=== PATIENT | female | born 1955 | race African-American/Black ===

== ENCOUNTER 2020-01-10 09:09 | Inpatient (IN) | payer OTHER ==
--- NOTE | 2020-01-10 12:19 | BHS.RME ---
Substance Use & Tx History - Substance Use History Heroin Substance amount: 2 bags Frequency of use: Daily Substance route: Inhalation (ex: sniffing or snorting) Date of Last Use: 01/09/20 Cocaine- Powder Substance amount: 2 bags Frequency of use: Daily Substance route: Inhalation (ex: sniffing or snorting) Date of Last Use: 01/09/20 Physical/Psych/Mental Status - Behavior General Behavior: Increased activity (restlessness, agitation) Eye Contact: Normal - Cooperativeness Cooperativeness: Cooperative - Thinking Thought Processes: Tight, Logical, Goal Directed - Physical Health Problems Is patient presently having any pain?: No Does patient presently have any injuries (include location): No Does patient currently have a fever: No Is patient : No COWS - Scale Resting Pulse: 2= [place] 101-120 Sweatin=Flushed/Facial Moisture Restless Observation: 1= Difficult to Sit Still Pupil Size: 2= Moderately Dilated Bone or Joint Aches: 2= Severe Diffuse Aches Runny Nose/ Eye Tearin= Runny Nose/Eyes GI Upset > 30mins: 2= Nausea/Diarrhea Tremor Observation: 1= Tremor [place], Not Seen Yawning Observation: 1= 1-2x During Session Anxiety or Irritability: 1=Feels Anxious/Irritable Goose Flesh Skin: 3=Piloerection COWS Score: 19
--- NOTE | 2020-01-10 12:25 | HP ---
COWS - Scale Resting Pulse: 2= [place] 101-120 Sweatin=Flushed/Facial Moisture Restless Observation: 1= Difficult to Sit Still Pupil Size: 2= Moderately Dilated Bone or Joint Aches: 2= Severe Diffuse Aches Runny Nose/ Eye Tearin= Runny Nose/Eyes GI Upset > 30mins: 2= Nausea/Diarrhea Tremor Observation: 1= Tremor [place], Not Seen Yawning Observation: 1= 1-2x During Session Anxiety or Irritability: 1=Feels Anxious/Irritable Goose Flesh Skin: 3=Piloerection COWS Score: 19 CIWA Score - Admission Criteria OASAS Guidelines: Admission for Medically Managed Detox: Requires at least one of the followin. CIWA greater than 12 2. Seizures within the past 24 hours 3. Delirium tremens within the past 24 hours 4. Hallucinations within the past 24 hours 5. Acute intervention needed for co occurring medical disorder 6. Acute intervention needed for co occurring psychiatric disorder 7. Severe withdrawal that cannot be handled at a lower level of care (continued vomiting, continued diarrhea, abnormal vital signs) requiring intravenous medication and/or fluids 8. Admitting History and Physical - Admission Chief Complaint: " I want to go to detox to stop and I have grandkids." History of Present Illness: 64 year old female with history of opioid dependence and cocaine use disorder. Heroin: 2 bags daily, started at age 42, she did overdose 6 months ago, last time used yesterday, doesn't have a narcan kit Cocaine: 2 bags daily, started using at age 22, last time used yesterday. PMH: HTN, DM,HLD, Psurg: C/S and tubal ligation Psych: Schizophrenia, Bipolar trazodone seroquel Lives with daughter and granddaughter in [place] No legal issues pending. She meets criteria as she has multiple medical and psychiatric co-morbidities and has overdosed in the past. History Source: Patient Limitations to Obtaining History: No Limitations - Past Medical History Cardiovascular: Yes: HTN, Hyperlipdemia Psych: Yes: Anxiety, Bipolar, Schizophrenia Endocrine: Yes: Diabetes Mellitus - Past Surgical History Past Surgical History: Yes: - Smoking History Smoking history: Current every day smoker Have you smoked in the past 12 months: Yes Aproximately how many cigarettes per day: 10 - Alcohol/Substance Use Hx Alcohol Use: No History of Substance Use: reports: Cocaine, Heroin Date of Last Use: 01/09/20 - Social History Usual Living Arrangement: Yes: With Child Do you think of yourself as: Straight/Heterosexual ADL: Independent Occupation: retired, on SSI History of Recent Travel: No Admission ROS [facility] Exam Limitations: No Limitations - Ebola screening Have you traveled outside of the country in the last 21 days: No Have you had contact with anyone from an Ebola affected area: No Have you been sick,other than usual withdrawal symptoms: No Do you have a fever: No - Review of Systems Constitutional: Chills, Diaphoresis, Loss of Appetite, Unintentional Wgt. Loss EENT: reports: No Symptoms Reported Respiratory: reports: No Symptoms reported Cardiac: reports: No Symptoms Reported GI: reports: No Symptoms Reported : reports: No Symptoms Reported Musculoskeletal: reports: No Symptoms Reported Integumentary: reports: No Symptoms Reported Neuro: reports: No Symptoms reported Endocrine: reports: No Symptoms Reported Hematology: reports: No Symptoms Reported Psychiatric: reports: Judgement Intact, Orientated x3, Agitated, Anxious Other Systems: Reviewed and Negative Patient History - Patient Medical History Hx Anemia: No Hx Asthma: No Hx Chronic Obstructive Pulmonary Disease (COPD): No Hx Cancer: No Hx Cardiac Disorders: No Hx Congestive Heart Failure: No Hx Hypertension: Yes Hx Hypercholesterolemia: Yes Hx Pacemaker: No HX Cerebrovascular Accident: No Hx Seizures: No Hx Dementia: No Hx Diabetes: Yes Hx Gastrointestinal Disorders: No Hx Liver Disease: No Hx Genitourinary Disorders: No Hx Sexually Transmitted Disorders: No Hx Renal Disease (ESRD): No Hx Thyroid Disease: No Hx Human Immunodeficiency Virus (HIV): No Hx Hepatitis C: No Hx Depression: No Hx Suicide Attempt: No Hx Bipolar Disorder: No Hx Schizophrenia: No - Patient Surgical History Past Surgical History: No Hx Neurologic Surgery: No Hx Cataract Extraction: No Hx Cardiac Surgery: No Hx Lung Surgery: No Hx Breast Surgery: No Hx Breast Biopsy: No Hx Abdominal Surgery: No Hx Appendectomy: No Hx Cholecystectomy: No Hx Genitourinary Surgery: No Hx Section: Yes Hx Orthopedic Surgery: No Hx Hysterectomy: No Anesthesia Reaction: No - PPD History Previous Implant?: Yes Documented Results: Negative w/o proof Implanted On Prior R Admission?: No PPD to be Administered?: Yes - Smoking Cessation Smoking history: Current every day smoker Have you smoked in the past 12 months: Yes Aproximately how many cigarettes per day: 10 Hx Chewing Tobacco Use: No Initiated information on smoking cessation: Yes 'Breaking Loose' booklet given: 01/10/20 - Substances abused Heroin Substance route: Inhalation Frequency: Daily Amount used: 2 bags Age of first use: 42 Date of last use: 01/09/20 Cocaine Substance route: Inhalation Frequency: Daily Amount used: 2 bags Age of first use: 22 Date of last use: 01/09/20 Admission Physical Exam [facility] - Physical General Appearance: Yes: Mild Distress, Irritable, Sweating, Anxious HEENTM: Yes: EOMI, Hearing grossly Normal, Normal ENT Inspection, Normocephalic, Normal Voice, KIARA, Pharynx Normal, Tm's normal Respiratory: Yes: Chest Non-Tender, Lungs Clear, Normal Breath Sounds, No Respiratory Distress, No Accessory Muscle Use Neck: Yes: No masses,lesions,Nodules, Supple, Trachea in good position Cleared for Admission [facility] - Detox or Rehab [facility] Level of Care: Medically Managed Detox Regimen/Protocol: Methadone Claeared for Rehab Admission: No Screened but not Admitted - Documentation of Visit Screened but not Admitted: No Breathalyzer - Breathalyzer Breathalyzer: 0 Urine Drug Screen - Test Device Lot number: [id number] Expiration date: 03/23/21 - Control Is test valid?: Yes - Results Drug screen NEGATIVE: No Urine drug screen results: DOROTHY-Cocaine, FEN-Fentanyl, MOP-Opiates Inpatient Rehab Admission - Rehab Decision to Admit Inpatient rehab admission?: No
[2020-01-10] MEDS ORDERED: MENTHOL/PHENOL 1 EACH UD MM PRN (12:35)
[2020-01-10] MEDS ORDERED: NICOTINE POLACRILEX 2 MG GUM BUC PRN (12:35)
[2020-01-10] MEDS ORDERED: BISMUTH SUBSALICYLATE 524 MG/30 ML UD PO PRN (12:35)
[2020-01-10] MEDS ORDERED: ACETAMINOPHEN 325 MG TABLET (FP) PO PRN ×2 (12:35)
[2020-01-10] MEDS ORDERED: IBUPROFEN 400 MG TABLET (FP) PO PRN (12:35)
[2020-01-10] MEDS ORDERED: MAGNESIUM CITRATE 300 ML BOTTLE PO PRN (12:35)
[2020-01-10] MEDS ORDERED: MAGNESIUM HYDROX 2400MG/30ML ORAL SUSPENSION 30 ML CUP PO PRN (12:35)
[2020-01-10 13:25] VITALS: BMI 16.5
[2020-01-10] MEDS ORDERED: ONDANSETRON *ODT* 4 MG TABLET SL ONE (13:30)
[2020-01-10] MEDS ORDERED: METHADONE HCL 10 MG TABLET (FOR DETOX USE ONLY) PO ONE (13:30)
[2020-01-10] MEDS: NICOTINE 7 MG/24 HOURS TOPICAL PATCH TD SCH (13:59)
[2020-01-10] MEDS ORDERED: hydrOXYzine PAMOATE 25 MG CAPSULE (FP) PO SCH (14:00)
[2020-01-10] MEDS ORDERED: hydrOXYzine PAMOATE 25 MG CAPSULE (FP) PO PRN (14:07)
[2020-01-10] MEDS: PRENATAL VITAMINS W/ FOLIC ACID TABLET (FP) PO SCH (14:09)
[2020-01-10 15:36] LABS: HEMATOCRIT 28.4 % (32.4-45.2); HEMOGLOBIN 9.1 GM/dL (10.7-15.3); MEAN CELL VOLUME 87.6 fl (80-96); MEAN PLT VOLUME 7.5 fl (7.5-11.1); PLATELET COUNT 437 K/MM3 (134-434); RBC 3.24 M/mm3 (3.60-5.2); RDW 15.6 % (11.6-15.6); WHITE BLOOD COUNT 4.9 K/mm3 (4.0-10.0)
[2020-01-10 15:44] LABS: ALBUMIN 2.3 g/dl (3.4-5.0); BILIRUBIN,TOTAL 0.3 mg/dL (0.2-1); BLOOD UREA NITROGEN 17.9 mg/dL (7-18); CALCIUM 8.3 mg/dL (8.5-10.1); CREATININE 1.1 mg/dL (0.55-1.3); POTASSIUM 4.7 mmol/L (3.5-5.1)
[2020-01-10] MEDS: MELATONIN 5 MG TABLETS PO SCH (21:40)
[2020-01-10] MEDS: THIAMINE HCL 100 MG TABLET (FP) PO SCH (21:40)
[2020-01-10] MEDS: METHOCARBAMOL 500 MG TABLET PO PRN (21:40)
[2020-01-10] MEDS: cloNIDine HCL 0.1 MG TABLET PO PRN (21:40)
[2020-01-11] MEDS ORDERED: METHADONE HCL 5 MG TABLET (FOR DETOX USE ONLY) ONE (09:39)
[2020-01-11] MEDS ORDERED: METHADONE HCL 10 MG TABLET (FOR DETOX USE ONLY) ONE (09:40)
[2020-01-11] MEDS ORDERED: METHADONE (DETOX) 20 MG, METHADONE (DETOX) 5 MG PO ONE (10:00)
[2020-01-11] MEDS: NICOTINE 7 MG/24 HOURS TOPICAL PATCH TD SCH (10:55)
[2020-01-11] MEDS: PRENATAL VITAMINS W/ FOLIC ACID TABLET (FP) PO SCH (10:56)
[2020-01-11] MEDS ORDERED: ESCITALOPRAM OXALATE 10 MG TABLET PO SCH ×2 (13:00)
--- NOTE | 2020-01-11 13:00 | PN ---
BHS COWS - Scale Resting Pulse: 0= [place] 80 or Below Sweatin= Chills/Flushing Restless Observation: 0= Sits Still Pupil Size: 0= Normal to Room Light Bone or Joint Aches: 2= Severe Diffuse Aches Runny Nose/ Eye Tearin= Nasal Congestion GI Upset > 30mins: 1= Stomach Cramp Tremor Observation of Outstretched Hands: 0= None Yawning Observation: 1= 1-2x During Session Anxiety or Irritability: 2=Irritable/Anxious Goose Flesh Skin: 3=Piloerection COWS Score: 11 BHS Progress Note (SOAP) Subjective: Fatigue, Anxious, Stomach Cramping, Interrupted Sleep. Objective: Patient A & O X 2 (Uncertain About Current Day/Date). 01/11/20 13:02 Vital Signs Temperature 98.1 F 01/11/20 08:54 Pulse Rate 72 01/11/20 08:54 Respiratory Rate 18 01/11/20 08:54 Blood Pressure 110/56 L 01/11/20 08:54 O2 Sat by Pulse Oximetry (%) 97 01/11/20 05:52 Laboratory Tests 01/10/20 01/10/20 01/10/20 12:50 12:50 12:50 WBC 4.9 RBC 3.24 L Hgb 9.1 L Hct 28.4 L MCV 87.6 MCH 28.0 MCHC 32.0 RDW 15.6 Plt Count 437 H MPV 7.5 Sodium 135 L Potassium 4.7 Chloride 100 Carbon Dioxide 31 Anion Gap 5 L BUN 17.9 Creatinine 1.1 Est GFR (CKD-EPI)AfAm 62.31 Est GFR (CKD-EPI)NonAf 53.76 POC Glucometer Random Glucose 90 Calcium 8.3 L Total Bilirubin 0.3 AST 17 ALT 13 Alkaline Phosphatase 112 Total Protein 6.0 L Albumin 2.3 L Syphilis Serology Non-reactive 01/10/20 01/11/20 17:12 06:43 WBC RBC Hgb Hct MCV MCH MCHC RDW Plt Count MPV Sodium Potassium Chloride Carbon Dioxide Anion Gap BUN Creatinine Est GFR (CKD-EPI)AfAm Est GFR (CKD-EPI)NonAf POC Glucometer 136 87 Random Glucose Calcium Total Bilirubin AST ALT Alkaline Phosphatase Total Protein Albumin Syphilis Serology LABS NOTED. Assessment: 01/11/20 13:03 WITHDRAWAL SYMPTOMS ANEMIA Plan: Continue Detox. Patient is currently receiving daily MVI containing B Vitamins and Iron while admitted for Detox. Doses of Psychiatric medications that Patient reports that she is currently prescribed (Lexapro, Seroquel, Buspar) ordered to cover Patient for today, 01/11/2020, as Psychiatrist is not available for Psychiatric Consultation today.
--- NOTE | 2020-01-11 17:53 | EKG ---
Test Reason : Blood Pressure : / mmHG Vent. Rate : 066 BPM Atrial Rate : 066 BPM P-R Int : 128 ms QRS Dur : 078 ms QT Int : 370 ms P-R-T Axes : 054 063 040 degrees QTc Int : 387 ms NORMAL SINUS RHYTHM NORMAL ECG NO PREVIOUS ECGS AVAILABLE Confirmed by MD Ghulam, Amos ([id number]) on 01/11/2020 5:53:29 PM Referred By: Confirmed By:Amos Parmar MD
[2020-01-11] MEDS: cloNIDine HCL 0.1 MG TABLET PO PRN (21:05)
--- NOTE | 2020-01-11 21:37 | PN ---
[facility] Progress Note Note: Due to concern about excessive sedation and safety, X 1 dose of Seroquel HS reduced to 150 mg HS for tonight, 01/11/2020. Patient to be evaluated by Psychiatrist tomorrow for further evaluation and subsequent dosing. Keisha Greenberg NP
[2020-01-11] MEDS ORDERED: QUEtiapine FUMARATE 50 MG TABLET PO SCH (22:00)
[2020-01-11] MEDS ORDERED: QUEtiapine FUMARATE 100 MG TABLET (FP) PO SCH ×2 (22:00)
[2020-01-11] MEDS: THIAMINE HCL 100 MG TABLET (FP) PO SCH (22:26)
[2020-01-11] MEDS: MELATONIN 5 MG TABLETS PO SCH (22:27)
--- NOTE | 2020-01-12 07:05 | CONSULT ---
[facility] Psychiatric Consult - Data Date of interview: 01/12/20 Admission source: [facility] Identifying data: Patient is a 64 year old female, mother of three, unemployed, domiciled, and is supported by [facility]. This is patient's first admission to detox at [facility]. Patient admitted to for cocaine and opiate dependence. Substance Abuse History: - Smoking Cessation. Smoking history: Current every day smoker. Have you smoked in the past 12 months: Yes. Aproximately how many cigarettes per day: 10. Hx Chewing Tobacco Use: No. Initiated information on smoking cessation: Yes. 'Breaking Loose' booklet given: 01/10/20. - Substances abused. Heroin. Substance route: Inhalation. Frequency: Daily. Amount used: 2 bags. Age of first use: 42. Date of last use: 01/09/20. Cocaine. Substance route: Inhalation. Frequency: Daily. Amount used: 2 bags. Age of first use: 22. Date of last use: 01/09/20 Medical History: Significant for Hypertension, Diabetes, and Hyperlipidemia Psychiatric History: Patient seen by program writer in detox. History remains consistent. Ms. Saez reports history of two psychiatric hospitalizations. In 1999 she was hospitalized at [facility] after a suicide attempt and hearing voices. She was diagnosed with schizophrenia and prescribed psychotropic medications. Patient's second psychiatric hospitalization occured in 2004 at [facility] due to depression. Ms. Saez is currently provided with psychiatric care at [facility] in [place] and claims to be prescribed trazodone 500mg??, Seroquel (unknown dose). Patient unaware of her dosages. She reports noncompliance to outpatient care for several months. At present patient reports feeling lethargic. Physical/Sexual Abuse/Trauma History: denies. Mental Status Exam - Mental Status Exam Alert and Oriented to: Time, Place, Person Cognitive Function: Good Patient Appearance: Well Groomed Mood: Hopeful Affect: Appropriate Patient Behavior: Fatigued, Cooperative Speech Pattern: Appropriate Voice Loudness: Mildly Soft/Quiet Thought Process: Goal Oriented Thought Disorder: Not Present Hallucinations: Denies Suicidal Ideation: Denies Homicidal Ideation: Denies Insight/Judgement: Poor Sleep: Fair Appetite: Fair Muscle strength/Tone: Normal Gait/Station: Normal Psychiatric Findings - Problem List ([place] 1, 2,3) (1) Cocaine use disorder Status: Acute (2) Opioid dependence with withdrawal Status: Acute (3) History of schizophrenia Status: Chronic - Initial Treatment Plan Initial Treatment Plan: Psychoeducation provided. Detoxification in progress. Will d/c seroquel 150mg HS due to patient feeling letharigic this morning. Patient also reports noncompliance for several months. In addition patient's BP at 7:50am was 99/60 at 7:50am. Will order Seroquel 100mg HS. Benefits and side effects discussed. Verbal consent given. Signal Inspector contacted [facility] @ [phone] for verfication of medication but attempt was unsucessful.
[2020-01-12] MEDS: PRENATAL VITAMINS W/ FOLIC ACID TABLET (FP) PO SCH (09:33)
[2020-01-12] MEDS: NICOTINE 7 MG/24 HOURS TOPICAL PATCH TD SCH (09:33)
[2020-01-12] MEDS ORDERED: METHADONE HCL 10 MG TABLET (FOR DETOX USE ONLY) PO ONE (10:00)
--- NOTE | 2020-01-12 12:23 | PN ---
BHS COWS - Scale Resting Pulse: 1= [place] 81-100 Sweatin= Chills/Flushing Restless Observation: 1= Difficult to Sit Still Pupil Size: 0= Normal to Room Light Bone or Joint Aches: 2= Severe Diffuse Aches Runny Nose/ Eye Tearin= None GI Upset > 30mins: 0= None Tremor Observation of Outstretched Hands: 0= None Yawning Observation: 1= 1-2x During Session Anxiety or Irritability: 2=Irritable/Anxious Goose Flesh Skin: 0=Smooth Skin COWS Score: 8 S Progress Note (SOAP) Subjective: c/o anxiety, irritability, muscle aches, and chills. Objective: 01/12/20 12:21 Vital Signs 01/12/20 01/12/20 01/12/20 05:35 07:50 08:50 Temperature 97.8 F 98.4 F Pulse Rate 60 76 91 H Respiratory 16 16 Rate Blood Pressure 89/52 L 99/60 102/68 O2 Sat by Pulse 99 Oximetry (%) Laboratory Last Values WBC 4.9 K/mm3 (4.0-10.0) 01/10/20 12:50 RBC 3.24 M/mm3 (3.60-5.2) L 01/10/20 12:50 Hgb 9.1 GM/dL (10.7-15.3) L 01/10/20 12:50 Hct 28.4 % (32.4-45.2) L 01/10/20 12:50 MCV 87.6 fl (80-96) 01/10/20 12:50 MCH 28.0 pg (25.7-33.7) 01/10/20 12:50 MCHC 32.0 g/dl (32.0-36.0) 01/10/20 12:50 RDW 15.6 % (11.6-15.6) 01/10/20 12:50 Plt Count 437 K/MM3 (134-434) H 01/10/20 12:50 MPV 7.5 fl (7.5-11.1) 01/10/20 12:50 Sodium 135 mmol/L (136-145) L 01/10/20 12:50 Potassium 4.7 mmol/L (3.5-5.1) 01/10/20 12:50 Chloride 100 mmol/L (98-107) 01/10/20 12:50 Carbon Dioxide 31 mmol/L (21-32) 01/10/20 12:50 Anion Gap 5 MMOL/L (8-16) L 01/10/20 12:50 BUN 17.9 mg/dL (7-18) 01/10/20 12:50 Creatinine 1.1 mg/dL (0.55-1.3) 01/10/20 12:50 Est GFR (CKD-EPI)AfAm 62.31 01/10/20 12:50 Est GFR (CKD-EPI)NonAf 53.76 01/10/20 12:50 POC Glucometer 85 UNITS (80-120) 01/12/20 05:56 Random Glucose 90 mg/dL (74-106) 01/10/20 12:50 Calcium 8.3 mg/dL (8.5-10.1) L 01/10/20 12:50 Total Bilirubin 0.3 mg/dL (0.2-1) 01/10/20 12:50 AST 17 U/L (15-37) 01/10/20 12:50 ALT 13 U/L (13-61) 01/10/20 12:50 Alkaline Phosphatase 112 U/L (45-117) 01/10/20 12:50 Total Protein 6.0 g/dl (6.4-8.2) L 01/10/20 12:50 Albumin 2.3 g/dl (3.4-5.0) L 01/10/20 12:50 Syphilis Serology Non-reactive (NONREACTIVE) 01/10/20 12:50 COVID-19 (DANAY) Not detected (Not Detected) 01/10/20 13:00 HIV Ag/Ab Combo Qual Negative (NEGATIVE) 01/11/20 05:50 Labs noted. Assessment: 01/12/20 12:22 AOx3, in no acute respiratory distress. Full ROM, ambulating in the unit. Withdrawal symptoms. Plan: continue detox.
[2020-01-12] MEDS: THIAMINE HCL 100 MG TABLET (FP) PO SCH (22:12)
[2020-01-12] MEDS: QUEtiapine FUMARATE 100 MG TABLET (FP) PO SCH (22:12)
[2020-01-12] MEDS: MELATONIN 5 MG TABLETS PO SCH (22:13)
[2020-01-12] MEDS: METHOCARBAMOL 500 MG TABLET PO PRN (22:13)
[2020-01-13] MEDS ORDERED: METHADONE HCL 10 MG TABLET (FOR DETOX USE ONLY) ONE (08:30)
[2020-01-13] MEDS ORDERED: METHADONE HCL 5 MG TABLET (FOR DETOX USE ONLY) ONE (08:31)
[2020-01-13] MEDS: PRENATAL VITAMINS W/ FOLIC ACID TABLET (FP) PO SCH (09:06)
[2020-01-13] MEDS: NICOTINE 7 MG/24 HOURS TOPICAL PATCH TD SCH (09:08)
[2020-01-13] MEDS ORDERED: METHADONE (DETOX) 10 MG, METHADONE (DETOX) 5 MG PO ONE (10:00)
[2020-01-13] MEDS: CYPROHEPTADINE HCL 4 MG TABLET PO SCH ×2 (11:03→16:50)
[2020-01-13] MEDS: BACITRACIN 0.9 GM PACKET TP SCH ×2 (11:03→21:37)
--- NOTE | 2020-01-13 12:42 | PN ---
Psychiatric Progress Note Vital Signs: Vital Signs Period Temp Pulse Resp BP Sys/Alfaro Pulse Ox Last 24 Hr 97.1 F-98.9 F 67-99 16-18 103-130/66-84 99-100 Date of Session: 01/13/20 Chief Complaint:: " i want to resume my psychiatric medications." HPI: Patient admitted to for cocaine and opiate dependence. Consultation ordered for medication reevaluation. ROS: Patient is ambulatory, alert +oriented X3. Current Medications: Active Medications Generic Name Dose Route Start Last Admin Trade Name Freq PRN Reason Stop Dose Admin Acetaminophen 650 mg 01/10/20 12:35 Tylenol - PO Q6H PRN PAIN LEVEL 4 - 6 Acetaminophen 650 mg 01/10/20 12:35 Tylenol - PO Q6H PRN FEVER Al Hydroxide/Mg Hydroxide 30 ml 01/10/20 12:35 Mylanta Oral Suspension - PO Q6H PRN DYSPEPSIA Bacitracin 0.9 gm 01/13/20 10:15 01/13/20 11:03 Bacitracin - TP 0.9 gm BID PARESH Administration Bismuth Subsalicylate 524 mg 01/10/20 12:35 Pepto-Bismol - PO Q1H PRN DIARRHEA Cyproheptadine HCl 4 mg 01/13/20 11:00 01/13/20 11:03 Periactin - PO 4 mg TIDAC PARESH Administration Eucalyptus/Menthol/Phenol/Sorbitol 1 each 01/10/20 12:35 Cepastat Lozenge - MM 01/16/20 12:35 Q4H PRN SORE THROAT Ibuprofen 400 mg 01/10/20 12:35 01/12/20 20:04 Motrin - PO 400 mg Q6H PRN Administration PAIN LEVEL 1 - 3 Magnesium Citrate 300 ml 01/10/20 12:35 Citroma - PO Q48H PRN CONSTIPATION Magnesium Hydroxide 30 ml 01/10/20 12:35 Milk Of Magnesia - PO PRN PRN CONSTIPATION Melatonin 5 mg 01/10/20 22:00 01/12/20 22:13 Melatonin PO 5 mg HS PARESH Administration Methadone HCl 5 mg 01/15/20 06:00 Dolophine - PO 01/15/20 06:01 ONCE@0600 ONE Methadone HCl 10 mg 01/14/20 10:00 Dolophine - PO 01/14/20 10:01 ONCE ONE Methocarbamol 500 mg 01/10/20 12:35 01/12/20 22:13 Robaxin - PO 01/16/20 12:35 500 mg Q6H PRN Administration MUSCLE SPASMS Nicotine 7 mg 01/10/20 13:30 01/13/20 09:08 Nicoderm Patch - TD 7 mg DAILY PARESH Administration Nicotine Polacrilex 2 mg 01/10/20 12:35 Nicorette Gum - BUC Q2H PRN NICOTINE REPLACEMENT RX Multivit/Folic Acid/Iron 1 tab 01/10/20 12:45 01/13/20 09:06 Vitamins (Sjr) - PO 1 tab DAILY PARESH Administration Quetiapine Fumarate 100 mg 01/12/20 22:00 01/12/20 22:12 Seroquel - PO 100 mg HS PARESH Administration Thiamine HCl 100 mg 01/10/20 22:00 01/12/20 22:12 Vitamin B1 - PO 100 mg HS PARESH Administration Medication(s) Change(s): Yes. Will restart Lexapro 10mg daily + Buspar 15mg BID. Current Side Effect: No Lab tests ordered: No Lab tests reviewed: Yes Provider note:: Patient requesting to resume her psychotropic medication which she has not taken in several months. [email or web address] contacted at [phone]. As per pharmacy staff patient's most recent psychotropic medication were filled on 12/10/19 for lexapro 10mg + Buspar 15mg BID + Seroquel 300mg HS + Trazodone 150mg HS. Ms. Saez received a 30 day prescription for all medications. Will resume lexapro 10mg + buspar 15mg. Will titrate medications slowly as patient has been off medications for several months. Patient in agreement with plan. Total face to face time:: 25 Mental Status Exam - Mental Status Exam Alert and Oriented to: Time, Place, Person Cognitive Function: Good Patient Appearance: Well Groomed Mood: Hopeful Affect: Appropriate Patient Behavior: Appropriate, Cooperative Speech Pattern: Appropriate Voice Loudness: Normal Thought Process: Goal Oriented Thought Disorder: Not Present Hallucinations: Denies Suicidal Ideation: Denies Homicidal Ideation: Denies Insight/Judgement: Poor Sleep: Fair Appetite: Fair Muscle strength/Tone: Normal Gait/Station: Normal Psychiatric Treatment Plan - Problem List (1) Cocaine use disorder Current Visit: Yes (2) Opioid dependence with withdrawal Current Visit: Yes (3) History of schizophrenia Current Visit: Yes
--- NOTE | 2020-01-13 13:04 | PN ---
BHS COWS - Scale Resting Pulse: 1= [place] 81-100 Sweatin= No chills or Flushing Restless Observation: 0= Sits Still Pupil Size: 0= Normal to Room Light Bone or Joint Aches: 1= Mild Discomfort Runny Nose/ Eye Tearin= Nasal Congestion GI Upset > 30mins: 1= Stomach Cramp Tremor Observation of Outstretched Hands: 1= Tremor [place], Not Seen Yawning Observation: 0= None Anxiety or Irritability: 2=Irritable/Anxious Goose Flesh Skin: 0=Smooth Skin COWS Score: 7 BHS Progress Note (SOAP) Subjective: alert,irritable anxious,interrupted sleep,pain in the body,insomnia,poor appetite,ambulation on the unit Objective: 01/13/20 13:06 Vital Signs Temperature 97.6 F 01/13/20 08:40 Pulse Rate 97 H 01/13/20 08:40 Respiratory Rate 18 01/13/20 08:40 Blood Pressure 111/73 01/13/20 08:40 O2 Sat by Pulse Oximetry (%) 99 01/13/20 06:04 Laboratory Last Values WBC 4.9 K/mm3 (4.0-10.0) 01/10/20 12:50 RBC 3.24 M/mm3 (3.60-5.2) L 01/10/20 12:50 Hgb 9.1 GM/dL (10.7-15.3) L 01/10/20 12:50 Hct 28.4 % (32.4-45.2) L 01/10/20 12:50 MCV 87.6 fl (80-96) 01/10/20 12:50 MCH 28.0 pg (25.7-33.7) 01/10/20 12:50 MCHC 32.0 g/dl (32.0-36.0) 01/10/20 12:50 RDW 15.6 % (11.6-15.6) 01/10/20 12:50 Plt Count 437 K/MM3 (134-434) H 01/10/20 12:50 MPV 7.5 fl (7.5-11.1) 01/10/20 12:50 Sodium 135 mmol/L (136-145) L 01/10/20 12:50 Potassium 4.7 mmol/L (3.5-5.1) 01/10/20 12:50 Chloride 100 mmol/L (98-107) 01/10/20 12:50 Carbon Dioxide 31 mmol/L (21-32) 01/10/20 12:50 Anion Gap 5 MMOL/L (8-16) L 01/10/20 12:50 BUN 17.9 mg/dL (7-18) 01/10/20 12:50 Creatinine 1.1 mg/dL (0.55-1.3) 01/10/20 12:50 Est GFR (CKD-EPI)AfAm 62.31 01/10/20 12:50 Est GFR (CKD-EPI)NonAf 53.76 01/10/20 12:50 POC Glucometer 93 UNITS (80-120) 01/13/20 05:50 Random Glucose 90 mg/dL (74-106) 01/10/20 12:50 Calcium 8.3 mg/dL (8.5-10.1) L 01/10/20 12:50 Total Bilirubin 0.3 mg/dL (0.2-1) 01/10/20 12:50 AST 17 U/L (15-37) 01/10/20 12:50 ALT 13 U/L (13-61) 01/10/20 12:50 Alkaline Phosphatase 112 U/L (45-117) 01/10/20 12:50 Total Protein 6.0 g/dl (6.4-8.2) L 01/10/20 12:50 Albumin 2.3 g/dl (3.4-5.0) L 01/10/20 12:50 Syphilis Serology Non-reactive (NONREACTIVE) 01/10/20 12:50 COVID-19 (DANAY) Not detected (Not Detected) 01/10/20 13:00 HIV Ag/Ab Combo Qual Negative (NEGATIVE) 01/11/20 05:50 Assessment: 01/13/20 13:07 withdrawal symptom Plan: continue detox methadone regimen,periactin 4mgs po tidac before each meal,continue glucerna 1 can po bid,psychiatric reevaluation for medications, encourage oral fluid hydration ,bacitracin ointment to both lips for dryness
[2020-01-13] MEDS: METHOCARBAMOL 500 MG TABLET PO PRN ×2 (15:31→23:32)
[2020-01-13] MEDS: MELATONIN 5 MG TABLETS PO SCH (21:37)
[2020-01-13] MEDS: THIAMINE HCL 100 MG TABLET (FP) PO SCH (21:37)
[2020-01-13] MEDS: QUEtiapine FUMARATE 100 MG TABLET (FP) PO SCH (21:37)
[2020-01-14] MEDS: CYPROHEPTADINE HCL 4 MG TABLET PO SCH ×3 (06:59→16:49)
[2020-01-14] MEDS: BACITRACIN 0.9 GM PACKET TP SCH ×2 (09:26→22:16)
[2020-01-14] MEDS: ESCITALOPRAM OXALATE 10 MG TABLET PO SCH (09:27)
[2020-01-14] MEDS: PRENATAL VITAMINS W/ FOLIC ACID TABLET (FP) PO SCH (09:27)
[2020-01-14] MEDS: NICOTINE 7 MG/24 HOURS TOPICAL PATCH TD SCH (09:28)
[2020-01-14] MEDS ORDERED: METHADONE HCL 10 MG TABLET (FOR DETOX USE ONLY) PO ONE (10:00)
--- NOTE | 2020-01-14 10:12 | PN ---
BHS COWS - Scale Resting Pulse: 0= [place] 80 or Below Sweatin= No chills or Flushing Restless Observation: 0= Sits Still Pupil Size: 0= Normal to Room Light Bone or Joint Aches: 1= Mild Discomfort Runny Nose/ Eye Tearin= Nasal Congestion GI Upset > 30mins: 1= Stomach Cramp Tremor Observation of Outstretched Hands: 0= None Yawning Observation: 0= None Anxiety or Irritability: 2=Irritable/Anxious Goose Flesh Skin: 0=Smooth Skin COWS Score: 5 BHS Progress Note (SOAP) Subjective: alert,irritable,anxious,interrupted sleep,poor appetite Vital Signs Temperature 97.3 F L 01/14/20 08:40 Pulse Rate 79 01/14/20 08:40 Respiratory Rate 16 01/14/20 08:40 Blood Pressure 104/68 01/14/20 08:40 O2 Sat by Pulse Oximetry (%) 96 01/14/20 06:14 Objective: 01/14/20 10:11 Vital Signs Temperature 97.3 F L 01/14/20 08:40 Pulse Rate 79 01/14/20 08:40 Respiratory Rate 16 01/14/20 08:40 Blood Pressure 104/68 01/14/20 08:40 O2 Sat by Pulse Oximetry (%) 96 01/14/20 06:14 Assessment: 01/14/20 10:11 withdrawal symptom Plan: continue detox methadone regimen,discharge in am
[2020-01-14] MEDS: METHOCARBAMOL 500 MG TABLET PO PRN (12:36)
[2020-01-14] MEDS: MAG HYDROX/AL HYDROX/SIMETH 30 ML UNIT-DOSE CUP PO PRN (17:04)
[2020-01-14] MEDS: MELATONIN 5 MG TABLETS PO SCH (22:16)
[2020-01-14] MEDS: QUEtiapine FUMARATE 100 MG TABLET (FP) PO SCH (22:16)
[2020-01-14] MEDS: THIAMINE HCL 100 MG TABLET (FP) PO SCH (22:16)
[2020-01-15] MEDS ORDERED: METHADONE HCL 5 MG TABLET (FOR DETOX USE ONLY) PO ONE (06:00)
[2020-01-15] MEDS: CYPROHEPTADINE HCL 4 MG TABLET PO SCH ×2 (06:09→10:21)
[2020-01-15] MEDS: PRENATAL VITAMINS W/ FOLIC ACID TABLET (FP) PO SCH (10:21)
[2020-01-15] MEDS: ESCITALOPRAM OXALATE 10 MG TABLET PO SCH (10:21)
[2020-01-15] MEDS: BACITRACIN 0.9 GM PACKET TP SCH (10:22)
[2020-01-15] MEDS: NICOTINE 7 MG/24 HOURS TOPICAL PATCH TD SCH (10:23)
[2020-01-15] MEDS: MAG HYDROX/AL HYDROX/SIMETH 30 ML UNIT-DOSE CUP PO PRN (10:33)
--- NOTE | 2020-01-15 12:58 | DS ---
[facility] Detox Discharge Summary Admission Date: 01/10/20 Discharge Date: 01/15/20 - History Present History: Opioid Dependence Additional Comments: 64 years old female admitted on 01/10/20 for opiate withdrawal sx management treated with methadone detox regiment seen by psychiatrist valerie villarreal Ms Saez has completed the detox regiment and is tolerated well alert oriented x 3 ambulating with steady gaits cardiac s1s2 regular rate rhythm respiratory clear lung sounds bilaterally on auscultation extremities full range of motion Pertinent Past History: time for discharge 33 minutes - Physical Exam Results Vital Signs: Vital Signs Temperature 98.3 F 01/15/20 11:32 Pulse Rate 70 01/15/20 11:32 Respiratory Rate 18 01/15/20 11:32 Blood Pressure 149/85 01/15/20 11:32 O2 Sat by Pulse Oximetry (%) 100 01/15/20 06:14 Pertinent Admission Physical Exam Findings: opiate withdrawal Vital Signs - 24 hr 01/14/20 01/14/20 01/15/20 17:18 20:30 00:45 Temperature 97.3 F L 97.7 F Pulse Rate 60 80 Respiratory 17 17 16 Rate Blood Pressure 108/69 135/77 O2 Sat by Pulse 98 Oximetry (%) 01/15/20 01/15/20 01/15/20 03:36 06:14 08:56 Temperature 97.3 F L 96.5 F L Pulse Rate 67 67 Respiratory 16 18 18 Rate Blood Pressure 110/56 L 106/68 O2 Sat by Pulse 100 Oximetry (%) 01/15/20 11:32 Temperature 98.3 F Pulse Rate 70 Respiratory 18 Rate Blood Pressure 149/85 O2 Sat by Pulse Oximetry (%) Laboratory Tests 01/10/20 01/10/20 01/10/20 12:50 12:50 12:50 WBC 4.9 RBC 3.24 L Hgb 9.1 L Hct 28.4 L MCV 87.6 MCH 28.0 MCHC 32.0 RDW 15.6 Plt Count 437 H MPV 7.5 Sodium 135 L Potassium 4.7 Chloride 100 Carbon Dioxide 31 Anion Gap 5 L BUN 17.9 Creatinine 1.1 Est GFR (CKD-EPI)AfAm 62.31 Est GFR (CKD-EPI)NonAf 53.76 POC Glucometer Random Glucose 90 Calcium 8.3 L Total Bilirubin 0.3 AST 17 ALT 13 Alkaline Phosphatase 112 Total Protein 6.0 L Albumin 2.3 L Syphilis Serology Non-reactive COVID-19 (DANAY) HIV Ag/Ab Combo Qual 01/10/20 01/10/20 01/11/20 13:00 17:12 05:50 WBC RBC Hgb Hct MCV MCH MCHC RDW Plt Count MPV Sodium Potassium Chloride Carbon Dioxide Anion Gap BUN Creatinine Est GFR (CKD-EPI)AfAm Est GFR (CKD-EPI)NonAf POC Glucometer 136 Random Glucose Calcium Total Bilirubin AST ALT Alkaline Phosphatase Total Protein Albumin Syphilis Serology COVID-19 (DANAY) Not detected HIV Ag/Ab Combo Qual Negative 01/11/20 01/11/20 01/12/20 06:43 16:46 05:56 WBC RBC Hgb Hct MCV MCH MCHC RDW Plt Count MPV Sodium Potassium Chloride Carbon Dioxide Anion Gap BUN Creatinine Est GFR (CKD-EPI)AfAm Est GFR (CKD-EPI)NonAf POC Glucometer 87 106 85 Random Glucose Calcium Total Bilirubin AST ALT Alkaline Phosphatase Total Protein Albumin Syphilis Serology COVID-19 (DANAY) HIV Ag/Ab Combo Qual 01/12/20 01/13/20 01/13/20 16:23 05:50 16:30 WBC RBC Hgb Hct MCV MCH MCHC RDW Plt Count MPV Sodium Potassium Chloride Carbon Dioxide Anion Gap BUN Creatinine Est GFR (CKD-EPI)AfAm Est GFR (CKD-EPI)NonAf POC Glucometer 77 93 135 Random Glucose Calcium Total Bilirubin AST ALT Alkaline Phosphatase Total Protein Albumin Syphilis Serology COVID-19 (DANAY) HIV Ag/Ab Combo Qual 01/14/20 01/14/20 01/15/20 05:44 16:37 05:48 WBC RBC Hgb Hct MCV MCH MCHC RDW Plt Count MPV Sodium Potassium Chloride Carbon Dioxide Anion Gap BUN Creatinine Est GFR (CKD-EPI)AfAm Est GFR (CKD-EPI)NonAf POC Glucometer 88 140 67 Random Glucose Calcium Total Bilirubin AST ALT Alkaline Phosphatase Total Protein Albumin Syphilis Serology COVID-19 (DANAY) HIV Ag/Ab Combo Qual - Treatment Hospital Course: Detox Protocol Followed, Detoxed Safely, Responded well, Discharged Condition Good, Rehab Referral Accepted Patient has Accepted a [facility] Referral [facility] - Medication Discharge Medications: Ambulatory Orders Buspirone HCl [Buspar -] 15 mg PO BID 01/10/20 Escitalopram Oxalate [Lexapro -] 10 mg PO DAILY 01/10/20 Lisinopril [Prinivil] 20 mg PO DAILY 01/10/20 Lovastatin 20 mg PO HS 01/10/20 Metoprolol Succinate [Toprol Xl] 25 mg PO DAILY 01/10/20 Quetiapine Fumarate [Seroquel -] 300 mg PO HS 01/10/20 traZODone HCL [Trazodone HCl] 150 mg PO HS 01/10/20 metFORMIN HCL [Metformin HCl] 500 mg PO BID 01/15/20 - Diagnosis (1) Opioid dependence with withdrawal Current Visit: Yes Status: Acute (2) Diabetes mellitus type II, non insulin dependent Current Visit: Yes Status: Chronic (3) Substance induced mood disorder Current Visit: Yes Status: Suspected - AMA Did Patient Leave Against Medical Advice: No COWS (PN) - Opiate Withdrawal Resting Pulse: 0= [place] 80 or Below Sweatin= No chills or Flushing Restless Observation: 0= Sits Still Pupil Size: 0= Normal to Room Light Bone or Joint Aches: 1= Mild Discomfort Runny Nose/ Eye Tearin= None GI Upset > 30mins: 0= None Tremor Observation of Outstretched Hands: 1= Tremor [place], Not Seen Yawning Observation: 0= None Anxiety or Irritability: 1=Feels Anxious/Irritable Goose Flesh Skin: 0=Smooth Skin COWS Score: 3
--- NOTE | 2020-01-15 12:59 | HP ---
[facility] Re[facility] Assess/Revision - Admission History Admitted to Rehab from: [facility] Date of Admission to Rehab: 01/15/20 - Vital signs Vital Signs: Vital Signs Period Temp Pulse Resp BP Sys/Alfaro Pulse Ox Last 24 Hr 96.5 F-98.3 F 60-80 16-18 106-149/56-85 98-100 - Findings Detox History & Physical reviewed: Yes Concur with findings: Yes Comments/Additional Findings: transferred from detox to rehab admission as per protocol Inpatient Rehab Admission - Rehab Decision to Admit Inpatient rehab admission?: Yes - Initial Determination Are CD services needed?: Yes Free of communicable disease: Yes Not in need of hospitalization: Yes - Rehab Admission Criteria Previous failed treatment: Yes Poor recovery environment: Yes Comorbidities: Yes Lacks judgement: Yes Patient is meeting Inpatient Rehab admission criteria:: Yes
[2020-01-15] MEDS ORDERED: metFORMIN HCL 500 MG TABLET (FP) PO SCH (16:30)
[2020-01-15 17:45] VITALS: BP 149/85; PULSE 70; TEMP 98.3
[2020-01-16] MEDS ORDERED: metoPROLOL SUCCINATE 25 MG TAB.SR.24H (FP) PO SCH (10:00)
[2020-01-16] MEDS ORDERED: LISINOPRIL 20 MG TABLET (FP) PO SCH (10:00)
== END 2020-01-15 12:00 | disposition home or self-care (01) | DRG 897 ==
LOC: YASAS 09:09 → Y6N 13:08 → Y3N 01-11 14:38 → Y3W 01-15 11:04
PROVIDERS: ADMIT Allergy & Immunology; ATTEND Allergy & Immunology
PROC: HZ2ZZZZ Detoxification Services for Substance Abuse Treatment (ICD-10-PCS; principal; 2020-01-10)
DX: F11.23 Opioid dependence with withdrawal (principal); F14.20 Cocaine dependence, uncomplicated; F17.210 Nicotine dependence, cigarettes, uncomplicated; F19.24 Other psychoactive substance dependence with psychoactive substance-induced mood disorder; F20.9 Schizophrenia, unspecified; F31.9 Bipolar disorder, unspecified; D64.9 Anemia, unspecified; E78.5 Hyperlipidemia, unspecified; E11.9 Type 2 diabetes mellitus without complications; Z79.84 Long term (current) use of oral hypoglycemic drugs; Z56.0 Unemployment, unspecified
CPT/HCPCS: 36415; 80053; 82962; 85027; 86780; 87389; 93005; 93010; J0735; U0003

== ENCOUNTER 2020-01-15 15:50 | Inpatient (IN) | payer OTHER ==
--- NOTE | 2020-01-15 13:02 | DS ---
[facility] Detox Discharge Summary - Medication Discharge Medications: Ambulatory Orders Buspirone HCl [Buspar -] 15 mg PO BID 01/10/20 Escitalopram Oxalate [Lexapro -] 10 mg PO DAILY 01/10/20 Lisinopril [Prinivil] 20 mg PO DAILY 01/10/20 Lovastatin 20 mg PO HS 01/10/20 Metoprolol Succinate [Toprol Xl] 25 mg PO DAILY 01/10/20 Quetiapine Fumarate [Seroquel -] 300 mg PO HS 01/10/20 traZODone HCL [Trazodone HCl] 150 mg PO HS 01/10/20 metFORMIN HCL [Metformin HCl] 500 mg PO BID 01/15/20
[2020-01-15] MEDS ORDERED: ACETAMINOPHEN 325 MG TABLET (FP) PO PRN (15:58)
[2020-01-15] MEDS ORDERED: MENTHOL/PHENOL 1 EACH UD MM PRN (15:58)
[2020-01-15] MEDS ORDERED: LOPERAMIDE HCL 2 MG CAPSULE PO PRN (15:58)
[2020-01-15] MEDS ORDERED: MAGNESIUM CITRATE 300 ML BOTTLE PO PRN (15:58)
[2020-01-15] MEDS ORDERED: NICOTINE POLACRILEX 2 MG GUM BUC PRN (15:58)
[2020-01-15] MEDS ORDERED: guaiFENesin 200 MG/10 ML 10 ML UNIT-DOSE CUPS PO PRN (15:58)
[2020-01-15] MEDS ORDERED: MAGNESIUM HYDROX 2400MG/30ML ORAL SUSPENSION 30 ML CUP PO PRN (15:58)
[2020-01-15] MEDS ORDERED: P-EPHED 60MG/TRIPROLIDI 2.5MG TABLET PO PRN (15:58)
--- NOTE | 2020-01-15 16:04 | PN ---
[facility] Progress Note Note: patient admitted to rehab. PMHx: 64 year old female with history of opioid dependence and cocaine use disorder. Heroin: 2 bags daily, started at age 42, she did overdose 6 months ago,doesn't have a narcan kit Cocaine: 2 bags daily, started using at age 22 PMH: HTN, DM,HLD, Psurg: C/S and tubal ligation Psych: Schizophrenia, Bipolar trazodone seroquel Lives with daughter and granddaughter in [place] No legal issues pending. P/E; General: no apparent distress HEENTM: normocephalic, PERRLA NEck: supple Lungs: clear Heart: s1 s2 ABD; +BS MSK: full weight bearing, steady gait, Neuro: No cognitive deficits noted A/P Substance Use Disorder Continue Rehab Maintain safety and nutrition
[2020-01-15] MEDS: metFORMIN HCL 500 MG TABLET (FP) PO SCH (22:09)
[2020-01-15] MEDS: MELATONIN 5 MG TABLETS PO SCH (22:10)
[2020-01-15] MEDS: THIAMINE HCL 100 MG TABLET (FP) PO SCH (22:10)
[2020-01-16] MEDS: PRENATAL VITAMINS W/ FOLIC ACID TABLET (FP) PO SCH (09:47)
[2020-01-16] MEDS: LISINOPRIL 20 MG TABLET (FP) PO SCH (09:48)
[2020-01-16] MEDS: metFORMIN HCL 500 MG TABLET (FP) PO SCH ×2 (09:48→17:02)
[2020-01-16] MEDS: metoPROLOL SUCCINATE 25 MG TAB.SR.24H (FP) PO SCH (09:49)
[2020-01-16] MEDS: NICOTINE 14 MG/24 HOURS TOPICAL PATCH TD SCH (09:50)
[2020-01-16] MEDS: hydrOXYzine PAMOATE 25 MG CAPSULE (FP) PO PRN (09:51)
[2020-01-16] MEDS: MAG HYDROX/AL HYDROX/SIMETH 30 ML UNIT-DOSE CUP PO PRN ×2 (10:00→19:10)
[2020-01-16] MEDS: CYPROHEPTADINE HCL 4 MG TABLET PO SCH ×2 (12:04→17:01)
--- NOTE | 2020-01-16 16:20 | CONSULT ---
[facility] Psychiatric Consult - Data Date of interview: 01/16/20 Admission source: [facility] Identifying data: Patient is a 64 year old female, mother of three daughters, unemployed, domiciled, and is supported by [facility]. This is patient's first admission to detox at [facility]. Patient admitted to for cocaine and opiate dependence. Substance Abuse History: Smoking Cessation. Smoking history: Current every day smoker. Have you smoked in the past 12 months: Yes. Aproximately how many cigarettes per day: 10. Hx Chewing Tobacco Use: No. Initiated information on smoking cessation: Yes. 'Breaking Loose' booklet given: 01/10/20. - Substances abused. Heroin. Substance route: Inhalation. Frequency: Daily. Amount used: 2 bags. Age of first use: 42. Date of last use: 01/09/20. Cocaine. Substance route: Inhalation. Frequency: Daily. Amount used: 2 bags. Age of first use: 22. Date of last use: 01/09/20 Medical History: Significant for Hypertension, Diabetes, and Hyperlipidemia Psychiatric History: Ms. Saez reports history of two psychiatric hospitalizations. In 1999 she was hospitalized at [facility] after having a suicide attempt and endorsing auditory hallucinations. She was diagnosed with schizophrenia and prescribed psychotropic medications. Patient's second psychiatric hospitalization occured in 2004 at [facility] due to depression. Ms. Saez is currently provided with psychiatric care at [facility] in [place]. Pharmacy contacted and medications were verified while in detox. Lexapro 10mg + Buspar 15mg BID + Seroquel 300mg HS + Trazodone 150mg. Patient was noncompliant to medications for several months prior to admission to detox. Patient denies suicidal/homicidal ideaton, auditory/visual hallucinations. Physical/Sexual Abuse/Trauma History: denies. Mental Status Exam - Mental Status Exam Alert and Oriented to: Time, Place, Person Cognitive Function: Good Patient Appearance: Well Groomed Mood: Withdrawn Affect: Mood Congruent Patient Behavior: Fatigued, Cooperative Speech Pattern: Appropriate Voice Loudness: Normal Thought Process: Intact, Goal Oriented Thought Disorder: Not Present Hallucinations: Denies Suicidal Ideation: Denies Homicidal Ideation: Denies Insight/Judgement: Poor Sleep: Poorly Appetite: Fair Muscle strength/Tone: Normal Gait/Station: Normal Psychiatric Findings - Problem List ([place] 1, 2,3) (1) Opioid dependence Current Visit: Yes Status: Acute (2) Cocaine use disorder Current Visit: Yes Status: Acute (3) History of schizophrenia Current Visit: Yes Status: Chronic - Initial Treatment Plan Initial Treatment Plan: Psychoeducation provided. Detoxification in progress. Will order Lexapro 10mg daily + Buspar 15mg BID + Seroquel 100mg HS. Benefits an d side effects discussed. Verbal consent given.
[2020-01-16] MEDS: MELATONIN 5 MG TABLETS PO SCH (21:33)
[2020-01-16] MEDS: QUEtiapine FUMARATE 100 MG TABLET (FP) PO SCH (21:33)
[2020-01-16] MEDS: THIAMINE HCL 100 MG TABLET (FP) PO SCH (21:33)
[2020-01-16] MEDS ORDERED: metFORMIN HCL 500 MG TABLET (FP) PO SCH (22:00)
[2020-01-17] MEDS: CYPROHEPTADINE HCL 4 MG TABLET PO SCH ×3 (06:50→16:53)
[2020-01-17] MEDS: metFORMIN HCL 500 MG TABLET (FP) PO SCH ×2 (07:46→16:51)
[2020-01-17] MEDS: PRENATAL VITAMINS W/ FOLIC ACID TABLET (FP) PO SCH (10:00)
[2020-01-17] MEDS: NICOTINE 14 MG/24 HOURS TOPICAL PATCH TD SCH (10:00)
[2020-01-17] MEDS: ESCITALOPRAM OXALATE 10 MG TABLET PO SCH (10:01)
[2020-01-17] MEDS: metoPROLOL SUCCINATE 25 MG TAB.SR.24H (FP) PO SCH (10:01)
[2020-01-17] MEDS: LISINOPRIL 20 MG TABLET (FP) PO SCH (10:01)
[2020-01-17] MEDS: MAG HYDROX/AL HYDROX/SIMETH 30 ML UNIT-DOSE CUP PO PRN (10:03)
[2020-01-17] MEDS: MELATONIN 5 MG TABLETS PO SCH (21:34)
[2020-01-17] MEDS: CHLORHEXIDINE GLUCONATE 0.12% 15ML CUP MM SCH (21:34)
[2020-01-17] MEDS: QUEtiapine FUMARATE 100 MG TABLET (FP) PO SCH (21:34)
[2020-01-17] MEDS: THIAMINE HCL 100 MG TABLET (FP) PO SCH (21:34)
[2020-01-18] MEDS: CYPROHEPTADINE HCL 4 MG TABLET PO SCH ×3 (06:43→16:29)
[2020-01-18] MEDS: metFORMIN HCL 500 MG TABLET (FP) PO SCH ×2 (07:22→16:29)
[2020-01-18] MEDS: NICOTINE 14 MG/24 HOURS TOPICAL PATCH TD SCH (10:01)
[2020-01-18] MEDS: PRENATAL VITAMINS W/ FOLIC ACID TABLET (FP) PO SCH (10:01)
[2020-01-18] MEDS: CHLORHEXIDINE GLUCONATE 0.12% 15ML CUP MM SCH ×2 (10:01→21:37)
[2020-01-18] MEDS: ESCITALOPRAM OXALATE 10 MG TABLET PO SCH (10:01)
[2020-01-18] MEDS: LISINOPRIL 20 MG TABLET (FP) PO SCH (11:58)
[2020-01-18] MEDS: metoPROLOL SUCCINATE 25 MG TAB.SR.24H (FP) PO SCH (11:58)
--- NOTE | 2020-01-18 14:46 | PN ---
[facility] Progress Note Note: Psychiatric nurse practitioner note: Patient is prescribed seroquel 300mg by outside provider. Patient reports poor sleep. Will d/c Seroquel 100mg and will order Seroquel 150mg HS.
[2020-01-18] MEDS: ONDANSETRON *ODT* 4 MG TABLET SL PRN (15:15)
[2020-01-18] MEDS: hydrOXYzine PAMOATE 25 MG CAPSULE (FP) PO PRN ×2 (15:47→21:39)
[2020-01-18] MEDS: THIAMINE HCL 100 MG TABLET (FP) PO SCH (21:37)
[2020-01-18] MEDS: MELATONIN 5 MG TABLETS PO SCH (21:37)
[2020-01-18] MEDS: QUEtiapine FUMARATE 100 MG TABLET (FP) PO SCH (21:38)
[2020-01-19] MEDS ORDERED: PT OWN MED DRAWER 7, Y5N ONE ×3 (03:50→16:36)
[2020-01-19] MEDS: metFORMIN HCL 500 MG TABLET (FP) PO SCH ×2 (06:10→16:36)
[2020-01-19] MEDS: CYPROHEPTADINE HCL 4 MG TABLET PO SCH ×3 (06:13→16:36)
[2020-01-19] MEDS: ONDANSETRON *ODT* 4 MG TABLET SL PRN ×2 (06:14→12:05)
[2020-01-19] MEDS: hydrOXYzine PAMOATE 25 MG CAPSULE (FP) PO PRN ×4 (06:14→19:13)
[2020-01-19] MEDS: LISINOPRIL 20 MG TABLET (FP) PO SCH (10:01)
[2020-01-19] MEDS: metoPROLOL SUCCINATE 25 MG TAB.SR.24H (FP) PO SCH (10:01)
[2020-01-19] MEDS: CHLORHEXIDINE GLUCONATE 0.12% 15ML CUP MM SCH ×2 (10:01→21:44)
[2020-01-19] MEDS: PRENATAL VITAMINS W/ FOLIC ACID TABLET (FP) PO SCH (10:01)
[2020-01-19] MEDS: IBUPROFEN 400 MG TABLET (FP) PO PRN (10:01)
[2020-01-19] MEDS: ESCITALOPRAM OXALATE 10 MG TABLET PO SCH (10:01)
[2020-01-19] MEDS: NICOTINE 14 MG/24 HOURS TOPICAL PATCH TD SCH (10:03)
[2020-01-19] MEDS: MELATONIN 5 MG TABLETS PO SCH (21:44)
[2020-01-19] MEDS: THIAMINE HCL 100 MG TABLET (FP) PO SCH (21:44)
[2020-01-19] MEDS: QUEtiapine FUMARATE 100 MG TABLET (FP) PO SCH (21:45)
[2020-01-20] MEDS: hydrOXYzine PAMOATE 25 MG CAPSULE (FP) PO PRN ×3 (01:22→22:02)
[2020-01-20] MEDS: CYPROHEPTADINE HCL 4 MG TABLET PO SCH ×3 (06:11→17:00)
[2020-01-20] MEDS: metFORMIN HCL 500 MG TABLET (FP) PO SCH ×2 (06:57→16:59)
[2020-01-20] MEDS: ONDANSETRON *ODT* 4 MG TABLET SL PRN ×2 (07:15→11:56)
[2020-01-20] MEDS: NICOTINE 14 MG/24 HOURS TOPICAL PATCH TD SCH (10:36)
[2020-01-20] MEDS: metoPROLOL SUCCINATE 25 MG TAB.SR.24H (FP) PO SCH (10:36)
[2020-01-20] MEDS: PRENATAL VITAMINS W/ FOLIC ACID TABLET (FP) PO SCH (10:36)
[2020-01-20] MEDS: LISINOPRIL 20 MG TABLET (FP) PO SCH (10:39)
[2020-01-20] MEDS: CHLORHEXIDINE GLUCONATE 0.12% 15ML CUP MM SCH (10:40)
--- NOTE | 2020-01-20 12:10 | PN ---
"[facility] Progress Note Note: Search Terms: citlalli shankar, 1955 Search Date: 01/20/2020 12:09:50 PM The Drug Utilization Report below displays all of the controlled substance prescriptions, if any, that your patient has filled in the last twelve months. The information displayed on this report is compiled from pharmacy submissions to the Department, and accurately reflects the information as submitted by the pharmacies. This report was requested by: Jena Barreto | Reference #: [id number] There are no results for the search terms that you entered."
--- NOTE | 2020-01-20 12:13 | PN ---
[facility] COWS - Scale Resting Pulse: 2= MO 101-120 Sweatin= Chills/Flushing Restless Observation: 1= Difficult to Sit Still Pupil Size: 0= Normal to Room Light Bone or Joint Aches: 1= Mild Discomfort Runny Nose/ Eye Tearin= None GI Upset > 30mins: 0= None Tremor Observation of Outstretched Hands: 0= None Yawning Observation: 0= None Anxiety or Irritability: 2=Irritable/Anxious Goose Flesh Skin: 0=Smooth Skin COWS Score: 7 [facility] Progress Note (SOAP) Subjective: Patient evaluated for suboxone mat for opiod use disorder. Patient c/o anxiety, chills, body aches and opiod cravings. She would like to start suboxone mat, which would be first time ever on treatment. Patient advised to counselor for connection to [facility] prior to starting treatment. She denies fever, chest pain and sob. Objective: 01/20/20 12:12 Vital Signs (72 hours) 01/17/20 01/17/20 01/18/20 15:18 20:35 00:29 Temperature 98.0 F Pulse Rate Respiratory 18 Rate Blood Pressure O2 Sat by Pulse 95 95 Oximetry (%) 01/18/20 01/18/20 01/18/20 03:24 06:35 09:07 Temperature 97.5 F L 97 F L Pulse Rate 80 83 Respiratory 18 18 18 Rate Blood Pressure 125/68 99/74 O2 Sat by Pulse 97 Oximetry (%) 01/18/20 01/18/20 01/18/20 11:56 14:16 20:35 Temperature 97.5 F L Pulse Rate 134 H Respiratory 18 Rate Blood Pressure 130/94 O2 Sat by Pulse 97 98 Oximetry (%) 01/19/20 01/19/20 01/19/20 00:19 03:24 06:11 Temperature 97.0 F L Pulse Rate 121 H Respiratory 18 18 18 Rate Blood Pressure 127/89 O2 Sat by Pulse 97 Oximetry (%) 01/19/20 01/19/20 01/19/20 08:26 14:58 20:35 Temperature 97.3 F L 97.8 F Pulse Rate 127 H Respiratory 18 Rate Blood Pressure 142/92 O2 Sat by Pulse 95 95 Oximetry (%) 01/20/20 01/20/20 01/20/20 00:35 07:09 08:32 Temperature 99.3 F 97.7 F Pulse Rate 100 H 115 H Respiratory 16 20 18 Rate Blood Pressure 100/83 144/96 O2 Sat by Pulse 99 Oximetry (%) Laboratory Tests 01/16/20 01/16/20 01/16/20 07:54 17:00 20:40 POC Glucometer 88 89 103 01/17/20 01/17/20 01/18/20 06:49 16:52 06:42 POC Glucometer 74 96 74 01/18/20 01/19/20 01/19/20 16:30 06:02 16:37 POC Glucometer 151 141 156 01/20/20 06:10 POC Glucometer 146 PE alert and oriented x 3 skin warm and dry appear thin neck supple no jvd ext full rom, amb ad janiya no visible tremors Assessment: 01/20/20 12:15 Opiod dependence protracted withdrawals tachycardia Plan: Patient pending connection, but stated to Tech " I want to inject drugs". Due to risk of AMA, relapse, will start Suboxone 4mg x one dose tachycardia may be related to withdrawal sx, admitting EKG shows NSR repeat HR after medication continue to monitor clinically
[2020-01-20] MEDS ORDERED: BUPRENORPHINE/NALOXONE 4 MG/1 MG FILM PACKET SL ONE (12:30)
[2020-01-20] MEDS ORDERED: PT OWN MED DRAWER 7, Y5N ONE (14:30)
[2020-01-20] MEDS: ESCITALOPRAM OXALATE 10 MG TABLET PO SCH (14:46)
[2020-01-20] MEDS: THIAMINE HCL 100 MG TABLET (FP) PO SCH (22:02)
[2020-01-20] MEDS: MELATONIN 5 MG TABLETS PO SCH (22:02)
[2020-01-20] MEDS: QUEtiapine FUMARATE 100 MG TABLET (FP) PO SCH (22:02)
[2020-01-21] MEDS: CHLORHEXIDINE GLUCONATE 0.12% 15ML CUP MM SCH ×3 (00:28→21:29)
[2020-01-21] MEDS: metFORMIN HCL 500 MG TABLET (FP) PO SCH ×2 (07:02→16:24)
[2020-01-21] MEDS: CYPROHEPTADINE HCL 4 MG TABLET PO SCH ×3 (07:02→16:24)
[2020-01-21] MEDS ORDERED: PT OWN MED DRAWER 7, Y5N ONE ×2 (09:18→18:56)
[2020-01-21] MEDS: LISINOPRIL 20 MG TABLET (FP) PO SCH (09:43)
[2020-01-21] MEDS: PRENATAL VITAMINS W/ FOLIC ACID TABLET (FP) PO SCH (09:43)
[2020-01-21] MEDS: NICOTINE 14 MG/24 HOURS TOPICAL PATCH TD SCH (09:43)
[2020-01-21] MEDS: hydrOXYzine PAMOATE 25 MG CAPSULE (FP) PO PRN (09:43)
[2020-01-21] MEDS: metoPROLOL SUCCINATE 25 MG TAB.SR.24H (FP) PO SCH (09:43)
[2020-01-21] MEDS: ESCITALOPRAM OXALATE 10 MG TABLET PO SCH (09:43)
[2020-01-21] MEDS: IBUPROFEN 400 MG TABLET (FP) PO PRN (09:45)
[2020-01-21] MEDS ORDERED: BUPRENORPHINE/NALOXONE 4 MG/1 MG FILM PACKET SL ONE (10:00)
[2020-01-21] MEDS: ONDANSETRON *ODT* 4 MG TABLET SL PRN (19:58)
[2020-01-21] MEDS: THIAMINE HCL 100 MG TABLET (FP) PO SCH (21:29)
[2020-01-21] MEDS: MELATONIN 5 MG TABLETS PO SCH (21:29)
[2020-01-21] MEDS: QUEtiapine FUMARATE 100 MG TABLET (FP) PO SCH (21:29)
[2020-01-22] MEDS: metFORMIN HCL 500 MG TABLET (FP) PO SCH ×2 (06:25→16:43)
[2020-01-22] MEDS: CYPROHEPTADINE HCL 4 MG TABLET PO SCH ×3 (06:25→16:43)
[2020-01-22] MEDS: ESCITALOPRAM OXALATE 10 MG TABLET PO SCH (11:05)
[2020-01-22] MEDS: PRENATAL VITAMINS W/ FOLIC ACID TABLET (FP) PO SCH (11:05)
[2020-01-22] MEDS: LISINOPRIL 20 MG TABLET (FP) PO SCH ×2 (11:05→11:12)
[2020-01-22] MEDS: NICOTINE 14 MG/24 HOURS TOPICAL PATCH TD SCH (11:06)
[2020-01-22] MEDS: CHLORHEXIDINE GLUCONATE 0.12% 15ML CUP MM SCH ×2 (11:07→21:41)
[2020-01-22] MEDS: metoPROLOL SUCCINATE 25 MG TAB.SR.24H (FP) PO SCH (11:11)
--- NOTE | 2020-01-22 11:20 | PN ---
[facility] COWS - Scale Resting Pulse: 2= [place] 101-120 Sweatin=Flushed/Facial Moisture Restless Observation: 0= Sits Still Pupil Size: 0= Normal to Room Light Bone or Joint Aches: 2= Severe Diffuse Aches Runny Nose/ Eye Tearin= Nasal Congestion GI Upset > 30mins: 1= Stomach Cramp Tremor Observation of Outstretched Hands: 2= Slight Tremor Visible Yawning Observation: 0= None Anxiety or Irritability: 1=Feels Anxious/Irritable Goose Flesh Skin: 0=Smooth Skin COWS Score: 11 [facility] Progress Note (SOAP) Subjective: patient was given one dose of subonxone 4 mg on 01/19, and patient was instructed to follow up with her counselor for aftercare and continued MAT. PMHx of opioid dependance, symptomatic for withdrawal. Objective: P/E; General: appears anxious, HEENTM: normocephalic, PERRLA Neck: supple Resp: unlabored Neuro: no cognitive deficits ABD: +BS 01/22/20 11:20 Assessment: Withdrawal from opiates 01/22/20 11:21 Plan: One time dose of suboxone given again. Patient strongly encouraged to see counselor for aftercare referral for MAT.
[2020-01-22] MEDS ORDERED: BUPRENORPHINE/NALOXONE 4 MG/1 MG FILM PACKET SL ONE (11:30)
[2020-01-22] MEDS ORDERED: PT OWN MED DRAWER 7, Y5N ONE ×2 (16:43→19:04)
[2020-01-22] MEDS: MELATONIN 5 MG TABLETS PO SCH (21:41)
[2020-01-22] MEDS: QUEtiapine FUMARATE 100 MG TABLET (FP) PO SCH (21:41)
[2020-01-22] MEDS: THIAMINE HCL 100 MG TABLET (FP) PO SCH (21:41)
[2020-01-23] MEDS ORDERED: PT OWN MED DRAWER 7, Y5N ONE ×2 (03:30→08:52)
[2020-01-23] MEDS: CYPROHEPTADINE HCL 4 MG TABLET PO SCH ×3 (06:35→17:31)
[2020-01-23] MEDS: metFORMIN HCL 500 MG TABLET (FP) PO SCH ×2 (06:43→17:30)
[2020-01-23] MEDS ORDERED: hydrOXYzine PAMOATE 25 MG CAPSULE (FP) PO PRN (09:51)
[2020-01-23 09:59] VITALS: PULSE 120
[2020-01-23 10:01] VITALS: BP 59/48; TEMP 97.8
--- NOTE | 2020-01-23 10:22 | PN ---
[facility] Progress Note (SOAP) Subjective: Patient with BP of 61/40, HR of 120. (Confirmed, take twice). Patient is not eating, drank glucerna this Am and then threw it up, has eaten a banana and drinking a cup of tea now, but still nauseous. Objective: P/E General: no apparent distress, appears cachectic HEENTM:normocephalic, endentulism Neck: supple Resp: unlabored, breath sounds clear Cardiac: s1 s2 audible, tachycardia ABD+ BS, MSK; weight bearing, steady gait Neuro: no cognitive deficits noted, CN 2-12 intact, 01/23/20 10:18 01/23/20 10:22 Vital Signs Period Temp Pulse Resp BP Sys/Alfaro Pulse Ox Last 24 Hr 97.1 F-98.2 F 79-120 18-18 59-110/40-70 95-97 Laboratory Last Values POC Glucometer 136 UNITS (80-120) 01/23/20 06:35 Assessment: hypotensive 01/23/20 10:23 Plan: Encouraging fluids Report given to [facility] ER, Dr. Gregg accepted patient. Patient to be transferred to [facility] via EMS Continue to monitor until transfer.
[2020-01-23] MEDS: CHLORHEXIDINE GLUCONATE 118 ML MOUTHWASH MM SCH ×2 (10:56→22:05)
[2020-01-23] MEDS: ESCITALOPRAM OXALATE 10 MG TABLET PO SCH (10:56)
[2020-01-23] MEDS: PRENATAL VITAMINS W/ FOLIC ACID TABLET (FP) PO SCH (10:56)
[2020-01-23] MEDS: metoPROLOL SUCCINATE 25 MG TAB.SR.24H (FP) PO SCH (11:01)
[2020-01-23] MEDS: NICOTINE 14 MG/24 HOURS TOPICAL PATCH TD SCH (11:01)
[2020-01-23] MEDS: LISINOPRIL 20 MG TABLET (FP) PO SCH (11:01)
--- NOTE | 2020-01-23 15:31 | PN ---
[facility] Progress Note Note: Counselor secured a Suboxone MAT program for Ms. Saez. She is presently being evaluated at [facility]. Suboxone treatment will be started upon admission.
[2020-01-23] MEDS: QUEtiapine FUMARATE 100 MG TABLET (FP) PO SCH (22:05)
[2020-01-23] MEDS: MELATONIN 5 MG TABLETS PO SCH (22:05)
[2020-01-23] MEDS: THIAMINE HCL 100 MG TABLET (FP) PO SCH (22:06)
== END 2020-01-23 22:07 | disposition short-term general hospital (02) | DRG 895 ==
LOC: YASAS 15:50 → Y3W 15:52
PROVIDERS: ADMIT Allergy & Immunology; ATTEND Internal Medicine
PROC: HZ42ZZZ Group Counseling for Substance Abuse Treatment, Cognitive-Behavioral (ICD-10-PCS; principal; 2020-01-15)
DX: F11.20 Opioid dependence, uncomplicated (principal); F14.20 Cocaine dependence, uncomplicated; F17.210 Nicotine dependence, cigarettes, uncomplicated; F20.9 Schizophrenia, unspecified; F31.9 Bipolar disorder, unspecified; I95.9 Hypotension, unspecified; R00.0 Tachycardia, unspecified; E78.5 Hyperlipidemia, unspecified; I10 Essential (primary) hypertension; E11.9 Type 2 diabetes mellitus without complications; Z79.84 Long term (current) use of oral hypoglycemic drugs
CPT/HCPCS: 82962; Q0162

== ENCOUNTER 2020-01-23 11:58 | Inpatient (IN) | payer OTHER ==
--- NOTE | 2020-01-23 13:04 | PDOC ---
History of Present Illness - General Stated Complaint: Blood Pressure Problem Time Seen by Provider: 01/23/20 12:33 History Source: Patient Exam Limitations: No Limitations - History of Present Illness Initial Comments: 01/23/20 13:04 Lucy Saez is a 64F with PMH HTN and cocaine/heroin use disorder, sent from [facility] for 2 weeks of anorexia and weight loss with hypotension. Patient last used heroin/cocaine 2 weeks ago, one day prior to check in at [facility] detox program. For the last month, patient has reported anorexia and a lot of weight loss, denies any chest pain, SOB, cough, F/C/N/V/D, denies covid-19, denies urinary sx, LUU. Able to eat and drink but does not eat much due to lack of hunger. No bloody stools, no history of anemia, no recent illness. Does report lightheadedness when standing up. Denies any IVDA, only uses drugs nasally. No prior cardiac history. VS taken at [facility] today, hypotensive, which combined with earlier sx prompted ED transfer. NKDA On suboxone for opiate detox Denies alcohol use, smokes 0.5ppd. Past History - Medical History Allergies/Adverse Reactions: Allergies Allergy/AdvReac Type Severity Reaction Status Date / Time No Known Allergies Allergy Verified 01/10/20 13:13 Home Medications: Ambulatory Orders Buspirone HCl [Buspar -] 15 mg PO BID 01/10/20 Escitalopram Oxalate [Lexapro -] 10 mg PO DAILY 01/10/20 Quetiapine Fumarate [Seroquel -] 300 mg PO HS 01/10/20 Lisinopril 20 mg PO DAILY 01/23/20 Lovastatin [Altoprev] 20 mg PO DAILY 01/23/20 Metformin HCl [Glucophage] 500 mg PO BID 01/23/20 Metoprolol Succinate 25 mg PO DAILY 01/23/20 Trazodone HCl 150 mg PO HS 01/23/20 Anemia: No Asthma: No Cancer: No Cardiac Disorders: No CVA: No COPD: No CHF: No Dementia: No Diabetes: Yes GI Disorders: No Disorders: No HTN: Yes (ON MEDS) Hypercholesterolemia: Yes Kidney Stones: No Liver Disease: No Seizures: Yes (2005- DRUG RLT) Thyroid Disease: No - Surgical History Abdominal Surgery: No Appendectomy: No Cardiac Surgery: No Cholecystectomy: No Lung Surgery: No Neurologic Surgery: No Orthopedic Surgery: No - Immunization History Immunization Up to Date: Yes - Psycho-Social/Smoking History Smoking History: Former smoker Have you smoked in the past 12 months: Yes Number of Cigarettes Smoked Daily: 10 Information on smoking cessation initiated: No 'Breaking Loose' booklet given: 01/10/20 - Substance Abuse Hx (Audit-C & DAST Scrn) How often the patient has a drink containing alcohol: 4 0r more times/wk Number of drinks the patient has on a typical day: 7 to 9 How often the patient has six or more drinks on one occasion: Daily or almost d aily Score: In Men: 4 or > Positive; In Women: 3 or > Positive: 11 Screen Result (Pos requires Nsg. Audit-10AR): Positive In the last yr the pt used illegal drug/Rx for NonMed reason: Yes Score: Yes response is considered Positive: 1 Screen Result (Positive result requires Nsg. DAST-10): Positive Review of Systems - Review of Systems Able to Perform ROS?: Yes Constitutional: Yes: Loss of Appetite, Weakness, Unintentional Wgt. Loss. No: Fever HEENTM: No: Symptoms Reported Respiratory: No: Cough, Shortness of Breath, Stridor, Wheezing, Hemoptysis Cardiac (ROS): No: Chest Pain, Edema, Irregular Heart Rate, Lightheadedness, Palpitations, Syncope, Chest Tightness ABD/GI: Yes: Poor Appetite, Poor Fluid Intake. No: See HPI, Diarrhea, Nausea, Vomiting : No: Symptoms Reported Musculoskeletal: No: Symptoms Reported Integumentary: No: Symptoms Reported Neurological: No: Headache, Numbness, Paresthesia, Unsteady Gait Endocrine: No: Symptoms Reported Hematologic/Lymphatic: No: Symptoms Reported *Physical Exam - Vital Signs Last Vital Signs Temp Pulse Resp BP Pulse Ox 98.6 F 100 H 18 91/67 96 01/23/20 11:58 01/23/20 11:58 01/23/20 11:58 01/23/20 11:58 01/23/20 11:58 - Physical Exam General Appearance: Yes: Nourished, Appropriately Dressed, Cachetic, Thin, Other (resting comfortably in bed, appears gaunt). No: Apparent Distress HEENT: positive: EOMI, KIARA, Normal ENT Inspection, Normal Voice, Symmetrical, Pharynx Normal, Hearing Grossly Normal. negative: Pale Conjunctivae, Pharyngeal Erythema, Tonsillar Exudate, Tonsillar Erythema Neck: positive: Trachea midline, Normal Thyroid, Rigid, Supple. negative: Tender, Lymphadenopathy (R), Lymphadenopathy (L) Respiratory/Chest: positive: Lungs Clear, Normal Breath Sounds. negative: Chest Tender, Respiratory Distress, Accessory Muscle Use, Rapid RR, Crackles, Rales, Stridor, Wheezing Cardiovascular: positive: Regular Rhythm, Regular Rate Gastrointestinal/Abdominal: positive: Normal Bowel Sounds, Flat, Soft. negative: Tender, Organomegaly, Pulsatile Mass, Distended, Guarding, Rebound, Hernia Musculoskeletal: positive: Normal Inspection. negative: CVA Tenderness, CVA Tenderness (R), CVA Tenderness (L) Extremity: positive: Normal Capillary Refill, Normal Inspection, Normal Range of Motion, Pelvis Stable. negative: Tender, Pedal Edema, Swelling, Calf T enderness Integumentary: positive: Normal Color, Dry, Warm Neurologic: positive: Fully Oriented, Alert, Normal Mood/Affect, Normal Response, Motor Strength 5/5, Other (gait normal). negative: Sensory Deficit ED Treatment Course - LABORATORY CBC & Chemistry Diagram: 01/24/20 07:12 01/24/20 07:12 Medical Decision Making - Medical Decision Making 01/24/20 03:04 Patient has history of HTN and cocaine/heroin use presenting with anorexia and hypotension. No orthostatic hypotension, BP stable at 80/50 in all positions without HR changes, but patient braces herself when sitting up or standing indicating symptomatic state. Evaluating for hypothyroidism, infection, cardiac disease, malnutrition, maliganancy. CBC, CMP, lipase. CP, UA/UC, ECG, CXR. Labs notable for: - Hgb 7.9 - Na 132 - Cr 2.9 - Phos 1.1 - trop WNL - UA WNL CXR cardiomegaly without acute changes. Phos repletion ordered Cr elevation concerning for renal pathology, unclear etiology No evidence PNA or UTI Unclear source of anemia ECG shows NSR with HR 83 and QTc 440, no EMILY/D. Plan to admit to for new onset MAVIS, anemia of unknown origin, and FTT Senior resident Dr. Carpio signed off to medicine team, accepted for admission. Discharge - Discharge Information Problems reviewed: Yes Clinical Impression/Diagnosis: MAVIS (acute kidney injury) Condition: Guarded - Follow up/Referral - Patient Discharge Instructions - Post Discharge Activity
[2020-01-23] MEDS ORDERED: SODIUM CHLORIDE 0.9% 500 ML INFUS.BAG IV ONE (14:33)
[2020-01-23 14:47] LABS: BASO % 0.6 % (0-2.0); EOS % 0.1 % (0-4.5); HEMATOCRIT 30.8 % (32.4-45.2); HEMOGLOBIN 9.7 GM/dL (10.7-15.3); LYMPH % 42.8 % (8-40); MCH 27.2 pg (25.7-33.7); MCHC 31.6 g/dl (32.0-36.0); MEAN PLT VOLUME 7.4 fl (7.5-11.1); MONO % 8.9 % (3.8-10.2); NEUT % 47.6 % (42.8-82.8); PLATELET COUNT 413 K/MM3 (134-434); RBC 3.58 M/mm3 (3.60-5.2); RDW 16.2 % (11.6-15.6); WHITE BLOOD COUNT 7.6 K/mm3 (4.0-10.0)
[2020-01-23 14:52] LABS: INR 0.87 (0.83-1.09); PROTHROMBIN TIME (PATIENT) 10.3 SEC (9.7-13.0)
[2020-01-23 14:55] LABS: ACTIVATED PTT 28.1 SECONDS (25.2-36.5)
[2020-01-23 15:17] LABS: ALBUMIN 2.7 g/dl (3.4-5.0); ALK PHOS 86 U/L (45-117); ANION GAP 4 MMOL/L (8-16); BILIRUBIN,TOTAL 0.3 mg/dL (0.2-1); CHLORIDE 94 mmol/L (98-107); CO2 34 mmol/L (21-32); CREATININE 2.9 mg/dL (0.55-1.3); GLUCOSE,RANDOM 81 mg/dL (74-106); POTASSIUM 4.6 mmol/L (3.5-5.1); SGOT/AST 14 U/L (15-37); SGPT/ALT 12 U/L (13-61); SODIUM 132 mmol/L (136-145); TOT PROT 6.2 g/dl (6.4-8.2)
[2020-01-23 15:23] LABS: BLOOD UREA NITROGEN 57.9 mg/dL (7-18)
[2020-01-23 15:25] LABS: PHOSPHOROUS 1.1 mg/dL (2.5-4.9)
--- NOTE | 2020-01-23 15:33 | PDOC ---
*Physical Exam - Vital Signs Last Vital Signs Temp Pulse Resp BP Pulse Ox 98.6 F 100 H 18 91/67 96 01/23/20 11:58 01/23/20 11:58 01/23/20 11:58 01/23/20 11:58 01/23/20 11:58 ED Treatment Course - LABORATORY CBC & Chemistry Diagram: 01/23/20 14:15 01/23/20 14:15 - ADDITIONAL ORDERS Additional order review: Laboratory Results 01/23/20 01/23/20 14:15 14:15 PT with INR 10.30 INR 0.87 PTT (Actin FS) 28.1 Sodium 132 L Potassium 4.6 Chloride 94 L Carbon Dioxide 34 H Anion Gap 4 L BUN 57.9 H Creatinine 2.9 H Est GFR (CKD-EPI)AfAm 19.30 Est GFR (CKD-EPI)NonAf 16.65 Random Glucose 81 Calcium 9.0 Phosphorus 1.1 L* Magnesium 3.0 H Total Bilirubin 0.3 AST 14 L ALT 12 L Alkaline Phosphatase 86 Creatine Kinase 25 L Troponin I < 0.02 Total Protein 6.2 L Albumin 2.7 L 01/23/20 14:15 RBC 3.58 L MCV 86.0 MCHC 31.6 L RDW 16.2 H MPV 7.4 L Neutrophils % 47.6 Lymphocytes % 42.8 H Monocytes % 8.9 Eosinophils % 0.1 Basophils % 0.6 - Medications Given in the ED: ED Medications Discontinued Medications Generic Name Dose Route Start Last Admin Trade Name Freq PRN Reason Stop Dose Admin Sodium Chloride 1,000 ml 01/23/20 14:33 01/23/20 14:38 Normal Saline - IV 01/23/20 14:34 1,000 ml ONCE ONE Administration Medical Decision Making - Medical Decision Making Discussed case with Dr. Ennis who accepted patient for admission under Dr. Cardoza Admission order placed 01/23/20 15:33 Discharge - Discharge Information Problems reviewed: Yes Clinical Impression/Diagnosis: MAVIS (acute kidney injury) Condition: Guarded - Admission Yes - Follow up/Referral Referrals: ON STAFF,NOT [Primary Care Provider] - - Patient Discharge Instructions - Post Discharge Activity
--- NOTE | 2020-01-23 16:37 | PDOC ---
Documentation entered by Yari Sotomayor SCRIBE, acting as scribe for Ofe Curran MD. Ofe Curran MD: This documentation has been prepared by the Juan J love Nirvannie, SCRIBE, under my direction and personally reviewed by me in its entirety. I confirm that the documentation accurately reflects all work, treatment, procedures, and medical decision making performed by me. Attending Attestation - Resident Resident Name: JuanaIan - ED Attending Attestation I have performed the following: I have examined & evaluated the patient, The case was reviewed & discussed with the resident, I agree w/resident's findings & plan, Exceptions are as noted - HPI HPI: 01/23/20 14:22 The patient is a 64 year old female with a significant past medical history of polysubstance abuse (heroin: 2bags daily from age 42 hx OD 6 mo ago, last used yesterday; cocaine 2 bags daily from age 22 last used yesterday), HTN, HLD, DM, schizophrenia, bipolar disorder who presents to the ED with low blood pressure. As per [facility], the patient's blood pressure was found to be BP of 61/40. Allergies: NKDA - Physicial Exam PE: 01/23/20 16:05 Agree with resident exam. Patient is alert and oriented and in no acute distress. Appears cachectic. Lungs are clear. Abdomen is soft, non distended, non tender, wthout guarding or rebound. 01/23/20 16:07 - Medical Decision Making 01/23/20 16:08 Pt presents the ED after sent in by [facility] for hypotension. Found to be slightly hypotensive in the ED. Labs show acute renal failure. Will treat with IV hydration and admit to medicine for continued monitoring. Discharge - Discharge Information Problems reviewed: Yes Clinical Impression/Diagnosis: MAVIS (acute kidney injury) Condition: Improved - Follow up/Referral - Patient Discharge Instructions - Post Discharge Activity
[2020-01-23] MEDS: SODIUM CHLORIDE 1,000 ML IV SCH ×2 (17:01→22:05)
--- NOTE | 2020-01-23 17:05 | HP ---
CHIEF COMPLAINT: hypotension PCP: Unknown HISTORY OF PRESENT ILLNESS: 64F HTN, multiple psychiatric problems, cocaine/heroine abuse presents in the ED after being setting from [facility] for hypotension. Per ED note, pt was found to be hypotensive at 61/40. Upon arrival in the ED, BP was 91/67. Pt admits poor PO intake over the past 2 weeks, as well as 10 lb weight loss over the same time frame. Denies any ribeiro/d, chest pain, sob, abd pain, urinary/bowel symptoms. She has significant substance abuse hx including heroine (last used 2.5 weeks ago) and cocaine (last used 2.5 weeks ago). She also smokes 1/2 PPD since she was 14 years old. Per EMR, pt was admitted at [facility] for heroine detox receiving Suboxone. ER course was notable for: (1) BP 90/58, Phos 1.1, Cr 2.9, trop neg x1 (2) IV NS bolus, Phos-Nak packet given (3) Recent Travel: Denies PAST MEDICAL HISTORY: As per HPI PAST SURGICAL HISTORY: Tubal Ligation Social History: Smokin/2 PPD since 14 years Alcohol: Denies Drugs: Heroin: 2 bags daily, started at age 42, she did overdose 6 months ago,doesn't have a narcan kit Cocaine: 2 bags daily, started using at age 22 Lives with daughter and granddaughter in [place] Allergies No Known Allergies Allergy (Verified 01/10/20 13:13) HOME MEDICATIONS: Home Medications Medication Instructions Recorded Buspirone HCl [Buspar -] 15 mg PO BID 01/10/20 Escitalopram Oxalate [Lexapro -] 10 mg PO DAILY 01/10/20 Lisinopril [Prinivil] 20 mg PO DAILY 01/10/20 Lovastatin 20 mg PO HS 01/10/20 Metoprolol Succinate [Toprol Xl] 25 mg PO DAILY 01/10/20 Quetiapine Fumarate [Seroquel -] 300 mg PO HS 01/10/20 traZODone HCL [Trazodone HCl] 150 mg PO HS 01/10/20 metFORMIN HCL [Metformin HCl] 500 mg PO BID 01/15/20 REVIEW OF SYSTEMS As per HPI PHYSICAL EXAMINATION Vital Signs - 24 hr 01/23/20 11:58 Temperature 98.6 F Pulse Rate 100 H Respiratory 18 Rate Blood Pressure 91/67 O2 Sat by Pulse 96 Oximetry (%) GENERAL: NAD. Thin-appearing female, cachectic. HEENT: AT/NC. EOMI. Dry mucus membranes. NECK: Normal range of motion, supple without lymphadenopathy, JVD, or masses. LUNGS: CTA B/L. No wheezes noted. HEART: RRR, normal S1, S2. No murmurs noted. ABDOMEN: Soft, NT/ND. Hypoactive BS. MUSCULOSKELETAL: Normal range of motion at all joints. No bony deformities or tenderness. No CVA tenderness. EXTREMITIES: No peripheral edema noted. NEUROLOGICAL: Cranial nerves II-XII intact. Normal speech. PSYCHIATRIC: Cooperative. Good eye contact. Appropriate mood and affect. SKIN: Warm, dry, normal turgor, no rashes or lesions noted, normal capillary refill. Laboratory Results - last 24 hr 01/23/20 01/23/20 01/23/20 14:15 14:15 14:15 WBC 7.6 RBC 3.58 L Hgb 9.7 L Hct 30.8 L MCV 86.0 MCH 27.2 MCHC 31.6 L RDW 16.2 H Plt Count 413 MPV 7.4 L Absolute Neuts (auto) 3.6 Neutrophils % 47.6 Lymphocytes % 42.8 H Monocytes % 8.9 Eosinophils % 0.1 Basophils % 0.6 Nucleated RBC % 0 PT with INR 10.30 INR 0.87 PTT (Actin FS) 28.1 Sodium 132 L Potassium 4.6 Chloride 94 L Carbon Dioxide 34 H Anion Gap 4 L BUN 57.9 H Creatinine 2.9 H Est GFR (CKD-EPI)AfAm 19.30 Est GFR (CKD-EPI)NonAf 16.65 Random Glucose 81 Calcium 9.0 Phosphorus 1.1 L* Magnesium 3.0 H Total Bilirubin 0.3 AST 14 L ALT 12 L Alkaline Phosphatase 86 Creatine Kinase 25 L Troponin I < 0.02 Total Protein 6.2 L Albumin 2.7 L ASSESSMENT/PLAN: 64F HTN, multiple psychiatric problems, cocaine/heroine abuse presents in the ED after being setting from [facility] for hypotension and MAVIS. #MAVIS; Cr 2.9. Likely prerenal injury in setting of dehydration -1L NS x1 given in ED -repeat BMP in AM -Renal U/s ordered -Nephro consulted #Hypotension; likely 2/2 poor oral intake. Currently asymptomatic. -Initial BP 61/40 --> 90/58 -1L NS given; cont with NS @ 100 -Routine BP checks -Monitor for symptoms #Substance Abuse Disorder; Cocaine/Heroine -Currently on Suboxone at -Detox consulted to cont current Suboxone dose #Hypophosphatemia; Phos 1.1. Phos-Nak packet given. Trend Phos. #Weight Loss; 10lb unintentional weight loss over ~2 weeks. ?etiology. -[employer] consult #DM; Hold all oral DM meds. BGM/ISS ACHS. #Hx of Schizophrenia; Cont home meds: Buspirone 15 BID, Lexapro 10, Seroquel 150 (on 300 mg at home, but will cont dose recommended by psych at [facility]) #Prophylaxis DVT: SQH #FEN -IV hydration -recheck lytes in AM (Phos) -Regular diet Dispo -admit to med-surg Visit type - Emergency Visit Emergency Visit: Yes ED Registration Date: 01/23/20 Care time: The patient presented to the Emergency Department on the above date a nd was hospitalized for further evaluation of their emergent condition. - New Patient This patient is new to me today: Yes Date on this admission: 01/23/20 - Critical Care Critical Care patient: No ATTENDING PHYSICIAN STATEMENT I saw and evaluated the patient. I reviewed the resident's note and discussed the case with the resident. I agree with the resident's findings and plan as documented. SUBJECTIVE: OBJECTIVE: ASSESSMENT AND PLAN:
--- NOTE | 2020-01-23 18:47 | PN ---
Teaching Attending Note Name of Resident: Oly Ennis ATTENDING PHYSICIAN STATEMENT I saw and evaluated the patient. I reviewed the resident's note and discussed the case with the resident. I agree with the resident's findings and plan as documented. SUBJECTIVE:Chief complaint low blood pressure 64F HTN, multiple psychiatric problems, cocaine/heroine abuse presents in the ED after being setting from [facility] for hypotension. Per ED note, pt was found to be hypotensive at 61/40. Upon arrival in the ED, BP was 91/67. Pt admits poor PO intake over the past 2 weeks, as well as 10 lb weight loss over the same time frame. Denies any ribeiro/d, chest pain, sob, abd pain, urinary/bowel symptoms. She has significant substance abuse hx including heroine (last used 2.5 weeks ago) and cocaine (last used 2.5 weeks ago). She also smokes 1/2 PPD since she was 14 years old. Per EMR, pt was admitted at [facility] for heroine detox receiving Suboxone. OBJECTIVE: Vital Signs Period Temp Pulse Resp BP Sys/Alfaro Pulse Ox Last 24 Hr 98.6 F-99 F 86-100 18-18 90-91/58-67 96-98 GENERAL: NAD. Thin-appearing female, cachectic. HEENT: AT/NC. EOMI. Dry mucus membranes. NECK: Normal range of motion, supple without lymphadenopathy, JVD, or masses. LUNGS: CTA B/L. No wheezes noted. HEART: RRR, normal S1, S2. No murmurs noted. ABDOMEN: Soft, NT/ND. Hypoactive BS. MUSCULOSKELETAL: Normal range of motion at all joints. No bony deformities or tenderness. No CVA tenderness. EXTREMITIES: No peripheral edema noted. NEUROLOGICAL: Cranial nerves II-XII intact. Normal speech. PSYCHIATRIC: Cooperative. Good eye contact. Appropriate mood and affect. SKIN: Warm, dry, normal turgor, no rashes or lesions noted, normal capillary refill. ASSESSMENT AND PLAN: 64F HTN, multiple psychiatric problems, cocaine/heroine abuse presents in the ED after being setting from [facility] for hypotension and MAVIS Acute renal insufficiency Hypotension Polysubstance abuse Hypophosphatemia Hypertension Weight loss because of polysubstance abuse Plan Hold her blood pressure medication start IV fluids normal saline at 100 cc an hour Hold blood pressure medications Continue home medication rest of the uncontrolled sugar.
[2020-01-23 18:55] LABS: URINE APPEARANCE CLEAR; URINE COLOR DK YELLOW
[2020-01-23 18:56] LABS: PH,URINE 5.5 (5.0-8.0); URINE BILIRUBIN NEGATIVE (NEGATIVE); URINE GLUCOSE (UA) NEGATIVE (NEGATIVE); URINE KETONE TRACE (NEGATIVE); URINE LEUK ESTERASE TRACE (NEGATIVE); URINE NITRITE NEGATIVE (NEGATIVE); URINE PROTEIN 30 (NEGATIVE)
[2020-01-23] MEDS ORDERED: QUEtiapine FUMARATE 25 MG TABLET ONE (21:57)
[2020-01-23] MEDS ORDERED: INSULIN (NOVOLOG) ASPART 100 UNITS/ML 10ML VIAL ONE (21:57)
[2020-01-23] MEDS ORDERED: QUEtiapine FUMARATE 100 MG TABLET (FP) PO SCH (22:00)
[2020-01-23] MEDS: INSULIN SLIDING SCALE (NOVOLOG) 1 VIAL SQ SCH (22:01)
[2020-01-23] MEDS: HEPARIN NA (PORCINE) 5,000 UNITS/ML 1ML VIAL SQ SCH (22:02)
[2020-01-23] MEDS: NAPH,MB-DB/K PH,MBDB POWDER PACKET PO SCH (22:02)
[2020-01-23] MEDS: busPIRone HCL 5 MG TABLET PO SCH (22:03)
[2020-01-23] MEDS: QUEtiapine FUMARATE 50 MG TABLET PO SCH (22:04)
[2020-01-23 23:34] VITALS: BMI 14.4
[2020-01-24] MEDS: HEPARIN NA (PORCINE) 5,000 UNITS/ML 1ML VIAL SQ SCH ×3 (05:33→22:05)
[2020-01-24] MEDS: INSULIN SLIDING SCALE (NOVOLOG) 1 VIAL SQ SCH ×4 (06:06→22:07)
[2020-01-24] MEDS ORDERED: INSULIN (NOVOLOG) ASPART 100 UNITS/ML 10ML VIAL ONE (06:32)
[2020-01-24 07:57] LABS: BASO % 0.7 % (0-2.0); EOS % 0.2 % (0-4.5); HEMATOCRIT 25.1 % (32.4-45.2); LYMPH % 49.7 % (8-40); MCH 27.6 pg (25.7-33.7); MCHC 31.8 g/dl (32.0-36.0); MEAN CELL VOLUME 86.7 fl (80-96); MEAN PLT VOLUME 7.2 fl (7.5-11.1); MONO % 9.9 % (3.8-10.2); NEUT % 39.5 % (42.8-82.8); PLATELET COUNT 295 K/MM3 (134-434); WHITE BLOOD COUNT 5.2 K/mm3 (4.0-10.0)
[2020-01-24 08:18] LABS: CALCIUM 7.8 mg/dL (8.5-10.1); MAGNESIUM 2.3 mg/dL (1.8-2.4); POTASSIUM 4.2 mmol/L (3.5-5.1)
[2020-01-24 08:32] LABS: BILIRUBIN,TOTAL 0.3 mg/dL (0.2-1); CREATININE 1.1 mg/dL (0.55-1.3); PHOSPHOROUS 1.6 mg/dL (2.5-4.9); TOT PROT 4.7 g/dl (6.4-8.2)
[2020-01-24 08:34] LABS: BLOOD UREA NITROGEN 32.1 mg/dL (7-18)
[2020-01-24] MEDS ORDERED: POTASSIUM PHOSPHATE 15 MM in SODIUM CHLORIDE 250 ML IVPB ONE (08:39)
[2020-01-24] MEDS: SODIUM CHLORIDE 1,000 ML IV SCH ×3 (08:50→22:16)
[2020-01-24] MEDS ORDERED: PT OWN MED DRAWER 7, Y5N ONE ×3 (09:25→21:53)
[2020-01-24] MEDS: busPIRone HCL 5 MG TABLET PO SCH ×2 (09:28→22:05)
[2020-01-24] MEDS: ESCITALOPRAM OXALATE 10 MG TABLET PO SCH (09:28)
[2020-01-24] MEDS: NAPH,MB-DB/K PH,MBDB POWDER PACKET PO SCH ×2 (09:29→22:05)
--- NOTE | 2020-01-24 10:47 | CONSULT ---
Consult Consult Specialty:: Nephrology Reason for Consultation:: MAVIS - History of Present Illness Chief Complaint: sent in for hypotension History of Present Illness: Pt is a 64 year old female with pmhx of cocain use, heroine use, htn who was sent in from [facility] for hypotension. She was found to have a bp of 61/40 and 91/67. She was found to be in acute renal failure and I was called to evaluate her. She says that she feels better today. She denies pain. She denies dysuria or hematuria. SHe denies cough. She denies fevers or chills. - Past Medical History Cardio/Vascular: Yes: HTN, Hyperlipdemia Psych: Yes: Anxiety, Bipolar, Schizophrenia Endocrine: Yes: Diabetes Mellitus - Past Surgical History Past Surgical History: Yes: - Alcohol/Substance Use Hx Alcohol Use: No History of Substance Use: reports: Cocaine, Heroin Date of Last Use: 01/09/20 - Smoking History Smoking history: Former smoker Have you smoked in the past 12 months: Yes Aproximately how many cigarettes per day: 10 - Social History ADL: Independent Occupation: retired, on SSI History of Recent Travel: No Home Medications - Allergies Allergies/Adverse Reactions: Allergies Allergy/AdvReac Type Severity Reaction Status Date / Time No Known Allergies Allergy Verified 01/10/20 13:13 - Home Medications Home Medications: Ambulatory Orders Buspirone HCl [Buspar -] 15 mg PO BID 01/10/20 Escitalopram Oxalate [Lexapro -] 10 mg PO DAILY 01/10/20 Quetiapine Fumarate [Seroquel -] 300 mg PO HS 01/10/20 Lisinopril 20 mg PO DAILY 01/23/20 Lovastatin [Altoprev] 20 mg PO DAILY 01/23/20 Metformin HCl [Glucophage] 500 mg PO BID 01/23/20 Metoprolol Succinate 25 mg PO DAILY 01/23/20 Trazodone HCl 150 mg PO HS 01/23/20 Family Medical History Family History: Denies Review of Systems - Review of Systems Constitutional: reports: Malaise Eyes: reports: No Symptoms HENT: reports: No Symptoms Neck: reports: No Symptoms Cardiovascular: reports: No Symptoms Respiratory: reports: No Symptoms Gastrointestinal: reports: No Symptoms Genitourinary: reports: No Symptoms Musculoskeletal: reports: No Symptoms Integumentary: reports: No Symptoms Neurological: reports: No Symptoms Endocrine: reports: No Symptoms Hematology/Lymphatic: reports: No Symptoms Psychiatric: reports: No Symptoms Physical Exam Vital Signs: Vital Signs Temperature 98.8 F 01/24/20 10:00 Pulse Rate 92 H 01/24/20 10:00 Respiratory Rate 18 01/24/20 10:00 Blood Pressure 104/58 L 01/24/20 10:00 O2 Sat by Pulse Oximetry (%) 96 01/23/20 20:55 Constitutional: Yes: Calm Eyes: Yes: Conjunctiva Clear HENT: Yes: Atraumatic Neck: Yes: Supple Cardiovascular: Yes: S1, S2 Respiratory: Yes: CTA Bilaterally Gastrointestinal: Yes: Soft Musculoskeletal: Yes: WNL Edema: No Neurological: Yes: Oriented Psychiatric: Yes: Oriented Labs: CBC, BMP 01/24/20 07:12 01/24/20 07:12 Imaging - Results Ultrasound: Report Reviewed Problem List - Problems (1) MAVIS (acute kidney injury) Code(s): N17.9 - ACUTE KIDNEY FAILURE, UNSPECIFIED (2) Cocaine use disorder Code(s): F14.10 - COCAINE ABUSE, UNCOMPLICATED (3) Opioid dependence Code(s): F11.20 - OPIOID DEPENDENCE, UNCOMPLICATED Assessment/Plan Current Medications Generic Name Dose Route Start Last Admin Trade Name Saw PRN Reason Stop Dose Admin Buspirone HCl 15 mg 01/23/20 22:00 01/24/20 09:28 Buspar - PO 15 mg BID PARESH Administration Escitalopram Oxalate 10 mg 01/24/20 10:00 01/24/20 09:28 Lexapro - PO 10 mg DAILY PARESH Administration Heparin Sodium (Porcine) 5,000 unit 01/23/20 22:00 01/24/20 05:33 Heparin - SQ 5,000 unit TID PARESH Administration Sodium Chloride 1,000 mls @ 100 mls/hr 01/23/20 15:45 01/24/20 08:50 Normal Saline - IV 100 mls/hr ASDIR PARESH Administration Potassium Phosphate 15 mm/ 255 mls @ 62.5 mls/hr 01/24/20 08:39 Sodium Chloride IVPB 01/24/20 12:43 ONCE ONE Insulin Aspart 1 vial 01/23/20 22:00 01/24/20 06:06 Novolog Vial Sliding Scale - SQ Not Given ACHS PARESH Protocol Potassium Phos/Sodium Phos 1 packet 01/23/20 22:00 01/24/20 09:29 Phos-Nak Packet - PO 1 packet BID PARESH Administration Quetiapine Fumarate 150 mg 01/23/20 22:00 01/23/20 22:04 Seroquel - PO 150 mg HS PARESH Administration Laboratory Tests 01/23/20 01/23/20 01/23/20 14:15 17:00 17:00 Sodium 132 L Potassium 4.6 BUN 57.9 H Creatinine 2.9 H Phosphorus Magnesium Urine Protein 30 Urine Glucose (UA) Negative Urine Blood Negative COVID-19 (DANAY) Pending 01/24/20 07:12 Sodium Potassium BUN 32.1 H Creatinine 1.1 Phosphorus 1.6 L Magnesium 2.3 Urine Protein Urine Glucose (UA) Urine Blood COVID-19 (DANAY) Impression 1. MAVIS 2. possible hydro 3. hypophos 4. hypotnsion 5. multi drug abuse Plan - repeat labs in am - replace phos - hold be meds - monitor bp - cont fluids for now - avoid nsaids - cont fluids - will follow PRN
--- NOTE | 2020-01-24 10:49 | EKG ---
Test Reason : Blood Pressure : / mmHG Vent. Rate : 093 BPM Atrial Rate : 093 BPM P-R Int : 118 ms QRS Dur : 076 ms QT Int : 354 ms P-R-T Axes : 078 079 061 degrees QTc Int : 440 ms NORMAL SINUS RHYTHM BIATRIAL ENLARGEMENT ABNORMAL ECG WHEN COMPARED WITH ECG OF 10-JAN-2020 12:31, QT HAS LENGTHENED Confirmed by ANNE MUNSON MD ([id number]) on 01/24/2020 10:48:34 AM Referred By: Confirmed By:ANNE MUNSON MD
--- NOTE | 2020-01-24 13:54 | CONSULT ---
Consult Detox [facility] Reason for Current Admission/Consult: Pt with a hx of heroin use was transferred to [facility] with Hypotension, needs follow up. - History History of Present Illness: 64 yo woman who recently completed a methadone detox at [facility] and was transferred to our Rehab on 01/14. She was started on Suboxone 3 days ago, first time. Yesterday, hypotensive, transferred to [facility]. Substance use hx: Smokin/2 PPD since 14 years Alcohol: Denies Drugs: Heroin: 2 bags daily, started at age 42, she did overdose 6 months ago,doesn't have a narcan kit Cocaine: 2 bags daily, started using at age 22 - History Source History Provided By: Medical Record - Alcohol/Substance Use Hx Alcohol Use: No Hx Substance Use: Yes - Past Medical History Cardio/Vascular: Yes: HTN, Hyperlipdemia Psych: Yes: Anxiety, Bipolar, Schizophrenia Endocrine: Yes: Diabetes Mellitus - Past Surgical History Past Surgical History: Yes: Assessment Plan - Diagnosis (1) Opioid dependence Status: Acute - Plan Plan: Will continue pt on Suboxone 4 mg daily Please monitor pt withdrawal sx with at least daily COWS score Pt under eval by Renal service at this time - Medication Detox Regimen/Protocol: Suboxone
[2020-01-24] MEDS: BUPRENORPHINE/NALOXONE 2 MG/0.5 MG FILM PACKET SL SCH (15:16)
--- NOTE | 2020-01-24 15:52 | PN ---
Progress Note (short form) - Note Progress Note: SUBJECTIVE: Feeling well, no complaints. No headache/dizziness/visual disturbance/nausea/vomiting. No fever/chills. No cough/sputum. No dysuria. OBJECTIVE: Afebrile, Hemodynamically Stable. Last Vital Signs Temp Pulse Resp BP Pulse Ox 99 F 91 H 18 157/76 96 01/24/20 14:00 01/24/20 14:00 01/24/20 14:00 01/24/20 14:00 01/23/20 20:55 HEENT - Atraumatic, Normocephalic. Heart - S1, S2, RRR Lungs - clear to auscultation Abdomen - soft, non-tender. Bowel Sounds normal. Extremities - no edema, no calf tenderness. Neuro = AAO x 3. Tone/Power normal. Laboratory Results - last 24 hr 01/23/20 01/23/20 01/24/20 17:00 22:01 06:04 WBC RBC Hgb Hct MCV MCH MCHC RDW Plt Count MPV Absolute Neuts (auto) Neutrophils % Lymphocytes % Monocytes % Eosinophils % Basophils % Nucleated RBC % Sodium Potassium Chloride Carbon Dioxide Anion Gap BUN Creatinine Est GFR (CKD-EPI)AfAm Est GFR (CKD-EPI)NonAf POC Glucometer 104 85 Random Glucose Calcium Phosphorus Magnesium Iron TIBC Iron Saturation Unsaturated IBC Ferritin Total Bilirubin AST ALT Alkaline Phosphatase Total Protein Albumin Vitamin B12 Serum Folate TSH Urine Color Dk yellow Urine Appearance Clear Urine pH 5.5 Ur Specific [place] 1.021 Urine Protein 30 Urine Glucose (UA) Negative Urine Ketones Trace H Urine Blood Negative Urine Nitrite Negative Urine Bilirubin Negative Urine Urobilinogen 1.0 Ur Leukocyte Esterase Trace 01/24/20 01/24/20 01/24/20 07:12 07:12 11:09 WBC 5.2 RBC 2.90 L Hgb 8.0 L Hct 25.1 L D MCV 86.7 MCH 27.6 MCHC 31.8 L RDW 16.0 H Plt Count 295 D MPV 7.2 L Absolute Neuts (auto) 2.0 Neutrophils % 39.5 L Lymphocytes % 49.7 H Monocytes % 9.9 Eosinophils % 0.2 D Basophils % 0.7 Nucleated RBC % 0 Sodium 140 Potassium 4.2 Chloride 107 Carbon Dioxide 28 Anion Gap 6 L BUN 32.1 H Creatinine 1.1 Est GFR (CKD-EPI)AfAm 62.31 Est GFR (CKD-EPI)NonAf 53.76 POC Glucometer 79 Random Glucose 87 Calcium 7.8 L Phosphorus 1.6 L Magnesium 2.3 Iron 26 L TIBC 156 L Iron Saturation 16 L Unsaturated IBC 130 L Ferritin 167.0 Total Bilirubin 0.3 AST 13 L ALT 9 L Alkaline Phosphatase 64 Total Protein 4.7 L Albumin 2.0 L Vitamin B12 1014 H Serum Folate 19 H TSH 0.49 Urine Color Urine Appearance Urine pH Ur Specific [place] Urine Protein Urine Glucose (UA) Urine Ketones Urine Blood Urine Nitrite Urine Bilirubin Urine Urobilinogen Ur Leukocyte Esterase Current Medications Generic Name Dose Route Start Last Admin Trade Name Freq PRN Reason Stop Dose Admin Buprenorphine/Naloxone 2 each 01/24/20 14:00 01/24/20 15:16 Suboxone 2 Mg/0.5 Mg Film Packet SL 01/31/20 23:59 2 each DAILY PARESH Administration Buspirone HCl 15 mg 01/23/20 22:00 01/24/20 09:28 Buspar - PO 15 mg BID PARESH Administration Escitalopram Oxalate 10 mg 01/24/20 10:00 01/24/20 09:28 Lexapro - PO 10 mg DAILY PARESH Administration Heparin Sodium (Porcine) 5,000 unit 01/23/20 22:00 01/24/20 15:05 Heparin - SQ 5,000 unit TID PARESH Administration Sodium Chloride 1,000 mls @ 100 mls/hr 01/23/20 15:45 01/24/20 15:03 Normal Saline - IV Not Given ASDIR [facility] Insulin Aspart 1 vial 01/23/20 22:00 01/24/20 11:25 Novolog Vial Sliding Scale - SQ Not Given ACHS [facility] Protocol Potassium Phos/Sodium Phos 1 packet 01/23/20 22:00 01/24/20 09:29 Phos-Nak Packet - PO 1 packet BID PARESH Administration Quetiapine Fumarate 150 mg 01/23/20 22:00 01/23/20 22:04 Seroquel - PO 150 mg HS PARESH Administration Home Medications Medication Instructions Recorded Buspirone HCl [Buspar -] 15 mg PO BID 01/10/20 Escitalopram Oxalate [Lexapro -] 10 mg PO DAILY 01/10/20 Quetiapine Fumarate [Seroquel -] 300 mg PO HS 01/10/20 Lisinopril 20 mg PO DAILY 01/23/20 Lovastatin [Altoprev] 20 mg PO DAILY 01/23/20 Metformin HCl [Glucophage] 500 mg PO BID 01/23/20 Metoprolol Succinate 25 mg PO DAILY 01/23/20 Trazodone HCl 150 mg PO HS 01/23/20 ASSESSMENT/PLAN: 64 year old female with HTN, DM 2, HLD, multiple psychiatric problems, cocaine/heroine abuse sent to the ED from from [facility] for hypotension. Last heroin use > 2 weeks ago. She was undergoing Detox at [facility] receiving Suboxone. 1. Hypotension, likely due to dehydration - resolving with IV fluids. Continue IV hydration. No infective symptoms, no signs of sepsis. 2. MAVIS secondary to intravascular volume depletion. Renal US - mild bilateral hydronephrosis Renal function improving with IV hydration. Nephrology following. 3. Substance Abuse - Cocaine/Heroin Addiction Medicine consulted- recommend continuing on Suboxone. 4. Hypophosphatemia - repleted. 5. HTN - Lisinopril and Metoprolol held. 6. DM 2 - Metfromin held. Maintain on Novolog as per sliding scale. 7. Multiple Psychiatric Disorders - more history needed from PCP - continue home Buspirone, Lexapro, Seroquel, Trazodone. 8. Normocytic Anemia with drop in Hb from 9.7 to 8.0, likely dilutional. Ferritin 167, B12 1014, Fol 19. No sign of active blood loss. Will send FOBT and Hematology consult. DVT Px - cautious Heparin SQ Visit type - Emergency Visit Emergency Visit: Yes ED Registration Date: 01/23/20 Care time: The patient presented to the Emergency Department on the above date and was hospitalized for further evaluation of their emergent condition. - New Patient This patient is new to me today: Yes Date on this admission: 01/24/20 - Critical Care Critical Care patient: No - Discharge Referral Referred to [facility] Med P.C.: No
--- NOTE | 2020-01-24 18:16 | CONSULT ---
Consult - text type - Consultation Consultation Note: Lucy Saez is a 64F with PMH HTN and cocaine/heroin use disorder, sent from [facility] for 2 weeks of anorexia and weight loss with hypotension. Patient last used heroin/cocaine 2 weeks ago, one day prior to check in at [facility] detox program. For the last month, patient has reported anorexia and a lot of weight loss, denies any F/C/N/V/D, denies covid-19, denies urinary sx, LUU. NKDA On suboxone for opiate detox Denies alcohol use, smokes 0.5ppd. - Medical History Allergies/Adverse Reactions: Allergies Allergy/AdvReac Type Severity Reaction Status Date / Time No Known Allergies Allergy Verified 01/10/20 13:13 Home Medications: Ambulatory Orders Buspirone HCl [Buspar -] 15 mg PO BID 01/10/20 Escitalopram Oxalate [Lexapro -] 10 mg PO DAILY 01/10/20 Quetiapine Fumarate [Seroquel -] 300 mg PO HS 01/10/20 Lisinopril 20 mg PO DAILY 01/23/20 Lovastatin [Altoprev] 20 mg PO DAILY 01/23/20 Metformin HCl [Glucophage] 500 mg PO BID 01/23/20 Metoprolol Succinate 25 mg PO DAILY 01/23/20 Trazodone HCl 150 mg PO HS 01/23/20 PMH Diabetes: Yes HTN: Yes (ON MEDS) Hypercholesterolemia: Yes Seizures: Yes (2004- DRUG RLT) - Immunization History Immunization Up to Date: Yes - Psycho-Social/Smoking History Smoking History: Former smoker Have you smoked in the past 12 months: Yes *Physical Exam Last Vital Signs Temp Pulse Resp BP Pulse Ox 98.9 F 81 18 121/56 L 99 01/24/20 18:44 01/24/20 18:44 01/24/20 18:44 01/24/20 18:44 01/24/20 10:00 Cor: RSR, No murmurs, No gallops Lungs: Clear to P&A Abd: Soft, Normal bowel sounds, No organomegaly Ext:No significant edema Skin: No rashes, Integument intact A/P 64 y/o patient Multifactorial--anemia of chronic disease +/- gi losses Anemia of chronic disease : normocytic/normochromic B12/folate/TSH--nl IRon sat 16%/ferritin 167 given > 5% wt. loss recommend w/u with CT scans and GI w/u
[2020-01-24] MEDS ORDERED: QUEtiapine FUMARATE 25 MG TABLET ONE (21:52)
[2020-01-24] MEDS: ATORVASTATIN CA 10 MG TABLET (FP) PO SCH (22:05)
[2020-01-24] MEDS: QUEtiapine FUMARATE 50 MG TABLET PO SCH (22:07)
[2020-01-24] MEDS: traZODone HCL 50 MG TABLET (FP) PO SCH (22:07)
[2020-01-25] MEDS: HEPARIN NA (PORCINE) 5,000 UNITS/ML 1ML VIAL SQ SCH ×3 (05:50→21:53)
[2020-01-25] MEDS: INSULIN SLIDING SCALE (NOVOLOG) 1 VIAL SQ SCH ×4 (07:22→21:50)
[2020-01-25] MEDS: ESCITALOPRAM OXALATE 10 MG TABLET PO SCH (09:37)
[2020-01-25] MEDS: busPIRone HCL 5 MG TABLET PO SCH ×2 (09:38→21:50)
[2020-01-25] MEDS: BUPRENORPHINE/NALOXONE 2 MG/0.5 MG FILM PACKET SL SCH (09:38)
[2020-01-25] MEDS: NAPH,MB-DB/K PH,MBDB POWDER PACKET PO SCH ×2 (09:40→21:49)
[2020-01-25] MEDS: SODIUM CHLORIDE 1,000 ML IV SCH (09:42)
[2020-01-25] MEDS ORDERED: PATIENT'S OWN MEDICATION (NON-FORMULARY) (Lovastatin [Altoprev] 20 MG) PO SCH (10:00)
[2020-01-25] MEDS ORDERED: INSULIN (NOVOLOG) ASPART 100 UNITS/ML 10ML VIAL ONE ×2 (11:42→18:49)
[2020-01-25 13:05] LABS: BASO % 0.6 % (0-2.0); BLOOD UREA NITROGEN 13.3 mg/dL (7-18); CALCIUM 8.3 mg/dL (8.5-10.1); CREATININE 0.8 mg/dL (0.55-1.3); EOS % 0.1 % (0-4.5); HEMATOCRIT 28.4 % (32.4-45.2); HEMOGLOBIN 9.2 GM/dL (10.7-15.3); LYMPH % 32.9 % (8-40); MAGNESIUM 1.9 mg/dL (1.8-2.4); MCH 28.4 pg (25.7-33.7); MCHC 32.6 g/dl (32.0-36.0); MEAN CELL VOLUME 87.1 fl (80-96); MEAN PLT VOLUME 7.8 fl (7.5-11.1); MONO % 8.5 % (3.8-10.2); NEUT % 57.9 % (42.8-82.8); PHOSPHOROUS 2.8 mg/dL (2.5-4.9); PLATELET COUNT 371 K/MM3 (134-434); POTASSIUM 4.5 mmol/L (3.5-5.1); RBC 3.26 M/mm3 (3.60-5.2); RDW 15.8 % (11.6-15.6); WHITE BLOOD COUNT 5.6 K/mm3 (4.0-10.0)
[2020-01-25] MEDS: NICOTINE 14 MG/24 HOURS TOPICAL PATCH TD SCH (15:39)
--- NOTE | 2020-01-25 15:49 | PN ---
Teaching Attending Note Name of Resident: Naveen Machuca ATTENDING PHYSICIAN STATEMENT I saw and evaluated the patient. I reviewed the resident's note and discussed the case with the resident. I agree with the resident's findings and plan as documented. SUBJECTIVE: Feeling well, no complaints. No headache/dizziness/visual disturbance/nausea/vomiting. No fever/chills. No cough/sputum. No dysuria. OBJECTIVE: Afebrile, Hemodynamically Stable. Last Vital Signs Temp Pulse Resp BP Pulse Ox 98.8 F 90 18 121/88 100 01/25/20 15:46 01/25/20 15:46 01/25/20 15:46 01/25/20 15:46 01/25/20 09:00 Heart - S1, S2, RRR Lungs - clear to auscultation Abdomen - soft, non-tender. Bowel Sounds normal. Extremities - no edema, no calf tenderness. Neuro = AAO x 3. Tone/Power normal. Laboratory Results - last 24 hr 01/24/20 01/24/20 01/25/20 17:19 21:58 05:57 WBC RBC Hgb Hct MCV MCH MCHC RDW Plt Count MPV Absolute Neuts (auto) Neutrophils % Lymphocytes % Monocytes % Eosinophils % Basophils % Nucleated RBC % Sodium Potassium Chloride Carbon Dioxide Anion Gap BUN Creatinine Est GFR (CKD-EPI)AfAm Est GFR (CKD-EPI)NonAf POC Glucometer 90 101 73 Random Glucose Calcium Phosphorus Magnesium Direct Antiglob Test 01/25/20 01/25/20 01/25/20 11:12 11:12 11:45 WBC 5.6 RBC 3.26 L Hgb 9.2 L Hct 28.4 L MCV 87.1 MCH 28.4 MCHC 32.6 RDW 15.8 H Plt Count 371 D MPV 7.8 Absolute Neuts (auto) 3.3 Neutrophils % 57.9 D Lymphocytes % 32.9 D Monocytes % 8.5 Eosinophils % 0.1 Basophils % 0.6 Nucleated RBC % 0 Sodium 136 Potassium 4.5 Chloride 106 Carbon Dioxide 26 Anion Gap 4 L BUN 13.3 Creatinine 0.8 Est GFR (CKD-EPI)AfAm 91.58 Est GFR (CKD-EPI)NonAf 79.01 POC Glucometer 103 Random Glucose 101 Calcium 8.3 L Phosphorus 2.8 Magnesium 1.9 Direct Antiglob Test 01/25/20 13:10 WBC RBC Hgb Hct MCV MCH MCHC RDW Plt Count MPV Absolute Neuts (auto) Neutrophils % Lymphocytes % Monocytes % Eosinophils % Basophils % Nucleated RBC % Sodium Potassium Chloride Carbon Dioxide Anion Gap BUN Creatinine Est GFR (CKD-EPI)AfAm Est GFR (CKD-EPI)NonAf POC Glucometer Random Glucose Calcium Phosphorus Magnesium Direct Antiglob Test Negative Current Medications Generic Name Dose Route Start Last Admin Trade Name Freq PRN Reason Stop Dose Admin Atorvastatin Calcium 10 mg 01/24/20 22:00 01/24/20 22:05 Lipitor - PO 10 mg HS PARESH Administration Buprenorphine/Naloxone 2 each 01/24/20 14:00 01/25/20 09:38 Suboxone 2 Mg/0.5 Mg Film Packet SL 01/31/20 23:59 2 each DAILY PARESH Administration Buspirone HCl 15 mg 01/23/20 22:00 01/25/20 09:38 Buspar - PO 15 mg BID PARESH Administration Escitalopram Oxalate 10 mg 01/24/20 10:00 01/25/20 09:37 Lexapro - PO 10 mg DAILY PARESH Administration Heparin Sodium (Porcine) 5,000 unit 01/23/20 22:00 01/25/20 13:51 Heparin - SQ 5,000 unit TID PARESH Administration Insulin Aspart 1 vial 01/23/20 22:00 01/25/20 11:48 Novolog Vial Sliding Scale - SQ Not Given ACHS [facility] Protocol Nicotine 14 mg 01/25/20 15:15 01/25/20 15:39 Nicoderm Patch - TD 14 mg DAILY PARESH Administration Potassium Phos/Sodium Phos 1 packet 01/23/20 22:00 01/25/20 09:40 Phos-Nak Packet - PO 1 packet BID PARESH Administration Quetiapine Fumarate 150 mg 01/23/20 22:00 01/24/20 22:07 Seroquel - PO 150 mg HS PARESH Administration Trazodone HCl 150 mg 01/24/20 22:00 01/24/20 22:07 Desyrel - PO 150 mg HS PARESH Administration Home Medications Medication Instructions Recorded Buspirone HCl [Buspar -] 15 mg PO BID 01/10/20 Escitalopram Oxalate [Lexapro -] 10 mg PO DAILY 01/10/20 Quetiapine Fumarate [Seroquel -] 300 mg PO HS 01/10/20 Lisinopril 20 mg PO DAILY 01/23/20 Lovastatin [Altoprev] 20 mg PO DAILY 01/23/20 Metformin HCl [Glucophage] 500 mg PO BID 01/23/20 Metoprolol Succinate 25 mg PO DAILY 01/23/20 Trazodone HCl 150 mg PO HS 01/23/20 ASSESSMENT/PLAN: 64 year old female with HTN, DM 2, HLD, multiple psychiatric problems, cocaine/heroine abuse sent to the ED from from [facility] for hypotension. Last heroin use > 2 weeks ago. She was undergoing Detox at [facility] receiving Suboxone. 1. Hypotension, likely due to dehydration - resolved with IV fluids. No infective symptoms, no signs of sepsis. 2. MAVIS secondary to intravascular volume depletion. Renal US - mild bilateral hydronephrosis Renal function improved with IV hydration. 3. Substance Abuse - Cocaine/Heroin Addiction Medicine consulted - recommend continuing on Suboxone. Addiction Medicine for further guidance re: dispo ?return to vs DC Home. 4. Hypophosphatemia - repleted. 5. HTN - Lisinopril and Metoprolol held. 6. DM 2 - Metformin held. Maintain on Novolog as per sliding scale. 7. Multiple Psychiatric Disorders - more history needed from PCP - continue home Buspirone, Lexapro, Seroquel, Trazodone. 8. Normocytic Anemia. Ferritin 167, B12 1014, Fol 19. No sign of active blood loss. Will send FOBT and Hematology consulted. Patient apparently refused to see Hematology internal audit consultant as per Dr. Louis. Will need out-patient Hematology evaluation. H/H Stable. DVT Px - cautious Heparin SQ
[2020-01-25] MEDS ORDERED: QUEtiapine FUMARATE 25 MG TABLET ONE (21:26)
[2020-01-25] MEDS ORDERED: PT OWN MED DRAWER 7, Y5N ONE (21:27)
[2020-01-25] MEDS: traZODone HCL 50 MG TABLET (FP) PO SCH (21:49)
[2020-01-25] MEDS: ATORVASTATIN CA 10 MG TABLET (FP) PO SCH (21:49)
[2020-01-25] MEDS: QUEtiapine FUMARATE 50 MG TABLET PO SCH (21:50)
[2020-01-26] MEDS: HEPARIN NA (PORCINE) 5,000 UNITS/ML 1ML VIAL SQ SCH ×3 (06:34→23:05)
[2020-01-26] MEDS: INSULIN SLIDING SCALE (NOVOLOG) 1 VIAL SQ SCH ×4 (06:35→23:05)
[2020-01-26] MEDS: NICOTINE 14 MG/24 HOURS TOPICAL PATCH TD SCH (10:29)
[2020-01-26] MEDS: NAPH,MB-DB/K PH,MBDB POWDER PACKET PO SCH ×2 (10:29→23:04)
[2020-01-26] MEDS: ESCITALOPRAM OXALATE 10 MG TABLET PO SCH (10:29)
[2020-01-26] MEDS: BUPRENORPHINE/NALOXONE 2 MG/0.5 MG FILM PACKET SL SCH (10:29)
[2020-01-26] MEDS: busPIRone HCL 5 MG TABLET PO SCH ×2 (10:29→23:04)
[2020-01-26 12:52] LABS: BASO % 1.2 % (0-2.0); EOS % 0.1 % (0-4.5); HEMATOCRIT 29.1 % (32.4-45.2); HEMOGLOBIN 9.2 GM/dL (10.7-15.3); LYMPH % 37.4 % (8-40); MCH 27.4 pg (25.7-33.7); MCHC 31.7 g/dl (32.0-36.0); MEAN CELL VOLUME 86.6 fl (80-96); MEAN PLT VOLUME 7.1 fl (7.5-11.1); MONO % 9.2 % (3.8-10.2); NEUT % 52.1 % (42.8-82.8); PLATELET COUNT 339 K/MM3 (134-434); RBC 3.37 M/mm3 (3.60-5.2); WHITE BLOOD COUNT 4.4 K/mm3 (4.0-10.0)
--- NOTE | 2020-01-26 15:33 | PN ---
Progress Note (short form) - Note Progress Note: SUBJECTIVE: Feeling well, no complaints. No headache/dizziness/visual disturbance/nausea/vomiting. No fever/chills. No cough/sputum. No dysuria. OBJECTIVE: Afebrile, Hemodynamically Stable. Last Vital Signs Temp Pulse Resp BP Pulse Ox 98.1 F 99 H 18 138/76 100 01/26/20 10:00 01/26/20 10:00 01/26/20 10:00 01/26/20 10:00 01/26/20 09:00 Heart - S1, S2, RRR Lungs - clear to auscultation Abdomen - soft, non-tender. Bowel Sounds normal. Extremities - no edema, no calf tenderness. Neuro = AAO x 3. Tone/Power normal. Laboratory Results - last 24 hr 01/23/20 01/25/20 01/25/20 17:00 16:52 21:41 WBC Corrected WBC (auto) RBC Hgb Hct MCV MCH MCHC RDW Plt Count MPV Absolute Neuts (auto) Absolute Lymphs (auto) Absolute Monos (auto) Absolute Eos (auto) Absolute Basos (auto) Add Manual Diff Neutrophils % Lymphocytes % Monocytes % Eosinophils % Basophils % Nucleated RBC % Platelet Estimate Platelet Comment Normal RBC Morphology ESR POC Glucometer 111 116 LD Total COVID-19 (DANAY) Not detected 01/26/20 01/26/20 01/26/20 06:29 08:35 08:35 WBC Cancelled Corrected WBC (auto) Cancelled RBC Cancelled Hgb Cancelled Hct Cancelled MCV Cancelled MCH Cancelled MCHC Cancelled RDW Cancelled Plt Count Cancelled MPV Cancelled Absolute Neuts (auto) Cancelled Absolute Lymphs (auto) Cancelled Absolute Monos (auto) Cancelled Absolute Eos (auto) Cancelled Absolute Basos (auto) Cancelled Add Manual Diff Cancelled Neutrophils % Cancelled Lymphocytes % Cancelled Monocytes % Cancelled Eosinophils % Cancelled Basophils % Cancelled Nucleated RBC % Cancelled Platelet Estimate Cancelled Platelet Comment Cancelled Normal RBC Morphology Cancelled ESR 31 H POC Glucometer 89 LD Total 168 COVID-19 (DANAY) 01/26/20 01/26/20 11:56 12:40 WBC 4.4 Corrected WBC (auto) RBC 3.37 L Hgb 9.2 L Hct 29.1 L MCV 86.6 MCH 27.4 MCHC 31.7 L RDW 16.0 H Plt Count 339 MPV 7.1 L Absolute Neuts (auto) 2.3 Absolute Lymphs (auto) Absolute Monos (auto) Absolute Eos (auto) Absolute Basos (auto) Add Manual Diff Neutrophils % 52.1 Lymphocytes % 37.4 Monocytes % 9.2 Eosinophils % 0.1 Basophils % 1.2 Nucleated RBC % 0 Platelet Estimate Platelet Comment Normal RBC Morphology ESR POC Glucometer 120 LD Total COVID-19 (DANAY) Current Medications Generic Name Dose Route Start Last Admin Trade Name Saw PRN Reason Stop Dose Admin Atorvastatin Calcium 10 mg 01/24/20 22:00 01/25/20 21:49 Lipitor - PO 10 mg HS PARESH Administration Buprenorphine/Naloxone 2 each 01/24/20 14:00 01/26/20 10:29 Suboxone 2 Mg/0.5 Mg Film Packet SL 01/31/20 23:59 2 each DAILY PARESH Administration Buspirone HCl 15 mg 01/23/20 22:00 01/26/20 10:29 Buspar - PO 15 mg BID PARESH Administration Escitalopram Oxalate 10 mg 01/24/20 10:00 01/26/20 10:29 Lexapro - PO 10 mg DAILY PARESH Administration Heparin Sodium (Porcine) 5,000 unit 01/23/20 22:00 01/26/20 14:20 Heparin - SQ 5,000 unit TID PARESH Administration Insulin Aspart 1 vial 01/23/20 22:00 01/26/20 11:59 Novolog Vial Sliding Scale - SQ Not Given ACHS PARESH Protocol Nicotine 14 mg 01/25/20 15:15 01/26/20 10:29 Nicoderm Patch - TD 14 mg DAILY PARESH Administration Potassium Phos/Sodium Phos 1 packet 01/23/20 22:00 01/26/20 10:29 Phos-Nak Packet - PO 1 packet BID PARESH Administration Quetiapine Fumarate 150 mg 01/23/20 22:00 01/25/20 21:50 Seroquel - PO 150 mg HS PARESH Administration Trazodone HCl 150 mg 01/24/20 22:00 01/25/20 21:49 Desyrel - PO 150 mg HS PARESH Administration Home Medications Medication Instructions Recorded Buspirone HCl [Buspar -] 15 mg PO BID 01/10/20 Escitalopram Oxalate [Lexapro -] 10 mg PO DAILY 01/10/20 Quetiapine Fumarate [Seroquel -] 300 mg PO HS 01/10/20 Lisinopril 20 mg PO DAILY 01/23/20 Lovastatin [Altoprev] 20 mg PO DAILY 01/23/20 Metformin HCl [Glucophage] 500 mg PO BID 01/23/20 Metoprolol Succinate 25 mg PO DAILY 01/23/20 Trazodone HCl 150 mg PO HS 01/23/20 ASSESSMENT/PLAN: 64 year old female with HTN, DM 2, HLD, multiple psychiatric problems, cocaine/heroine abuse sent to the ED from from [facility] for hypotension. Last heroin use > 2 weeks ago. She was undergoing Detox at [facility] receiving Suboxone. 1. Hypotension, likely due to dehydration - resolved with IV fluids. No infective symptoms, no signs of sepsis. BP now 138/76 2. MAVIS secondary to intravascular volume depletion. Renal US - mild bilateral hydronephrosis Renal function improved with IV hydration. Urology out-patient follow up for repeat renal imaging. 3. Substance Abuse - Cocaine/Heroin Addiction Medicine consulted - recommend continuing on Suboxone. Unable to return to [facility] until 01/26 at the earliest as does not accept patients over the weekend as per Dr. Gold. In light of cocaine use history and mild Cardiomegaly on CXR will order Echo. 4. Hypophosphatemia - repleted. 5. HTN - Lisinopril and Metoprolol held. Echo requested as patient is now normotensive off BP meds and in light of mild cardiomegaly on CXR. 6. DM 2 - Metformin held. Maintain on Novolog as per sliding scale. 7. Multiple Psychiatric Disorders - more history needed from PCP - continue home Buspirone, Lexapro, Seroquel, Trazodone. 8. Normocytic Anemia. Ferritin 167, B12 1014, Fol 19. No sign of active blood loss. FOBT requested. Hematology consulted. Patient apparently refused to see Hematology architectural sales consultant as per Dr. Louis. Will need out-patient Hematology evaluation. H/H Stable. DVT Px - cautious Heparin SQ Visit type - Emergency Visit Emergency Visit: Yes ED Registration Date: 01/23/20 Care time: The patient presented to the Emergency Department on the above date and was hospitalized for further evaluation of their emergent condition. - New Patient This patient is new to me today: No - Critical Care Critical Care patient: No - Discharge Referral Referred to [facility] No
[2020-01-26] MEDS ORDERED: DOCUSATE SODIUM 100 MG CAPSULE (FP) PO ONE (21:54)
[2020-01-26] MEDS ORDERED: QUEtiapine FUMARATE 25 MG TABLET ONE (23:00)
[2020-01-26] MEDS: traZODone HCL 50 MG TABLET (FP) PO SCH (23:04)
[2020-01-26] MEDS: ATORVASTATIN CA 10 MG TABLET (FP) PO SCH (23:05)
[2020-01-26] MEDS: QUEtiapine FUMARATE 50 MG TABLET PO SCH (23:06)
[2020-01-27] MEDS: HEPARIN NA (PORCINE) 5,000 UNITS/ML 1ML VIAL SQ SCH ×3 (06:17→21:27)
[2020-01-27] MEDS: INSULIN SLIDING SCALE (NOVOLOG) 1 VIAL SQ SCH ×4 (06:18→21:27)
[2020-01-27] MEDS: NICOTINE 14 MG/24 HOURS TOPICAL PATCH TD SCH (09:35)
[2020-01-27] MEDS: busPIRone HCL 5 MG TABLET PO SCH ×2 (09:37→21:25)
[2020-01-27] MEDS: BUPRENORPHINE/NALOXONE 2 MG/0.5 MG FILM PACKET SL SCH (09:39)
[2020-01-27] MEDS: ESCITALOPRAM OXALATE 10 MG TABLET PO SCH (09:39)
[2020-01-27] MEDS: NAPH,MB-DB/K PH,MBDB POWDER PACKET PO SCH ×2 (09:39→21:25)
--- NOTE | 2020-01-27 14:59 | PN ---
Progress Note, Physician History of Present Illness: Pt seen and examined at bedside. She is awake and alert. She denies shortness of breath. - Current Medication List Current Medications: Active Medications Atorvastatin Calcium (Lipitor -) 10 mg PO [facility] Last Admin: 01/26/20 23:05 Dose: 10 mg Documented by: Buprenorphine/Naloxone (Suboxone 2 Mg/0.5 Mg Film Packet) 2 each SL DAILY [facility] Stop: 01/31/20 23:59 Last Admin: 01/27/20 09:39 Dose: 2 each Documented by: Buspirone HCl (Buspar -) 15 mg PO BID [facility] Last Admin: 01/27/20 09:37 Dose: 15 mg Documented by: Escitalopram Oxalate (Lexapro -) 10 mg PO DAILY [facility] Last Admin: 01/27/20 09:39 Dose: 10 mg Documented by: Heparin Sodium (Porcine) (Heparin -) 5,000 unit SQ TID [facility] Last Admin: 01/27/20 13:32 Dose: 5,000 unit Documented by: Insulin Aspart (Novolog Vial Sliding Scale -) 1 vial SQ [facility]; Protocol Last Admin: 01/27/20 11:54 Dose: Not Given Documented by: Nicotine (Nicoderm Patch -) 14 mg TD DAILY [facility] Last Admin: 01/27/20 09:35 Dose: 14 mg Documented by: Potassium Phos/Sodium Phos (Phos-Nak Packet -) 1 packet PO BID [facility] Last Admin: 01/27/20 09:39 Dose: 1 packet Documented by: Quetiapine Fumarate (Seroquel -) 150 mg PO [facility] Last Admin: 01/26/20 23:06 Dose: 150 mg Documented by: Trazodone HCl (Desyrel -) 150 mg PO [facility] Last Admin: 01/26/20 23:04 Dose: 150 mg Documented by: - Objective Vital Signs: Vital Signs Temperature 98.6 F 01/27/20 06:00 Pulse Rate 104 H 01/27/20 10:00 Respiratory Rate 18 01/27/20 10:00 Blood Pressure 88/60 L 01/27/20 10:00 O2 Sat by Pulse Oximetry (%) 99 01/27/20 09:00 Constitutional: Yes: Calm Eyes: Yes: Conjunctiva Clear HENT: Yes: Atraumatic Neck: Yes: Supple Cardiovascular: Yes: S1, S2 Respiratory: Yes: CTA Bilaterally Gastrointestinal: Yes: Soft Genitourinary: Yes: WNL Musculoskeletal: Yes: WNL Edema: No Neurological: Yes: Oriented Psychiatric: Yes: Oriented Labs: CBC, BMP 01/26/20 12:40 01/25/20 11:12 INR, PTT INR 0.87 (0.83-1.09) 01/23/20 14:15 Problem List - Problems (1) MAVIS (acute kidney injury) Code(s): N17.9 - ACUTE KIDNEY FAILURE, UNSPECIFIED (2) Cocaine use disorder Code(s): F14.10 - COCAINE ABUSE, UNCOMPLICATED (3) Opioid dependence Code(s): F11.20 - OPIOID DEPENDENCE, UNCOMPLICATED Assessment/Plan Current Medications Generic Name Dose Route Start Last Admin Trade Name Saw PRN Reason Stop Dose Admin Atorvastatin Calcium 10 mg 01/24/20 22:00 01/26/20 23:05 Lipitor - PO 10 mg HS PARESH Administration Buprenorphine/Naloxone 2 each 01/24/20 14:00 01/27/20 09:39 Suboxone 2 Mg/0.5 Mg Film Packet SL 01/31/20 23:59 2 each DAILY PARESH Administration Buspirone HCl 15 mg 01/23/20 22:00 01/27/20 09:37 Buspar - PO 15 mg BID PARESH Administration Escitalopram Oxalate 10 mg 01/24/20 10:00 01/27/20 09:39 Lexapro - PO 10 mg DAILY PARESH Administration Heparin Sodium (Porcine) 5,000 unit 01/23/20 22:00 01/27/20 13:32 Heparin - SQ 5,000 unit TID PARESH Administration Insulin Aspart 1 vial 01/23/20 22:00 01/27/20 11:54 Novolog Vial Sliding Scale - SQ Not Given ACHS [facility] Protocol Nicotine 14 mg 01/25/20 15:15 01/27/20 09:35 Nicoderm Patch - TD 14 mg DAILY PARESH Administration Potassium Phos/Sodium Phos 1 packet 01/23/20 22:00 01/27/20 09:39 Phos-Nak Packet - PO 1 packet BID PARESH Administration Quetiapine Fumarate 150 mg 01/23/20 22:00 01/26/20 23:06 Seroquel - PO 150 mg HS PARESH Administration Trazodone HCl 150 mg 01/24/20 22:00 01/26/20 23:04 Desyrel - PO 150 mg HS PARESH Administration Impression 1. MAVIS 2. possible hydro 3. hypophos 4. hypotnsion 5. multi drug abuse Plan - renal function improved - monitor bp - pt off of all bp meds - monitor lytes - avoid nsaids - will follow PRN
--- NOTE | 2020-01-27 15:08 | PN ---
Teaching Attending Note Name of Resident: Loco Izquierdo ATTENDING PHYSICIAN STATEMENT I saw and evaluated the patient. I reviewed the resident's note and discussed the case with the resident. I agree with the resident's findings and plan as documented. SUBJECTIVE: Feeling well, no complaints. No headache/dizziness/visual disturbance/nausea/vomiting. No fever/chills. No cough/sputum. No dysuria. OBJECTIVE: Afebrile, Hemodynamically Stable. Last Vital Signs Temp Pulse Resp BP Pulse Ox 98.5 F 84 18 138/74 99 01/27/20 14:10 01/27/20 15:53 01/27/20 15:53 01/27/20 15:53 01/27/20 09:00 Heart - S1, S2, RRR Lungs - clear to auscultation Abdomen - soft, non-tender. Bowel Sounds normal. Extremities - no edema, no calf tenderness. Neuro = AAO x 3. Tone/Power normal. Laboratory Results - last 24 hr 01/26/20 01/26/20 01/27/20 16:55 22:56 06:15 POC Glucometer 130 115 102 01/27/20 11:42 POC Glucometer 118 Current Medications Generic Name Dose Route Start Last Admin Trade Name Georgeq PRN Reason Stop Dose Admin Atorvastatin Calcium 10 mg 01/24/20 22:00 01/26/20 23:05 Lipitor - PO 10 mg HS PARESH Administration Buprenorphine/Naloxone 2 each 01/24/20 14:00 01/27/20 09:39 Suboxone 2 Mg/0.5 Mg Film Packet SL 01/31/20 23:59 2 each DAILY PARESH Administration Buspirone HCl 15 mg 01/23/20 22:00 01/27/20 09:37 Buspar - PO 15 mg BID PARESH Administration Escitalopram Oxalate 10 mg 01/24/20 10:00 01/27/20 09:39 Lexapro - PO 10 mg DAILY PARESH Administration Heparin Sodium (Porcine) 5,000 unit 01/23/20 22:00 01/27/20 13:32 Heparin - SQ 5,000 unit TID PARESH Administration Insulin Aspart 1 vial 01/23/20 22:00 01/27/20 11:54 Novolog Vial Sliding Scale - SQ Not Given ACHS [facility] Protocol Nicotine 14 mg 01/25/20 15:15 01/27/20 09:35 Nicoderm Patch - TD 14 mg DAILY [facility] Administration Potassium Phos/Sodium Phos 1 packet 01/23/20 22:00 01/27/20 09:39 Phos-Nak Packet - PO 1 packet BID PARESH Administration Quetiapine Fumarate 150 mg 01/23/20 22:00 01/26/20 23:06 Seroquel - PO 150 mg HS PARESH Administration Trazodone HCl 150 mg 01/24/20 22:00 01/26/20 23:04 Desyrel - PO 150 mg HS PARESH Administration Home Medications Medication Instructions Recorded Buspirone HCl [Buspar -] 15 mg PO BID 01/10/20 Escitalopram Oxalate [Lexapro -] 10 mg PO DAILY 01/10/20 Quetiapine Fumarate [Seroquel -] 300 mg PO HS 01/10/20 Lisinopril 20 mg PO DAILY 01/23/20 Lovastatin [Altoprev] 20 mg PO DAILY 01/23/20 Metformin HCl [Glucophage] 500 mg PO BID 01/23/20 Metoprolol Succinate 25 mg PO DAILY 01/23/20 Trazodone HCl 150 mg PO HS 01/23/20 ASSESSMENT/PLAN: 64 year old female with HTN, DM 2, HLD, multiple psychiatric problems, cocaine/heroine abuse sent to the ED from from [facility] for hypotension. Last heroin use > 2 weeks ago. She was undergoing Detox at [facility] receiving Suboxone. 1. Hypotension, likely due to dehydration - resolved with IV fluids. No infective symptoms, no signs of sepsis. 2. MAVIS secondary to intravascular volume depletion. Renal US - mild bilateral hydronephrosis Renal function improved with IV hydration. Urology out-patient follow up for repeat renal imaging. 3. Substance Abuse - Cocaine/Heroin Addiction Medicine consulted - recommend continuing on Suboxone. In light of cocaine use history and mild Cardiomegaly on CXR, Echo was ordered - shows EF 65%. 4. Moderate Pericardial Effusion on Echo, no signs of tamponade. Cardiology consulted. 5. HTN - Lisinopril and Metoprolol discontinued due to borderline BP. 6. DM 2 - Metformin held. Maintain on Novolog as per sliding scale. 7. Multiple Psychiatric Disorders - continue home Buspirone, Lexapro, Seroquel, Trazodone. 8. Normocytic Anemia. Ferritin 167, B12 1014, Fol 19. No sign of active blood loss. FOBT requested. Hematology consulted. Patient apparently refused to see Hematology consultant education as per Dr. Louis. Will need out-patient Hematology evaluation. H/H Stable. 9. Severe Protein Calorie Malnutrition - Glucerna and ensure supplementation. DVT Px - Heparin SQ
--- NOTE | 2020-01-27 15:42 | ECHO ---
Name: ASHLEIGHVERONICA Exam:Adult Echocardiogram Study Date: 01/27/2020 02:53 PM Age: 64 yrs Reason For Study: cardiomegaly MMode/2D Measurements & Calculations IVSd: 1.2 cm Ao root diam: 2.5 cm LVIDd: 3.1 cm LA dimension: 2.7 cm LVIDs: 2.1 cm LVPWd: 1.2 cm LVPWs: 1.5 cm EDV(Teich): 38.0 ml ESV(Teich): 14.7 ml LVOT diam: 1.8 cm LAV (MOD-bp): 46.0 ml RV S Ac: 17.8 cm/sec Doppler Measurements & Calculations MV E max ac: 73.1 cm/sec Ao V2 max: 168.3 cm/sec MV A max ac: 67.6 cm/sec Ao max P.3 mmHg MV E/A: 1.1 KAHLIL(V,D): 1.6 cm2 MV dec time: 0.16 sec LV V1 max P.6 mmHg TR max ac: 286.9 cm/sec LV V1 max: 107.1 cm/sec TR max P.9 mmHg PA V2 max: 84.6 cm/sec Med Peak E' Ac: 7.0 cm/sec PA max P.9 mmHg Med E/e': 10.4 Lat Peak E' Ac: 7.6 cm/sec Lat E/e': 9.7 Procedure Study Quality: Fair. Left Ventricle The left ventricle is normal in size. There is mild concentric left ventricular hypertrophy. The left ventricular ejection fraction is normal. Ejection Fraction = 65-70%. Left Ventricular Filling pattern is normal for age. Right Ventricle The right ventricle is normal in size and function. Atria Normal left and right atrial size and function. Mitral Valve The mitral valve leaflets appear normal. There is no evidence of stenosis, fluttering, or prolapse. T here is no mitral regurgitation noted. Tricuspid Valve The tricuspid valve is not well visualized, but is grossly normal. There is moderate tricuspid regurg itation. Right ventricular systolic pressure is elevated at 30-40mmHg. Aortic Valve The aortic valve is normal in structure and function. Pulmonic Valve The pulmonic valve is not well visualized. Great Vessels The aortic root is normal size. Pericardium/Pleura There is a moderate pericardial effusion. Interpretation Summary LV: Normal size,mild LVH normal function,EF 65-70% RV: Normal Moderate TR, PAP 30/40 mmHg Pericardim: Moderate effusion. Maia Jerez 01/27/2020 03:41 PM
--- NOTE | 2020-01-27 20:06 | PN ---
Physical Exam: SUBJECTIVE: 64 year old female patient with past medical history that includes HTN, DM, HLD, multiple psychiatric problems, cocaine/heroine abuse with last heroin use > 2 weeks ago, who presented to the ED with low blood pressure from [facility]. Patient seen and examined at bedside. Patient denied fever/chills, cough, nausea, vomiting, dysuria. OBJECTIVE: Vital Signs Period Temp Pulse Resp BP Sys/Alfaro Pulse Ox Last 24 Hr 98.5 F-99.1 F 82-104 18-20 88-138/53-76 96-99 GENERAL: The patient is awake, alert, and fully oriented, in no acute distress. HEAD: Normal with no signs of trauma. EYES: Extraocular movements intact. No ptosis. ENT: Ears normal, nares patent, moist mucous membranes. NECK: Trachea midline, full range of motion, supple. LUNGS: Breath sounds equal, clear to auscultation bilaterally, no wheezes, no crackles, no accessory muscle use. HEART: Regular rate and rhythm, S1, S2 without murmur, rub or gallop. ABDOMEN: Soft, nontender, nondistended, normoactive bowel sounds, no guarding, no rebound, no masses. EXTREMITIES: 2+ pulses, warm, well-perfused, no edema. NEUROLOGICAL: Normal speech, gait not observed. PSYCH: Normal mood, normal affect. SKIN: Warm, dry, normal turgor, no rashes or lesions noted Laboratory Results - last 24 hr 01/26/20 01/26/20 01/27/20 08:35 22:56 06:15 Haptoglobin 213 POC Glucometer 115 102 C-Reactive Protein 01/27/20 01/27/20 01/27/20 11:10 11:42 17:06 Haptoglobin POC Glucometer 118 99 C-Reactive Protein 0.9 H Active Medications Generic Name Dose Route Start Last Admin Trade Name Freq PRN Reason Stop Dose Admin Atorvastatin Calcium 10 mg 01/24/20 22:00 01/26/20 23:05 Lipitor - PO 10 mg HS PARESH Administration Buprenorphine/Naloxone 2 each 01/24/20 14:00 01/27/20 09:39 Suboxone 2 Mg/0.5 Mg Film Packet SL 01/31/20 23:59 2 each DAILY PARESH Administration Buspirone HCl 15 mg 01/23/20 22:00 01/27/20 09:37 Buspar - PO 15 mg BID PARESH Administration Escitalopram Oxalate 10 mg 01/24/20 10:00 01/27/20 09:39 Lexapro - PO 10 mg DAILY PARESH Administration Heparin Sodium (Porcine) 5,000 unit 01/23/20 22:00 01/27/20 13:32 Heparin - SQ 5,000 unit TID PARESH Administration Insulin Aspart 1 vial 01/23/20 22:00 01/27/20 17:43 Novolog Vial Sliding Scale - SQ Not Given ACHS [facility] Protocol Nicotine 14 mg 01/25/20 15:15 01/27/20 09:35 Nicoderm Patch - TD 14 mg DAILY PARESH Administration Potassium Phos/Sodium Phos 1 packet 01/23/20 22:00 01/27/20 09:39 Phos-Nak Packet - PO 1 packet BID PARESH Administration Quetiapine Fumarate 150 mg 01/23/20 22:00 01/26/20 23:06 Seroquel - PO 150 mg HS PARESH Administration Trazodone HCl 150 mg 01/24/20 22:00 01/26/20 23:04 Desyrel - PO 150 mg HS PARESH Administration ASSESSMENT/PLAN: 64 year old female patient with past medical history that includes HTN, DM, HLD, multiple psychiatric problems, cocaine/heroine abuse with last heroin use > 2 weeks ago, who presented to the ED with low blood pressure from [facility]. 1. Hypotension possibly secondary to dehydration - Patient's blood pressure is still low occasionally, going down to around 88/60 per vitals 2. MAVIS likely secondary to dehydration - Patient's creatinine returned back to baseline 3. Severe Protein Calorie Malnutrition - BMI 14.4, low phosphorus, 25% weight loss in 4 weeks, caloric intake < 75% of nutritional needs for > 1 month - Patient agreeable to glucerna shake bid, Ensure pudding daily 4. Anemia - Hematology consulted - Hematology outpatient 5. Cocaine/Heroin use - Patient is on Buprenorphine/Naloxone and will be sent back to [facility] once her stay at the hospital is finished 6. History of multiple psychiatric problems - patient is on Quetiapine, Buspirone, and Escitalopram 7. HTN - Patient's blood pressure has been low recently, going down to around 88/60 on 01/26 at 10:00am 8. DM - Patient is on Novolog sliding scale 9. HLD - Patient is on atorvastatin DVT Px Heparin SQ Visit type - Emergency Visit Emergency Visit: Yes ED Registration Date: 01/23/20 Care time: The patient presented to the Emergency Department on the above date and was hospitalized for further evaluation of their emergent condition. - New Patient This patient is new to me today: Yes Date on this admission: 01/27/20 - Critical Care Critical Care patient: No ATTENDING PHYSICIAN STATEMENT I saw and evaluated the patient. I reviewed the resident's note and discussed the case with the resident. I agree with the resident's findings and plan as documented. SUBJECTIVE: OBJECTIVE: ASSESSMENT AND PLAN:
[2020-01-27] MEDS ORDERED: QUEtiapine FUMARATE 25 MG TABLET ONE (21:21)
[2020-01-27] MEDS ORDERED: PT OWN MED DRAWER 7, Y5N ONE (21:22)
[2020-01-27] MEDS: traZODone HCL 50 MG TABLET (FP) PO SCH (21:25)
[2020-01-27] MEDS: QUEtiapine FUMARATE 50 MG TABLET PO SCH (21:26)
[2020-01-27] MEDS: ATORVASTATIN CA 10 MG TABLET (FP) PO SCH (21:26)
[2020-01-27] MEDS: POLYETHYLENE GLYCOL 3350 119 GM BTL PO SCH (21:32)
[2020-01-28] MEDS: HEPARIN NA (PORCINE) 5,000 UNITS/ML 1ML VIAL SQ SCH ×3 (05:53→22:22)
[2020-01-28] MEDS: INSULIN SLIDING SCALE (NOVOLOG) 1 VIAL SQ SCH ×4 (06:04→22:22)
[2020-01-28 07:51] LABS: HEMATOCRIT 23.3 % (32.4-45.2); HEMOGLOBIN 7.6 GM/dL (10.7-15.3); MCH 28.2 pg (25.7-33.7); MCHC 32.6 g/dl (32.0-36.0); MEAN CELL VOLUME 86.5 fl (80-96); MEAN PLT VOLUME 7.8 fl (7.5-11.1); PLATELET COUNT 286 K/MM3 (134-434); RBC 2.69 M/mm3 (3.60-5.2); RDW 16.3 % (11.6-15.6); WHITE BLOOD COUNT 4.3 K/mm3 (4.0-10.0)
[2020-01-28 08:07] LABS: BLOOD UREA NITROGEN 9.7 mg/dL (7-18); CALCIUM 8.1 mg/dL (8.5-10.1); CREATININE 0.7 mg/dL (0.55-1.3); MAGNESIUM 1.8 mg/dL (1.8-2.4); PHOSPHOROUS 3.2 mg/dL (2.5-4.9); POTASSIUM 4.1 mmol/L (3.5-5.1)
[2020-01-28] MEDS ORDERED: POLYETHYLENE GLYCOL 3350 119 GM BTL PO SCH (10:00)
[2020-01-28] MEDS: POLYETHYLENE GLYCOL 3350 119 GM BTL PO SCH (10:45)
[2020-01-28] MEDS: NICOTINE 14 MG/24 HOURS TOPICAL PATCH TD SCH (10:46)
[2020-01-28] MEDS: ESCITALOPRAM OXALATE 10 MG TABLET PO SCH (10:46)
[2020-01-28] MEDS: BUPRENORPHINE/NALOXONE 2 MG/0.5 MG FILM PACKET SL SCH (10:46)
[2020-01-28] MEDS: NAPH,MB-DB/K PH,MBDB POWDER PACKET PO SCH ×2 (10:46→22:21)
[2020-01-28] MEDS: busPIRone HCL 5 MG TABLET PO SCH ×2 (10:46→22:22)
--- NOTE | 2020-01-28 11:13 | CONSULT ---
Consultation: REQUESTING PROVIDER: Dr. Engle CONSULT REQUEST: We have been asked to medically evaluate this patient for thrombocytopenia and anemia . HISTORY OF PRESENT ILLNESS: Pt. is a 64 y.o. F w/ PMHx. of HTN, "Psychiatric problems," and polysubstance abuse presents from Detox at [facility] for hypotension. Pt. states that she was detoxing from heroin and cocaine (inhalation only for both). Pt. endorses last using cocaine and heroin ~ 3 weeks ago. Pt. denies abusing alcohol saying "that's not her drug of choice." Pt. states that she has been having night sweats and decreased PO intake intermittently for the last 3 years. More recently over the last 2 weeks she has had decreased PO intake and noticed 20 lb. weight loss. Pt. has not had a bowel movement in 2 weeks, states that she has the urge but other than gas, nothing comes out. Pt. last had a Pap Smear over 5 years ago which was unremarkable. Pt. last had a colonoscopy 3 years ago that was unremarkable. Pt. last had mammogram 4-5 years ago that was unremarkable. Pt. currently endorses LLQ tenderness that she states began after receiving her heparin SQ injections. Family history is positive for her Eldest brother having Lung CA in his 60s, 2 oldest brother being exposed to Agent [place] in [place], and Aunt having an unknown cancer in her 60s-70s. Pt. denies any blood in her stool or urine current nausea, headache or difficulty swallowing, chest pain or shortness of breath. Pt. states that she has been anemic for many many years but no underlying reason was ever diagnosed. Pt. denies being seen by a Hem/Onc physician in the past. REVIEW OF SYSTEMS: As above PHYSICAL EXAMINATION Vital Signs - 24 hr 01/27/20 01/27/20 01/27/20 14:10 15:53 21:00 Temperature 98.5 F Pulse Rate 96 H 84 Respiratory 18 18 20 Rate Blood Pressure 105/72 138/74 O2 Sat by Pulse 99 Oximetry (%) 01/27/20 01/28/20 01/28/20 22:00 02:00 06:00 Temperature 99 F 98.4 F 98.4 F Pulse Rate 92 H 87 87 Respiratory 20 20 20 Rate Blood Pressure 122/57 L 105/47 L 109/44 L O2 Sat by Pulse Oximetry (%) 01/28/20 01/28/20 09:00 10:00 Temperature 98.6 F Pulse Rate 87 Respiratory 18 Rate Blood Pressure 102/65 O2 Sat by Pulse 100 Oximetry (%) GENERAL: Awake, alert, and fully oriented, in no acute distress. HEAD: Normal with no signs of trauma. EYES: Extraocular movements intact, sclera anicteric, conjunctiva clear. EARS, NOSE, THROAT: Ears normal, nares patent, oropharynx clear without exudates. Moist mucous membranes. NECK: Normal range of motion, supple without lymphadenopathy, JVD, or masses. LUNGS: Breath sounds equal, clear to auscultation bilaterally. No wheezes, and no crackles. No accessory muscle use. HEART: Regular rate and rhythm, normal S1 and S2 without murmur ABDOMEN: Soft, nontender, not distended, normoactive bowel sounds, no guarding, no rebound, no masses. MUSCULOSKELETAL: No CVA tenderness. UPPER EXTREMITIES: Warm, well-perfused. No cyanosis. No peripheral edema. LOWER EXTREMITIES: 2+ dorsal pedal pulses, warm, well-perfused. No calf tenderness. No peripheral edema. NEUROLOGICAL: No focal deficits. Normal speech. Normal gait. PSYCHIATRIC: Cooperative. Good eye contact. Appropriate mood and affect. SKIN: Warm, dry, normal turgor, no rashes or lesions noted. Laboratory Results - last 24 hr 01/26/20 01/27/20 01/27/20 08:35 11:10 11:42 WBC RBC Hgb Hct MCV MCH MCHC RDW Plt Count MPV Haptoglobin 213 Sodium Potassium Chloride Carbon Dioxide Anion Gap BUN Creatinine Est GFR (CKD-EPI)AfAm Est GFR (CKD-EPI)NonAf POC Glucometer 118 Random Glucose Calcium Phosphorus Magnesium C-Reactive Protein 0.9 H 01/27/20 01/27/20 01/28/20 17:06 20:58 06:00 WBC RBC Hgb Hct MCV MCH MCHC RDW Plt Count MPV Haptoglobin Sodium Potassium Chloride Carbon Dioxide Anion Gap BUN Creatinine Est GFR (CKD-EPI)AfAm Est GFR (CKD-EPI)NonAf POC Glucometer 99 90 90 Random Glucose Calcium Phosphorus Magnesium C-Reactive Protein 01/28/20 01/28/20 06:50 06:50 WBC 4.3 RBC 2.69 L Hgb 7.6 L Hct 23.3 L D MCV 86.5 MCH 28.2 MCHC 32.6 RDW 16.3 H Plt Count 286 MPV 7.8 Haptoglobin Sodium 141 Potassium 4.1 Chloride 109 H Carbon Dioxide 27 Anion Gap 5 L BUN 9.7 Creatinine 0.7 Est GFR (CKD-EPI)AfAm 107.62 Est GFR (CKD-EPI)NonAf 92.86 POC Glucometer Random Glucose 106 Calcium 8.1 L Phosphorus 3.2 Magnesium 1.8 C-Reactive Protein Active Medications Generic Name Dose Route Start Last Admin Trade Name Fresahil PRN Reason Stop Dose Admin Atorvastatin Calcium 10 mg 01/24/20 22:00 01/27/20 21:26 Lipitor - PO 10 mg HS PARESH Administration Buprenorphine/Naloxone 2 each 01/24/20 14:00 01/28/20 10:46 Suboxone 2 Mg/0.5 Mg Film Packet SL 01/31/20 23:59 2 each DAILY PARESH Administration Buspirone HCl 15 mg 01/23/20 22:00 01/28/20 10:46 Buspar - PO 15 mg BID PARESH Administration Escitalopram Oxalate 10 mg 01/24/20 10:00 01/28/20 10:46 Lexapro - PO 10 mg DAILY PARESH Administration Heparin Sodium (Porcine) 5,000 unit 01/23/20 22:00 01/28/20 05:53 Heparin - SQ 5,000 unit TID PARESH Administration Insulin Aspart 1 vial 01/23/20 22:00 01/28/20 06:04 Novolog Vial Sliding Scale - SQ Not Given ACHS [facility] Protocol Nicotine 14 mg 01/25/20 15:15 01/28/20 10:46 Nicoderm Patch - TD 14 mg DAILY PARESH Administration Polyethylene Glycol 17 gm 01/27/20 21:31 01/28/20 10:45 Miralax (For Daily Use) - PO 17 grams DAILY PARESH Administration Potassium Phos/Sodium Phos 1 packet 01/23/20 22:00 01/28/20 10:46 Phos-Nak Packet - PO 1 packet BID PARESH Administration Quetiapine Fumarate 150 mg 01/23/20 22:00 01/27/20 21:26 Seroquel - PO 150 mg HS PARESH Administration Trazodone HCl 150 mg 01/24/20 22:00 01/27/20 21:25 Desyrel - PO 150 mg HS PARESH Administration ASSESSMENT/PLAN: Pt. is a 64 y.o. F w/ PMHx. of HTN, "Psychiatric problems," and polysubstance abuse presents from Detox at [facility] for hypotension. We are called to assess for anemia and thrombocytopenia. Dispo: We will continue to follow the patient. Thank you for this consultative opportunity. Visit type - Emergency Visit Emergency Visit: Yes ED Registration Date: 01/23/20 Care time: The patient presented to the Emergency Department on the above date and was hospitalized for further evaluation of their emergent condition. - New Patient This patient is new to me today: Yes Date on this admission: 01/28/20 - Critical Care Critical Care patient: No ATTENDING PHYSICIAN STATEMENT I saw and evaluated the patient. I reviewed the resident's note and discussed the case with the resident. I agree with the resident's findings and plan as documented. SUBJECTIVE: OBJECTIVE: ASSESSMENT AND PLAN:
--- NOTE | 2020-01-28 11:30 | CON.CARD ---
Consult Consult Specialty:: Cardiology Reason for Consultation:: Moderate pericardial effusion - History of Present Illness Chief Complaint: Hypotension History of Present Illness: This is a 64 year old with a psychiatric history and substance abuse heroin /cocaine. She presented from [facility] with hypertension. BP was 61/40 mmHg and then 91/67 mmHg in the ED. She reports poor PO intake and weight loss. EKG showed NSR at 93 BPM with normal intervals, normal axis, and NSSTTW changes. Echocardiogram 01/27/2020 showed NL LV function, and a moderate pericardial effusion. - Past Medical History Cardio/Vascular: Yes: HTN, Hyperlipdemia Psych: Yes: Anxiety, Bipolar, Schizophrenia Endocrine: Yes: Diabetes Mellitus - Past Surgical History Past Surgical History: Yes: - Alcohol/Substance Use Hx Alcohol Use: No History of Substance Use: reports: Cocaine, Heroin Date of Last Use: 01/09/20 - Smoking History Smoking history: Former smoker Have you smoked in the past 12 months: Yes Aproximately how many cigarettes per day: 10 - Social History ADL: Independent Occupation: retired, on SSI History of Recent Travel: No Home Medications - Allergies Allergies/Adverse Reactions: Allergies Allergy/AdvReac Type Severity Reaction Status Date / Time No Known Allergies Allergy Verified 01/10/20 13:13 - Home Medications Home Medications: Ambulatory Orders Buspirone HCl [Buspar -] 15 mg PO BID 01/10/20 Escitalopram Oxalate [Lexapro -] 10 mg PO DAILY 01/10/20 Quetiapine Fumarate [Seroquel -] 300 mg PO HS 01/10/20 Lisinopril 20 mg PO DAILY 01/23/20 Lovastatin [Altoprev] 20 mg PO DAILY 01/23/20 Metformin HCl [Glucophage] 500 mg PO BID 01/23/20 Metoprolol Succinate 25 mg PO DAILY 01/23/20 Trazodone HCl 150 mg PO HS 01/23/20 Vital Signs: Vital Signs Temperature 98.6 F 01/28/20 10:00 Pulse Rate 87 01/28/20 10:00 Respiratory Rate 18 01/28/20 10:00 Blood Pressure 102/65 01/28/20 10:00 O2 Sat by Pulse Oximetry (%) 100 01/28/20 09:00 Constitutional: Yes: No Distress Eyes: Yes: WNL HENT: Yes: WNL Neck: Yes: WNL Respiratory: Yes: CTA Bilaterally Gastrointestinal: Yes: Soft Cardiovascular: Yes: Regular Rate and Rhythm Heart Sounds: Yes: S1, S2 Murmur: No: Systolic Murmur Edema: No Neurological: Yes: Alert - Other Data Labs, Other Data: CBC, BMP 01/28/20 06:50 01/28/20 06:50 INR, PTT INR 0.87 (0.83-1.09) 01/23/20 14:15 Assessment/Plan 64 year old with a psychiatric history and substance abuse heroin/cocaine. She presented from [facility] with hypertension. BP was 61/40 mmHg and then 91/67 mmHg in the ED. She reports poor PO intake and weight loss. EKG showed NSR at 93 BPM with normal intervals, normal axis, and NSSTTW changes. Echocardiogram 01/27/2020 showed NL LV function, and a moderate pericardial effusion. Pericardial Effusion: I reviewed the echocardiogram There is a moderate pericardial effusion but no RA or RV diastolic collapse ESR is 31 and C-reative protein is 0.9 which are low numbers for pericarditis HCT is 23% Her vitals have improved with hydration and she is not does not have tachycardia Hold lisinopril and metoprolol for now I would repeat the echocardiogram either tomorrow or the next day to see if there is progression or resolution of the pericardial effusion Monitor vitals
--- NOTE | 2020-01-28 15:37 | PN ---
Teaching Attending Note Name of Resident: Loco Izquierdo ATTENDING PHYSICIAN STATEMENT I saw and evaluated the patient. I reviewed the resident's note and discussed the case with the resident. I agree with the resident's findings and plan as documented. SUBJECTIVE: Seen and examined at bedside. Patient reports she is starting to feel better. Blood pressure and creatinine improving. Will start Venofer and repeat echocardiogram tomorrow to follow-up pericardial effusion. OBJECTIVE: Last Vital Signs Temp Pulse Resp BP Pulse Ox 98.7 F 93 H 18 104/68 100 01/28/20 14:44 01/28/20 14:44 01/28/20 14:44 01/28/20 14:44 01/28/20 09:00 PE: per resident note Labs/Imaging: reviewed ASSESSMENT AND PLAN: 64 year old female with HTN, DM 2, HLD, multiple psychiatric problems, cocaine/heroine abuse sent to the ED from from [facility] for hypotension. Last heroin use > 2 weeks ago. She was undergoing Detox at [facility] receiving Suboxone. #Hypotension: resolved -2/2 dehydration improved w/fluids #prerenal MAVIS: resolved Renal US - mild bilateral hydronephrosis Renal function improved with IV hydration. Urology out-patient follow up for repeat renal imaging. # Substance Abuse - Cocaine/Heroin Addiction Medicine consulted - recommend continuing on Suboxone. In light of cocaine use history and mild Cardiomegaly on CXR, Echo was ordered - shows EF 65%. # Moderate Pericardial Effusion on Echo, - no signs of tamponade. -Cardiology consulted: repeat echo tomorrow to check progression # HTN - Lisinopril and Metoprolol discontinued due to borderline BP. # DM 2 - Metformin held -JENNIFER # Multiple Psychiatric Disorders - continue home Buspirone, Lexapro, Seroquel, Trazodone. # Normocytic Anemia likely 2/2 anemia of chronic disease and iron deficiency anemia -iron saturation 16%. Give IV venofer as inpt and d/c on oral iron -f/u with heme as outpatient: pt refused inpt consult # Severe Protein Calorie Malnutrition - Glucerna and ensure supplementation. DVT Px - Heparin SQ
[2020-01-28] MEDS ORDERED: IRON SUCROSE INJECTION 200 MG in SODIUM CHLORIDE 90 ML IVPB ONE (16:11)
[2020-01-28 16:14] LABS: HEMOGLOBIN 7.6 GM/dL (10.7-15.3); MCH 27.3 pg (25.7-33.7); MCHC 31.7 g/dl (32.0-36.0); MEAN CELL VOLUME 86.1 fl (80-96); MEAN PLT VOLUME 7.8 fl (7.5-11.1); PLATELET COUNT 321 K/MM3 (134-434); RBC 2.79 M/mm3 (3.60-5.2); RDW 15.9 % (11.6-15.6); WHITE BLOOD COUNT 5.7 K/mm3 (4.0-10.0)
[2020-01-28] MEDS: DOCUSATE SODIUM 100 MG CAPSULE (FP) PO SCH (17:28)
--- NOTE | 2020-01-28 17:35 | PN ---
Physical Exam: SUBJECTIVE: Patient was seen and examined at bedside. Patient reports some mild colicky tenderness of her abdomen in the right and left lower quadrants. The pain comes and goes and she describes it as feeling tender. The pain is worse on palpation. The patient reports having passed her first stool that morning, as she has not passed stool in a week and a half due to constipation. The patient denies blood in the stool, fever/chills, dysuria, or shortness of breath. The patient reports that her lack of appetite on admission is gone, and she is eating. OBJECTIVE: Vital Signs Period Temp Pulse Resp BP Sys/Alfaro Pulse Ox Last 24 Hr 98.4 F-99 F 87-93 18-20 102-122/44-68 99-100 GENERAL: The patient is awake, alert, and fully oriented, in no acute distress. HEAD: Normal with no signs of trauma. EYES: Extraocular movements intact. No ptosis. ENT: Ears normal, nares patent, moist mucous membranes. NECK: Trachea midline, full range of motion, supple. LUNGS: Breath sounds equal, clear to auscultation bilaterally, no wheezes, no crackles, no accessory muscle use. HEART: Regular rate and rhythm, S1, S2 without murmur, rub or gallop. ABDOMEN: Mild tenderness on palpation of right and left lower quadrants. Soft, nondistended, normoactive bowel sounds, no guarding, no rebound, no masses. EXTREMITIES: 2+ pulses, warm, well-perfused, no edema. NEUROLOGICAL: Normal speech, gait not observed. PSYCH: Normal mood, normal affect. SKIN: Warm, dry, normal turgor, no rashes or lesions noted Laboratory Results - last 24 hr 01/27/20 01/28/20 01/28/20 20:58 06:00 06:50 WBC 4.3 RBC 2.69 L Hgb 7.6 L Hct 23.3 L D MCV 86.5 MCH 28.2 MCHC 32.6 RDW 16.3 H Plt Count 286 MPV 7.8 Sodium Potassium Chloride Carbon Dioxide Anion Gap BUN Creatinine Est GFR (CKD-EPI)AfAm Est GFR (CKD-EPI)NonAf POC Glucometer 90 90 Random Glucose Calcium Phosphorus Magnesium Stool Occult Blood 01/28/20 01/28/20 01/28/20 06:50 12:30 14:45 WBC 5.7 RBC 2.79 L Hgb 7.6 L Hct 24.0 L MCV 86.1 MCH 27.3 MCHC 31.7 L RDW 15.9 H Plt Count 321 MPV 7.8 Sodium 141 Potassium 4.1 Chloride 109 H Carbon Dioxide 27 Anion Gap 5 L BUN 9.7 Creatinine 0.7 Est GFR (CKD-EPI)AfAm 107.62 Est GFR (CKD-EPI)NonAf 92.86 POC Glucometer Random Glucose 106 Calcium 8.1 L Phosphorus 3.2 Magnesium 1.8 Stool Occult Blood Negative 01/28/20 16:07 WBC RBC Hgb Hct MCV MCH MCHC RDW Plt Count MPV Sodium Potassium Chloride Carbon Dioxide Anion Gap BUN Creatinine Est GFR (CKD-EPI)AfAm Est GFR (CKD-EPI)NonAf POC Glucometer 123 Random Glucose Calcium Phosphorus Magnesium Stool Occult Blood Active Medications Generic Name Dose Route Start Last Admin Trade Name Freq PRN Reason Stop Dose Admin Atorvastatin Calcium 10 mg 01/24/20 22:00 01/27/20 21:26 Lipitor - PO 10 mg HS PARESH Administration Buprenorphine/Naloxone 2 each 01/24/20 14:00 01/28/20 10:46 Suboxone 2 Mg/0.5 Mg Film Packet SL 01/31/20 23:59 2 each DAILY PARESH Administration Buspirone HCl 15 mg 01/23/20 22:00 01/28/20 10:46 Buspar - PO 15 mg BID PARESH Administration Docusate Sodium 100 mg 01/28/20 17:00 Colace - PO DAILY PARESH Escitalopram Oxalate 10 mg 01/24/20 10:00 01/28/20 10:46 Lexapro - PO 10 mg DAILY PARESH Administration Heparin Sodium (Porcine) 5,000 unit 01/23/20 22:00 01/28/20 13:50 Heparin - SQ 5,000 unit TID PARESH Administration Insulin Aspart 1 vial 01/23/20 22:00 01/28/20 16:08 Novolog Vial Sliding Scale - SQ Not Given ACHS [facility] Protocol Nicotine 14 mg 01/25/20 15:15 01/28/20 10:46 Nicoderm Patch - TD 14 mg DAILY PARESH Administration Polyethylene Glycol 17 gm 01/27/20 21:31 01/28/20 10:45 Miralax (For Daily Use) - PO 17 grams DAILY PARESH Administration Potassium Phos/Sodium Phos 1 packet 01/23/20 22:00 07/07/20 10:46 Phos-Nak Packet - PO 1 packet BID PARESH Administration Quetiapine Fumarate 150 mg 01/23/20 22:00 01/27/20 21:26 Seroquel - PO 150 mg HS PARESH Administration Senna 1 tab 01/28/20 22:00 Senna - PO HS PARESH Trazodone HCl 150 mg 01/24/20 22:00 01/27/20 21:25 Desyrel - PO 150 mg HS PARESH Administration ASSESSMENT/PLAN: 64 year old female patient with past medical history that includes c ocaine/heroin abuse with last heroin use > 2 weeks ago, multiple psychiatric problems, HTN, HLD, DM, who presented to the ED from [facility] with hypotension. 1. Hypotension with MAVIS 2/2 Dehydration - Patient was given IV fluids - MAVIS resolved, as creatinine was 2.9 on admission and decreased to 0.8 on 01/24 - Diastolic blood pressure occasionally low, going down to 109/44 today and 88/60 yesterday. 2. Normocytic Anemia possibly secondary to chronic inflammation - Hgb 7.6 today - Iron 26, TIBC 156, Iron Sat 16, Ferritin 167 - Stool Occult Blood negative - Patient given Venofer - Following CBC 3. Pericardial Effusion on ECHO - Cardiology following - Will be repeating the ECHO tomorrow 4. Constipation - Patient reports colicky right and left lower quadrant pain that is worse on palpation - Patient is on Docusate and Miralax and Senna - Patient had a bowel movement today 5. Severe Protein-Calorie Malnutrition - Patient has a BMI of 14.4 - Patient is on a regular diet - Patient reported that her previous lack of appetite is gone and she is eating 6. HLD - Patient is on Atorvastatin 7. Type 2 Diabetes - Patient is on Novolog Sliding Scale 8. Hx of Multiple Psychiatric Problems - Patient is on Buspirone, Escitalopram, Quetiapine 9. Cocaine/heroin abuse - Patient is on Buprenorphine/Naloxone DVT Px - Heparin SQ Visit type - Emergency Visit Emergency Visit: Yes ED Registration Date: 01/23/20 Care time: The patient presented to the Emergency Department on the above date and was hospitalized for further evaluation of their emergent condition. - New Patient This patient is new to me today: No - Critical Care Critical Care patient: No ATTENDING PHYSICIAN STATEMENT I saw and evaluated the patient. I reviewed the resident's note and discussed the case with the resident. I agree with the resident's findings and plan as documented. SUBJECTIVE: OBJECTIVE: ASSESSMENT AND PLAN:
--- NOTE | 2020-01-28 18:20 | PN ---
Teaching Attending Note Name of Resident: Brent Aguilar ATTENDING PHYSICIAN STATEMENT I saw and evaluated the patient. I reviewed the resident's note and discussed the case with the resident. I agree with the resident's findings and plan as documented. 64 y/o lady with polysubstance abuse presented from detox center due to hypotension. Hematology consulted due to anemia. Recommend: 1) Transferrin saturation 16.67%. Received IV Iron 2) Consider GI evaluation. ? Upper endoscopy. Pt mentioned recent colonoscopy. 3) R/O vaginal bleed. F/U routine tests, PAP, etc. 4) Repeat UA. 5) If Hb continue to drop and low BP consider CT CAP to r/o occult bleeding but no evidence so far. Hemodilutional component cannot be ruled out if significant IVF replacement. 6) Please see Dr. Aguilar's note for details 7) Thank you very much for this consultation
--- NOTE | 2020-01-28 19:35 | PN ---
Progress Note, Physician History of Present Illness: Pt seen and examined at bedside. She is awake and alert. She denies shortness of breath. - Current Medication List Current Medications: Active Medications Atorvastatin Calcium (Lipitor -) 10 mg PO HS [facility] Last Admin: 01/27/20 21:26 Dose: 10 mg Documented by: Buprenorphine/Naloxone (Suboxone 2 Mg/0.5 Mg Film Packet) 2 each SL DAILY [facility] Stop: 01/31/20 23:59 Last Admin: 01/28/20 10:46 Dose: 2 each Documented by: Buspirone HCl (Buspar -) 15 mg PO BID [facility] Last Admin: 01/28/20 10:46 Dose: 15 mg Documented by: Docusate Sodium (Colace -) 100 mg PO DAILY [facility] Last Admin: 01/28/20 17:28 Dose: 100 mg Documented by: Escitalopram Oxalate (Lexapro -) 10 mg PO DAILY [facility] Last Admin: 01/28/20 10:46 Dose: 10 mg Documented by: Heparin Sodium (Porcine) (Heparin -) 5,000 unit SQ TID [facility] Last Admin: 01/28/20 13:50 Dose: 5,000 unit Documented by: Insulin Aspart (Novolog Vial Sliding Scale -) 1 vial SQ [facility]; Protocol Last Admin: 01/28/20 16:08 Dose: Not Given Documented by: Nicotine (Nicoderm Patch -) 14 mg TD DAILY [facility] Last Admin: 01/28/20 10:46 Dose: 14 mg Documented by: Polyethylene Glycol (Miralax (For Daily Use) -) 17 gm PO DAILY [facility] Last Admin: 01/28/20 10:45 Dose: 17 grams Documented by: Potassium Phos/Sodium Phos (Phos-Nak Packet -) 1 packet PO BID [facility] Last Admin: 01/28/20 10:46 Dose: 1 packet Documented by: Quetiapine Fumarate (Seroquel -) 150 mg PO HS [facility] Last Admin: 01/27/20 21:26 Dose: 150 mg Documented by: Senna (Senna -) 1 tab PO HS [facility] Trazodone HCl (Desyrel -) 150 mg PO HS [facility] Last Admin: 01/27/20 21:25 Dose: 150 mg Documented by: - Objective Vital Signs: Vital Signs Temperature 98.8 F 01/28/20 18:00 Pulse Rate 106 H 01/28/20 18:00 Respiratory Rate 18 01/28/20 18:38 Blood Pressure 121/67 01/28/20 18:00 O2 Sat by Pulse Oximetry (%) 99 01/28/20 18:38 Constitutional: Yes: Calm Eyes: Yes: Conjunctiva Clear HENT: Yes: Atraumatic Neck: Yes: Supple Cardiovascular: Yes: S1, S2 Respiratory: Yes: CTA Bilaterally Gastrointestinal: Yes: Soft Genitourinary: Yes: WNL Musculoskeletal: Yes: WNL Edema: No Neurological: Yes: Oriented Psychiatric: Yes: Oriented Labs: CBC, BMP 01/28/20 14:45 01/28/20 06:50 INR, PTT INR 0.87 (0.83-1.09) 01/23/20 14:15 Problem List - Problems (1) MAVIS (acute kidney injury) Code(s): N17.9 - ACUTE KIDNEY FAILURE, UNSPECIFIED (2) Cocaine use disorder Code(s): F14.10 - COCAINE ABUSE, UNCOMPLICATED (3) Opioid dependence Code(s): F11.20 - OPIOID DEPENDENCE, UNCOMPLICATED Assessment/Plan Current Medications Generic Name Dose Route Start Last Admin Trade Name Saw PRN Reason Stop Dose Admin Atorvastatin Calcium 10 mg 01/24/20 22:00 01/27/20 21:26 Lipitor - PO 10 mg HS [facility] Administration Buprenorphine/Naloxone 2 each 01/24/20 14:00 01/28/20 10:46 Suboxone 2 Mg/0.5 Mg Film Packet SL 01/31/20 23:59 2 each DAILY [facility] Administration Buspirone HCl 15 mg 01/23/20 22:00 01/28/20 10:46 Buspar - PO 15 mg BID [facility] Administration Docusate Sodium 100 mg 01/28/20 17:00 01/28/20 17:28 Colace - PO 100 mg DAILY [facility] Administration Escitalopram Oxalate 10 mg 01/24/20 10:00 01/28/20 10:46 Lexapro - PO 10 mg DAILY [facility] Administration Heparin Sodium (Porcine) 5,000 unit 01/23/20 22:00 01/28/20 13:50 Heparin - SQ 5,000 unit TID [facility] Administration Insulin Aspart 1 vial 01/23/20 22:00 01/28/20 16:08 Novolog Vial Sliding Scale - SQ Not Given ACHS [facility] Protocol Nicotine 14 mg 01/25/20 15:15 01/28/20 10:46 Nicoderm Patch - TD 14 mg DAILY [facility] Administration Polyethylene Glycol 17 gm 01/27/20 21:31 01/28/20 10:45 Miralax (For Daily Use) - PO 17 grams DAILY [facility] Administration Potassium Phos/Sodium Phos 1 packet 01/23/20 22:00 01/28/20 10:46 Phos-Nak Packet - PO 1 packet BID [facility] Administration Quetiapine Fumarate 150 mg 01/23/20 22:00 01/27/20 21:26 Seroquel - PO 150 mg HS [facility] Administration Senna 1 tab 01/28/20 22:00 Senna - PO HS [facility] Trazodone HCl 150 mg 01/24/20 22:00 01/27/20 21:25 Desyrel - PO 150 mg HS [facility] Administration Impression 1. MAVIS 2. possible hydro 3. hypophos 4. hypotension 5. multi drug abuse Plan - bp is improved, she was hypotensive yesterday - renal function stable - phos levels improved - can d/c phos supplements - avoid nsaids - will follow PRN
[2020-01-28 21:20] LABS: HEMATOCRIT 24.5 % (32.4-45.2); HEMOGLOBIN 7.8 GM/dL (10.7-15.3); MCH 27.8 pg (25.7-33.7); MEAN CELL VOLUME 86.8 fl (80-96); MEAN PLT VOLUME 7.9 fl (7.5-11.1); PLATELET COUNT 316 K/MM3 (134-434); RBC 2.82 M/mm3 (3.60-5.2); WHITE BLOOD COUNT 5.3 K/mm3 (4.0-10.0)
[2020-01-28] MEDS ORDERED: SENNOSIDES 8.6MG TABLET (FP) PO SCH (22:00)
[2020-01-28] MEDS: QUEtiapine FUMARATE 50 MG TABLET PO SCH (22:21)
[2020-01-28] MEDS: ATORVASTATIN CA 10 MG TABLET (FP) PO SCH (22:21)
[2020-01-28] MEDS: traZODone HCL 50 MG TABLET (FP) PO SCH (22:22)
[2020-01-29] MEDS: INSULIN SLIDING SCALE (NOVOLOG) 1 VIAL SQ SCH ×3 (06:51→16:47)
[2020-01-29] MEDS: HEPARIN NA (PORCINE) 5,000 UNITS/ML 1ML VIAL SQ SCH ×2 (06:51→15:05)
[2020-01-29 07:39] LABS: HEMATOCRIT 22.6 % (32.4-45.2); HEMOGLOBIN 7.2 GM/dL (10.7-15.3); MCH 27.5 pg (25.7-33.7); MCHC 31.7 g/dl (32.0-36.0); MEAN CELL VOLUME 86.6 fl (80-96); MEAN PLT VOLUME 7.1 fl (7.5-11.1); PLATELET COUNT 302 K/MM3 (134-434); RBC 2.61 M/mm3 (3.60-5.2)
[2020-01-29 08:08] LABS: BLOOD UREA NITROGEN 10.6 mg/dL (7-18); CALCIUM 8.6 mg/dL (8.5-10.1); CREATININE 0.8 mg/dL (0.55-1.3); MAGNESIUM 2.1 mg/dL (1.8-2.4); PHOSPHOROUS 4.5 mg/dL (2.5-4.9); POTASSIUM 4.4 mmol/L (3.5-5.1)
[2020-01-29] MEDS: ESCITALOPRAM OXALATE 10 MG TABLET PO SCH (10:30)
[2020-01-29] MEDS: DOCUSATE SODIUM 100 MG CAPSULE (FP) PO SCH (10:30)
[2020-01-29] MEDS: busPIRone HCL 5 MG TABLET PO SCH (10:30)
[2020-01-29] MEDS: NICOTINE 14 MG/24 HOURS TOPICAL PATCH TD SCH (10:30)
[2020-01-29] MEDS: NAPH,MB-DB/K PH,MBDB POWDER PACKET PO SCH (10:30)
--- NOTE | 2020-01-29 11:15 | PN ---
Progress Note, Physician Chief Complaint: No new complaints History of Present Illness: This is a 64 year old with a psychiatric history and substance abuse heroin/cocaine. She presented from [facility] with hypertension. BP was 61/40 mmHg and then 91/67 mmHg in the ED. She reports poor PO intake and weight loss. EKG showed NSR at 93 BPM with normal intervals, normal axis, and NSSTTW changes. Echocardiogram 01/27/2020 showed NL LV function, and a moderate pericardial effusion. Repeat Echocardiogram 01/29/2020 Effusion is now small. - Current Medication List Current Medications: Active Medications Atorvastatin Calcium (Lipitor -) 10 mg PO HS [facility] Last Admin: 01/28/20 22:21 Dose: 10 mg Documented by: Buprenorphine/Naloxone (Suboxone 2 Mg/0.5 Mg Film Packet) 2 each SL DAILY [facility] Stop: 01/31/20 23:59 Last Admin: 01/28/20 10:46 Dose: 2 each Documented by: Buspirone HCl (Buspar -) 15 mg PO BID [facility] Last Admin: 01/29/20 10:30 Dose: 15 mg Documented by: Docusate Sodium (Colace -) 100 mg PO DAILY [facility] Last Admin: 01/29/20 10:30 Dose: 100 mg Documented by: Escitalopram Oxalate (Lexapro -) 10 mg PO DAILY [facility] Last Admin: 01/29/20 10:30 Dose: 10 mg Documented by: Heparin Sodium (Porcine) (Heparin -) 5,000 unit SQ TID [facility] Last Admin: 01/29/20 06:51 Dose: Not Given Documented by: Insulin Aspart (Novolog Vial Sliding Scale -) 1 vial SQ [facility]; Protocol Last Admin: 01/29/20 06:51 Dose: Not Given Documented by: Nicotine (Nicoderm Patch -) 14 mg TD DAILY [facility] Last Admin: 01/29/20 10:30 Dose: 14 mg Documented by: Polyethylene Glycol (Miralax (For Daily Use) -) 17 gm PO DAILY [facility] Last Admin: 01/28/20 10:45 Dose: 17 grams Documented by: Potassium Phos/Sodium Phos (Phos-Nak Packet -) 1 packet PO BID [facility] Last Admin: 01/29/20 10:30 Dose: 1 packet Documented by: Quetiapine Fumarate (Seroquel -) 150 mg PO HS [facility] Last Admin: 01/28/20 22:21 Dose: 150 mg Documented by: Senna (Senna -) 1 tab PO HS [facility] Last Admin: 01/28/20 22:21 Dose: 1 tab Documented by: Trazodone HCl (Desyrel -) 150 mg PO [facility] Last Admin: 01/28/20 22:22 Dose: 150 mg Documented by: - Objective Vital Signs: Vital Signs Temperature 98.1 F 01/29/20 10:00 Pulse Rate 83 01/29/20 10:00 Respiratory Rate 20 01/29/20 10:00 Blood Pressure 126/73 01/29/20 10:00 O2 Sat by Pulse Oximetry (%) 99 01/28/20 21:00 Constitutional: Yes: No Distress Eyes: Yes: WNL HENT: Yes: WNL Neck: Yes: WNL Cardiovascular: Yes: Regular Rate and Rhythm, S1, S2 Respiratory: Yes: CTA Bilaterally Gastrointestinal: Yes: Soft Edema: No Labs: CBC, BMP 01/29/20 07:15 01/29/20 07:15 INR, PTT INR 0.87 (0.83-1.09) 01/23/20 14:15 Assessment/Plan 64 year old with a psychiatric history and substance abuse heroin/cocaine. She presented from [facility] with hypertension. BP was 61/40 mmHg and then 91/67 mmHg in the ED. She reports poor PO intake and weight loss. EKG showed NSR at 93 BPM with normal intervals, normal axis, and NSSTTW changes. Echocardiogram 01/27/2020 showed NL LV function, and a moderate pericardial effusion. Pericardial Effusion: I reviewed the echocardiogram There is a moderate pericardial effusion but no RA or RV diastolic collapse ESR is 31 and C-reative protein is 0.9 which are low numbers for pericarditis HCT is 23% Her vitals have improved with hydration and she is not does not have tachycardia Hold lisinopril and metoprolol for now Repeat echocardiogram to see if there is progression or resolution of the pericardial effusion is ordered Monitor vitals Repeat Echocardiogram 01/29/2020 Effusion is now small.
[2020-01-29] MEDS: BUPRENORPHINE/NALOXONE 2 MG/0.5 MG FILM PACKET SL SCH (11:40)
[2020-01-29] MEDS: POLYETHYLENE GLYCOL 3350 119 GM BTL PO SCH (11:40)
--- NOTE | 2020-01-29 13:04 | ECHO ---
Version: 1 Name: VERONICA SOTELO Exam: Adult Echocardiogram Study Date: 01/29/2020, 9:32 AM Age: 64 Years Doppler Measurements & Calculations TR max lloyd: 267.9 cm/sec TR max P.4 mmHg Left Ventricle The left ventricle is normal in size. There is mild concentric left ventricular hypertrophy. Left ve ntricular systolic function is normal. Ejection Fraction = 65%. The transmitral spectral Doppler flow pattern is suggestive of impaired LV relaxation. Right Ventricle The right ventricle is mildly dilated. The right ventricular systolic function is mildly reduced. Atria Normal left and right atrial size and function. Mitral Valve The mitral valve is grossly normal. There is mild mitral regurgitation. Tricuspid Valve The tricuspid valve is not well visualized, but is grossly normal. There is moderate tricuspid regur gitation. Aortic Valve The aortic valve is normal in structure and function. Pulmonic Valve The pulmonic valve is not well visualized. Great Vessels The aortic root is normal size. Normal aortic arch, descending and ascending aorta. Pericardium/Pleura Small pericardial effusion. Tech Comments LIMITED STUDY. Summary Statements The left ventricle is normal in size. There is mild concentric left ventricular hypertrophy. Left ventricular systolic function is normal. Ejection Fraction = 65%. The transmitral spectral Doppler flow pattern is suggestive of impaired LV relaxation. The right ventricle is mildly dilated. The right ventricular systolic function is mildly reduced. Normal left and right atrial size and function. The mitral valve is grossly normal. There is mild mitral regurgitation. The tricuspid valve is not well visualized, but is grossly normal. There is moderate tricuspid regurgitation. The aortic valve is normal in structure and function. The pulmonic valve is not well visualized. The aortic root is normal size. Normal aortic arch, descending and ascending aorta Small pericardial effusion. José Antonio 01/29/2020, 1:04 PM [facility] Ordering Physician: Mir Coronado Referring Physician: FRANKI Performed By: Jonelle Johnson
--- NOTE | 2020-01-29 14:58 | PN ---
Teaching Attending Note Name of Resident: Loco Izquierdo ATTENDING PHYSICIAN STATEMENT I saw and evaluated the patient. I reviewed the resident's note and discussed the case with the resident. I agree with the resident's findings and plan as documented. SUBJECTIVE: Seen and examined at bedside. No complaints. Repeat echocardiogram shows "smal l pericardial effusion." Will discuss further treatment plans with cardiology. OBJECTIVE: Last Vital Signs Temp Pulse Resp BP Pulse Ox 98.1 F 83 20 126/73 97 01/29/20 10:01/29/20 10:01/29/20 10:01/29/20 10:01/29/20 09:00 PE: per resident note Labs/Imaging: reviewed ASSESSMENT AND PLAN: 64 year old female with HTN, DM 2, HLD, multiple psychiatric problems, cocaine/heroine abuse sent to the ED from from [facility] for hypotension. Last heroin use > 2 weeks ago. She was undergoing Detox at [facility] receiving Suboxone. #Hypotension: resolved -2/2 dehydration improved w/fluids #prerenal MAVIS: resolved Renal US - mild bilateral hydronephrosis Renal function improved with IV hydration. Urology out-patient follow up for repeat renal imaging. # Substance Abuse - Cocaine/Heroin Addiction Medicine consulted - recommend continuing on Suboxone. In light of cocaine use history and mild Cardiomegaly on CXR, Echo was ordered - shows EF 65%. # Moderate Pericardial Effusion on Echo, Repeat shows "small" pericardial effusion but does not compare to previous -will discuss case with cardio regarding further management # HTN - Lisinopril and Metoprolol discontinued due to borderline BP. # DM 2 - Metformin held -JENNIFER # Multiple Psychiatric Disorders - continue home Buspirone, Lexapro, Seroquel, Trazodone. # Normocytic Anemia likely 2/2 anemia of chronic disease and iron deficiency anemia -iron saturation 16%. Give IV venofer as inpt and d/c on oral iron -f/u with heme as outpatient: pt refused inpt consult # Severe Protein Calorie Malnutrition - Glucerna and ensure supplementation. DVT Px - Heparin SQ Dispo: pending cardiology evaluation of repeat echo
--- NOTE | 2020-01-29 16:52 | DS ---
Physical Exam: SUBJECTIVE: Patient seen and examined at bedside. The patient reports some mild colicky tenderness of her abdomen in the right and left quadrants. She was able to pass stool yesterday after what she described as "a week and a half" of not passing stool. The patient denies blood in stool, fever/chills, dysuria, or shortness of breath. The patient also reports that her lack of appetite on admission has since gone, and she is now a lot hungrier and eating. Per phone conversation with Dr. Parmar, patient should hold lisinopril and metoprolol until f/u with outpatient doctor. Dr. Parmar okay with discharge to [facility] as pericardial effusion reduced from moderate to small on repeat ECHO. OBJECTIVE: Vital Signs Period Temp Pulse Resp BP Sys/Alfaro Pulse Ox Last 24 Hr 98.1 F-99.3 F 83-106 18-20 109-129/55-73 97-99 PHYSICAL EXAM GENERAL: The patient is awake, alert, and fully oriented, in no acute distress. HEAD: Normal with no signs of trauma. EYES: Extraocular movements intact. ENT: Ears normal, nares patent, oropharynx clear without exudates, moist mucous membranes. NECK: Trachea midline, full range of motion, supple. LUNGS: Breath sounds equal, clear to auscultation bilaterally, no wheezes, no crackles, no accessory muscle use. HEART: Regular rate and rhythm, S1, S2 without murmur, rub or gallop. ABDOMEN: Soft, tender to palpation in right upper and right lower quadrants, nondistended, normoactive bowel sounds, no guarding, no rebound, no masses. EXTREMITIES: 2+ pulses, warm, well-perfused, no edema. NEUROLOGICAL: Normal speech, gait not observed. PSYCH: Normal mood, normal affect. SKIN: Warm, dry, normal turgor, no rashes or lesions noted. LABS Laboratory Results - last 24 hr 01/28/20 01/28/20 01/29/20 20:30 20:34 06:14 WBC 5.3 RBC 2.82 L Hgb 7.8 L Hct 24.5 L MCV 86.8 MCH 27.8 MCHC 32.0 RDW 16.0 H Plt Count 316 MPV 7.9 Sodium Potassium Chloride Carbon Dioxide Anion Gap BUN Creatinine Est GFR (CKD-EPI)AfAm Est GFR (CKD-EPI)NonAf POC Glucometer 116 99 Random Glucose Calcium Phosphorus Magnesium 01/29/20 01/29/20 01/29/20 07:15 07:15 11:42 WBC 4.0 RBC 2.61 L Hgb 7.2 L Hct 22.6 L MCV 86.6 MCH 27.5 MCHC 31.7 L RDW 16.0 H Plt Count 302 MPV 7.1 L D Sodium 142 Potassium 4.4 Chloride 109 H Carbon Dioxide 26 Anion Gap 7 L BUN 10.6 Creatinine 0.8 Est GFR (CKD-EPI)AfAm 91.58 Est GFR (CKD-EPI)NonAf 79.01 POC Glucometer 153 Random Glucose 103 Calcium 8.6 Phosphorus 4.5 Magnesium 2.1 01/29/20 16:08 WBC RBC Hgb Hct MCV MCH MCHC RDW Plt Count MPV Sodium Potassium Chloride Carbon Dioxide Anion Gap BUN Creatinine Est GFR (CKD-EPI)AfAm Est GFR (CKD-EPI)NonAf POC Glucometer 120 Random Glucose Calcium Phosphorus Magnesium HOSPITAL COURSE: Date of Admission:01/23/20 64 year old female with HTN, DM 2, HLD, multiple psychiatric problems, cocaine/heroine abuse sent to the ED from [facility] for hypotension. Last heroin use > 2 weeks ao. She was undergoing Detox at [facility] receiving Suboxone. Hypotension resolved with fluids. A renal ultrasound found mild bilateral hydronephrosis. A prerenal MAVIS secondary to the dehydration resolved with the IV fluids as well. A moderate pericardial effusion was found on an ECHO with EF 65%. A repeat ECHO said small pericardial effusion. Per phone conversation with Dr. Parmar, patient should hold lisinopril and metoprolol until f/u with outpatient doctor. Dr. Parmar okay with discharge to [facility] as pericardial effusion reduced from moderate to small on repeat ECHO. Due to severe protein calorie malnutrition, patient instructed to supplement diet with glucerna and ensure. Date of Discharge: 01/29/20 Minutes to complete discharge: 41 Discharge Summary Problems reviewed: Yes Reason For Visit: ACUTE KIDNEY INJURY Condition: Good - Instructions Diet, Activity, Other Instructions: You were admitted to the hospital due to decreased appetite, weight loss, and low blood pressure. During your hospital stay, you were evaluated with blood work, lab work, and imaging including an echocardiogram of your heart. Your lab work and evaluation showed that your symptoms were likely caused by dehydration. We treated you with fluids and your symptoms self-resolved. While you were here, your blood work also showed anemia, for which you will need to follow up with the director of patient safety. Recommendation: To prevent future re-occurrence of your symptoms, please ensure you maintain adequate hydration and diet. Diet Recommendation: To improve your diet, we recommend you take dietary supplementation such as Glucerna shakes twice a day and Ensure pudding daily. Medication: Please STOP taking your Metoprolol and Lisinopril until you are re-evaluated by [facility] physicians/Community Educator. Your blood pressure medications were stopped due to your low blood pressure. Please START taking Ferrous sulfate 325 daily Please START taking Docusate, Miralax and Senna for constipation daily as needed Please continue all your medications as prescribed. Imaging Findings: Your echocardiogram showed some fluid around your heart and your right heart pressures were also found to be elevated (Right ventricular pressure 30 to 40 mmHg) There is also a mild abnormality noted on the ultrasound of your kidney, please follow up with your primary care physician for this. Your imaging also showed a small amount of fluid around your heart, for which we had the chief meteorologist evaluate you and would like to see you at his office outpatient. Follow ups: Please follow up with the Hematology physician Dr. Missy Ryan within 1 week regarding your anemia. Please follow up with the Community Educator physician Dr. Maia Jerez within 1 week regarding your echocardiogram findings and re-evaluation for restarting Metoprolol and Lisinopril Please follow up with the Urologist, Gumaro Morris within 1 week to repeat your renal ultrasound. Please follow up with your primary care physician or the one we have provided you with, Dr. Samy Long within 1 week to reassess the need to resume your blood pressure medications. Return to the emergency room if you experience any worsening of your symptoms, chest pain, abdominal pain, or any worsening of your condition. Referrals: Samy Long MD [Staff Physician] - 1 Week Missy Ryan MD [Staff Physician] - 1 Week Gumaro Chappell MD [Staff Physician] - 1 Week (mild hydro) Maia Jerez MD [Staff Physician] - 1 Week Disposition: I.P. ALCOHOL/SUBS ABUSE REHAB - Home Medications Comprehensive Discharge Medication List: Ambulatory Orders Buspirone HCl [Buspar -] 15 mg PO BID 01/10/20 Escitalopram Oxalate [Lexapro -] 10 mg PO DAILY 01/10/20 Quetiapine Fumarate [Seroquel -] 300 mg PO HS 01/10/20 Lovastatin [Altoprev] 20 mg PO DAILY 01/23/20 Metformin HCl [Glucophage] 500 mg PO BID 01/23/20 Trazodone HCl 150 mg PO HS 01/23/20 Docusate Sodium [Colace -] 100 mg PO DAILY #7 capsule 01/29/20 Ferrous Sulfate 325 mg PO DAILY #30 tablet 01/29/20 Polyethylene Glycol 3350 [Miralax 119 gm Btl -] 17 gm PO DAILY #7 bottle 01/29/20 Sennosides [Senna -] 1 tab PO HS #7 tablet 01/29/20 This patient is new to me today: No Emergency Visit: Yes ED Registration Date: 01/23/20 Care time: The patient presented to the Emergency Department on the above date and was hospitalized for further evaluation of their emergent condition. Critical Care patient: No - Discharge Referral Referred to [facility] Med P.C.: No ATTENDING PHYSICIAN STATEMENT I saw and evaluated the patient. I reviewed the resident's note and discussed the case with the resident. I agree with the resident's findings and plan as documented. SUBJECTIVE: OBJECTIVE: ASSESSMENT AND PLAN:
[2020-01-29 19:10] VITALS: BP 140/80; PULSE 94; TEMP 98.9
== END 2020-01-29 19:00 | disposition other institution (70) | DRG 640 ==
LOC: JER 11:58 → JERBED 15:33 → J5S 21:33 → J7W 01-28 18:17
PROVIDERS: ADMIT Internal Medicine; ATTEND Internal Medicine
DX: E86.0 Dehydration (principal); E43 Unspecified severe protein-calorie malnutrition; N17.9 Acute kidney failure, unspecified; F11.20 Opioid dependence, uncomplicated; N13.30 Unspecified hydronephrosis; I31.3 Pericardial effusion (noninflammatory); Z68.1 Body mass index [BMI] 19.9 or less, adult; R64 Cachexia; I95.9 Hypotension, unspecified; E83.39 Other disorders of phosphorus metabolism; E11.9 Type 2 diabetes mellitus without complications; F20.9 Schizophrenia, unspecified; F19.10 Other psychoactive substance abuse, uncomplicated; I10 Essential (primary) hypertension; E78.5 Hyperlipidemia, unspecified; D50.9 Iron deficiency anemia, unspecified; K59.00 Constipation, unspecified; F14.10 Cocaine abuse, uncomplicated
CPT/HCPCS: 36415; 71045-TC-FY; 76775-TC; 80048; 80053; 81003; 82272; 82550; 82607; 82728; 82746; 82962; 83010; 83540; 83550; 83615; 83735; 84100; 84443; 84484; 85025; 85027; 85610; 85651; 85730; 86140; 86880; 93005; 93010; 93306-TC; 99285-25; J1644; J1756; U0003

== ENCOUNTER 2020-01-29 20:48 | Inpatient (IN) | payer OTHER ==
--- NOTE | 2020-01-29 20:00 | HP ---
CIWA Score - Admission Criteria OASAS Guidelines: Admission for Medically Managed Detox: Requires at least one of the followin. CIWA greater than 12 2. Seizures within the past 24 hours 3. Delirium tremens within the past 24 hours 4. Hallucinations within the past 24 hours 5. Acute intervention needed for co occurring medical disorder 6. Acute intervention needed for co occurring psychiatric disorder 7. Severe withdrawal that cannot be handled at a lower level of care (continued vomiting, continued diarrhea, abnormal vital signs) requiring intravenous medication and/or fluids 8. Admitting History and Physical - Past Medical History Cardiovascular: Yes: HTN, Hyperlipdemia Psych: Yes: Anxiety, Bipolar, Schizophrenia Endocrine: Yes: Diabetes Mellitus - Past Surgical History Past Surgical History: Yes: - Smoking History Smoking history: Former smoker Have you smoked in the past 12 months: Yes Aproximately how many cigarettes per day: 10 - Alcohol/Substance Use Hx Alcohol Use: No History of Substance Use: reports: Cocaine, Heroin Date of Last Use: 01/09/20 - Social History ADL: Independent Occupation: retired, on SSI History of Recent Travel: No Admission [facility] Allergies/Adverse Reactions: Allergies Allergy/AdvReac Type Severity Reaction Status Date / Time No Known Allergies Allergy Verified 01/29/20 20:52 History of Present Illness: 64 y.o female returns from hospitalization @ [facility] 01/22-01/28 for MAVIS , denies complaints at this time. hospital d/c reviewed : "Please STOP taking your Metoprolol and Lisinopril until you are re-evaluated by [facility] physicians/Retail Field Representative. Your blood pressure medications were stopped due to your low blood pressure. Please START taking Ferrous sulfate 325 daily Please START taking Docusate, Miralax and Senna for constipation daily as needed Please continue all your medications as prescribed. Imaging Findings: Your echocardiogram showed some fluid around your heart and your right heart pressures were also found to be elevated (Right ventricular pressure 30 to 40 mmHg) There is also a mild abnormality noted on the ultrasound of your kidney, please follow up with your primary care physician for this. Your imaging also showed a small amount of fluid around your heart, for which we had the obstetrician gynecologist evaluate you and would like to see you at his office outpatient. Follow ups: Please follow up with the Hematology physician Dr. Missy Ryan within 1 week regarding your anemia. Please follow up with the Retail Field Representative physician Dr. Maia Jerez within 1 week regarding your echocardiogram findings and re-evaluation for restarting Metoprolol and Lisinopril Please follow up with the Urologist, Gumaro Morris within 1 week to repeat your renal ultrasound. Please follow up with your primary care physician or the one we have provided you with, Dr. Samy Long within 1 week to reassess the need to resume your blood pressure medications. Return to the emergency room if you experience any worsening of your symptoms, chest pain, abdominal pain, or any worsening of your condition." Exam Limitations: No Limitations - Review of Systems Constitutional: No Symptoms Reported EENT: reports: Other (left glasses , dentures upper) Respiratory: reports: No Symptoms reported Cardiac: reports: No Symptoms Reported GI: reports: No Symptoms Reported : reports: No Symptoms Reported Musculoskeletal: reports: No Symptoms Reported Integumentary: reports: No Symptoms Reported Neuro: reports: No Symptoms reported Endocrine: reports: See HPI Hematology: reports: Anemia Psychiatric: reports: Orientated x3, Anxious Patient History - Patient Medical History Hx Anemia: No Hx Asthma: No Hx Chronic Obstructive Pulmonary Disease (COPD): No Hx Cancer: No Hx Cardiac Disorders: No Hx Congestive Heart Failure: No Hx Hypertension: Yes (ON MEDS) Hx Hypercholesterolemia: Yes Hx Pacemaker: No HX Cerebrovascular Accident: No Hx Seizures: Yes (2005- DRUG RLT) Hx Dementia: No Hx Diabetes: Yes Hx Gastrointestinal Disorders: No Hx Liver Disease: No Hx Genitourinary Disorders: No Hx Sexually Transmitted Disorders: No Hx Renal Disease (ESRD): No Hx Thyroid Disease: No Hx Human Immunodeficiency Virus (HIV): No Hx Hepatitis C: No Hx Depression: Yes Hx Suicide Attempt: No Hx Bipolar Disorder: No Hx Schizophrenia: Yes - Patient Surgical History Past Surgical History: No Hx Neurologic Surgery: No Hx Cataract Extraction: No Hx Cardiac Surgery: No Hx Lung Surgery: No Hx Breast Surgery: No Hx Breast Biopsy: No Hx Abdominal Surgery: No Hx Appendectomy: No Hx Cholecystectomy: No Hx Genitourinary Surgery: No Hx Section: No Hx Orthopedic Surgery: No Hx Hysterectomy: No Anesthesia Reaction: No - PPD History Date: 01/12/20 Results: 0 MM - Smoking Cessation Smoking history: Former smoker Have you smoked in the past 12 months: Yes Aproximately how many cigarettes per day: 10 Hx Chewing Tobacco Use: No Initiated information on smoking cessation: No Admission Physical Exam BHS - Physical General Appearance: Yes: No Apparent Distress HEENTM: Yes: EOMI, Hearing grossly Normal, Normocephalic, Normal Voice Respiratory: Yes: Chest Non-Tender, Lungs Clear, Normal Breath Sounds, No Respiratory Distress, No Accessory Muscle Use Neck: Yes: No masses,lesions,Nodules, Trachea in good position Cardiology: Yes: Regular Rhythm, Regular Rate, S1, S2, Tachycardia (INSPIRATORY VARIABILITY) Abdominal: Yes: Non Tender, Soft Back: Yes: Normal Inspection Musculoskeletal: Yes: full range of Motion, Gait Steady Extremities: Yes: Normal Inspection, Normal Range of Motion, Non-Tender Neurological: Yes: Fully Oriented, Alert, Motor Strength 5/5 Integumentary: Yes: Warm - Diagnostic (1) Opioid use disorder Current Visit: Yes Status: Chronic (2) Cocaine use disorder Current Visit: Yes Status: Chronic Breathalyzer - Breathalyzer Breathalyzer: 0 Urine Drug Screen - Test Device Lot number: [id number] Expiration date: 03/23/21 - Control Is test valid?: Yes - Results Drug screen NEGATIVE: No Urine drug screen results: DOROTHY-Cocaine, FEN-Fentanyl, MOP-Opiates Inpatient Rehab Admission - Rehab Decision to Admit Inpatient rehab admission?: Yes - Initial Determination Are CD services needed?: Yes Free of communicable disease: Yes Not in need of hospitalization: Yes - Rehab Admission Criteria Previous failed treatment: No Poor recovery environment: Yes Comorbidities: Yes Lacks judgement: Yes Patient is meeting Inpatient Rehab admission criteria:: Yes
[~2020-01-29 20:48] MED LIST: ACETAMINOPHEN 325 MG TABLET (FP) PO PRN; DOCUSATE SODIUM 100 MG CAPSULE (FP) PO PRN; LOPERAMIDE HCL 2 MG CAPSULE PO PRN; MAGNESIUM CITRATE 300 ML BOTTLE PO PRN; MAGNESIUM HYDROX 2400MG/30ML ORAL SUSPENSION 30 ML CUP PO PRN; P-EPHED 60MG/TRIPROLIDI 2.5MG TABLET PO PRN; POLYETHYLENE GLYCOL 3350 119 GM BTL PO PRN; SENNOSIDES 8.6MG TABLET (FP) PO PRN; guaiFENesin 200 MG/10 ML 10 ML UNIT-DOSE CUPS PO PRN; hydrOXYzine PAMOATE 25 MG CAPSULE (FP) PO PRN
[2020-01-29 20:53] VITALS: BMI 16.8
[2020-01-29] MEDS: MELATONIN 5 MG TABLETS PO PRN (21:34)
[2020-01-29] MEDS: THIAMINE HCL 100 MG TABLET (FP) PO SCH (21:34)
[2020-01-29] MEDS: QUEtiapine FUMARATE 100 MG TABLET (FP) PO SCH (21:34)
--- NOTE | 2020-01-30 09:10 | PN ---
S Progress Note (SOAP) Subjective: Patient readmitted to Rehab after transferred to [facility] for B/P of 61/40, P=120 on 01/22 PMHx: 4 year old female with history of opioid dependence and cocaine use disorder. Heroin: 2 bags daily, started at age 42, she did overdose 6 months ago, doesn't have a narcan kit Cocaine: 2 bags daily, started using at age 22, PMH: HTN, DM,HLD, Psurg: C/S and tubal ligation Psych: Schizophrenia, Bipolar trazodone seroquel Lives with daughter and granddaughter in [place] Objective: General: no apparent distress HEENTM: normocephalic, PERRLA Neck: supple Cardiac: s1 s2 Lungs: clear ABD: +BS, soft, non-tender, flat MSK: full weight bearing, steady gait, full ROM Neuro: no cognitive deficits, A=O x 4, Cn 2-12 intact. Vital Signs Period Temp Pulse Resp BP Sys/Alfaro Pulse Ox Last 24 Hr 97.3 F-98.1 F 96-105 18-18 129-140/68-83 95-99 Laboratory Last Values POC Glucometer 101 UNITS (80-120) 01/30/20 06:26 01/30/20 11:14 Assessment: s/p hospitalization for acute kidney injury substance use disorder 01/30/20 09:12 Plan: hospital recommended the following upon discharge: STOP Metoprolol and Lisinopril until re-evaluated by [facility] physicians/Patroller. START Ferrous sulfate 325 daily START taking Docusate, Miralax and Senna for constipation PRN Substance use disorder: continue rehab Nutrition Hydration Maintain safety
--- NOTE | 2020-01-30 10:03 | CONSULT ---
[facility] Psychiatric Consult - Data Date of interview: 01/30/20 Admission source: [facility] Identifying data: Patient is a 64 year old female, mother of three daughters, unemployed, domiciled, and is supported by [facility]. This is patient's first admission to detox at [facility]. Patient admitted to for cocaine and opiate dependence. Substance Abuse History: Smoking Cessation. Smoking history: Current every day smoker. Have you smoked in the past 12 months: Yes. Aproximately how many cigarettes per day: 10. Hx Chewing Tobacco Use: No. Initiated information on smoking cessation: Yes. 'Breaking Loose' booklet given: 01/10/20. - Substances abused. Heroin. Substance route: Inhalation. Frequency: Daily. Amount used: 2 bags. Age of first use: 42. Date of last use: 01/09/20. Cocaine. Substance route: Inhalation. Frequency: Daily. Amount used: 2 bags. Age of first use: 22. Date of last use: 01/09/20 Medical History: Significant for Hypertension, Diabetes, and Hyperlipidemia Psychiatric History: Patient seen by keno writer / runner while in detox. History remains consistent. Patient was transferred to [facility] on 01/23/20 due to hypotension and cachectic presentation. Ms. Saez reports history of two psychiatric hospitalizations. In 1999 she was hospitalized at [facility] after having a suicide attempt and endorsing auditory hallucinations. She was diagnosed with schizophrenia and prescribed psychotropic medications. Patient's second psychiatric hospitalization occured in 2004 at [facility] due to depression. Ms. Saez is currently provided with psychiatric care at [facility] in [place]. Patient is prescribed Lexapro 10mg + Buspar 15mg BID + Seroquel 300mg HS + Trazodone 150mg (medications confirmed in detox). Patient was noncompliant to medications for several months prior to admission to detox. Patient denies suicidal/homicidal ideaton, auditory/visual hallucinations. Physical/Sexual Abuse/Trauma History: denies. Mental Status Exam - Mental Status Exam Alert and Oriented to: Time, Place, Person Cognitive Function: Good Patient Appearance: Well Groomed Mood: Hopeful Affect: Appropriate Patient Behavior: Appropriate, Cooperative Speech Pattern: Appropriate Voice Loudness: Normal Thought Process: Goal Oriented Thought Disorder: Not Present Hallucinations: Denies Suicidal Ideation: Denies Homicidal Ideation: Denies Insight/Judgement: Poor Sleep: Fair Appetite: Fair Muscle strength/Tone: Normal Gait/Station: Normal Psychiatric Findings - Problem List ([place] 1, 2,3) (1) History of schizophrenia Current Visit: Yes Status: Chronic (2) Cocaine use disorder Current Visit: Yes Status: Chronic (3) Opioid use disorder Current Visit: Yes Status: Chronic - Initial Treatment Plan Initial Treatment Plan: Psychoeducation provided. Detoxification in progress. Lexapro 10mg daily + Buspar 15mg BID + Seroquel 300mg HS. Will hold Trazodone due to risk of sedation. Benefits and side effects discussed. Verbal consent given.
[2020-01-30] MEDS: PRENATAL VITAMINS W/ FOLIC ACID TABLET (FP) PO SCH (10:36)
[2020-01-30] MEDS: FERROUS SO4 325 MG TABLET (FP) PO SCH (10:36)
[2020-01-30] MEDS: NICOTINE 7 MG/24 HOURS TOPICAL PATCH TD SCH (10:36)
[2020-01-30] MEDS: BUPRENORPHINE/NALOXONE 4 MG/1 MG FILM PACKET SL SCH (10:36)
[2020-01-30 11:33] LABS: URINE APPEARANCE CLEAR; URINE BILIRUBIN NEGATIVE (NEGATIVE); URINE COLOR YELLOW; URINE GLUCOSE (UA) NEGATIVE (NEGATIVE); URINE KETONE NEGATIVE (NEGATIVE); URINE LEUK ESTERASE NEGATIVE (NEGATIVE); URINE NITRITE NEGATIVE (NEGATIVE); URINE PROTEIN NEGATIVE (NEGATIVE)
[2020-01-30] MEDS: THIAMINE HCL 100 MG TABLET (FP) PO SCH (21:31)
[2020-01-30] MEDS: QUEtiapine FUMARATE 100 MG TABLET (FP) PO SCH (21:31)
[2020-01-30] MEDS: ATORVASTATIN CA 10 MG TABLET (FP) PO SCH (21:31)
[2020-01-31] MEDS: NICOTINE 7 MG/24 HOURS TOPICAL PATCH TD SCH (10:15)
[2020-01-31] MEDS: ESCITALOPRAM OXALATE 10 MG TABLET PO SCH (10:15)
[2020-01-31] MEDS: FERROUS SO4 325 MG TABLET (FP) PO SCH (10:15)
[2020-01-31] MEDS: BUPRENORPHINE/NALOXONE 4 MG/1 MG FILM PACKET SL SCH (10:15)
[2020-01-31] MEDS: PRENATAL VITAMINS W/ FOLIC ACID TABLET (FP) PO SCH (10:15)
[2020-01-31] MEDS: MAG HYDROX/AL HYDROX/SIMETH 30 ML UNIT-DOSE CUP PO PRN ×2 (10:17→18:58)
--- NOTE | 2020-01-31 12:58 | PN ---
[facility] Progress Note Note: Patient readmitted from [facility] 01/29/2020 for hypotension and dehydration. Labs reviewed from [facility] on 01/29/2020 shows Hgb 7.2 and HCT 22.4. Patient started on FeSo4 supplement prior to discharge from [facility]. BP improved since readmission. Vital Signs Temperature 98.2 F 01/31/20 07:02 Pulse Rate 105 H 01/31/20 07:02 Respiratory Rate 18 01/31/20 07:02 Blood Pressure 108/75 01/31/20 07:02 O2 Sat by Pulse Oximetry (%) 98 01/31/20 07:02 a/p: Anemia Will continue FeSo4 and repeat CBC 02/03/2020.
[2020-01-31] MEDS: MELATONIN 5 MG TABLETS PO PRN (21:26)
[2020-01-31] MEDS: THIAMINE HCL 100 MG TABLET (FP) PO SCH (21:26)
[2020-01-31] MEDS: ATORVASTATIN CA 10 MG TABLET (FP) PO SCH (21:26)
[2020-01-31] MEDS: QUEtiapine FUMARATE 100 MG TABLET (FP) PO SCH (21:27)
[2020-02-01] MEDS: PRENATAL VITAMINS W/ FOLIC ACID TABLET (FP) PO SCH (09:39)
[2020-02-01] MEDS: FERROUS SO4 325 MG TABLET (FP) PO SCH (09:39)
[2020-02-01] MEDS: ESCITALOPRAM OXALATE 10 MG TABLET PO SCH (09:39)
[2020-02-01] MEDS: BUPRENORPHINE/NALOXONE 4 MG/1 MG FILM PACKET SL SCH (09:40)
[2020-02-01] MEDS: NICOTINE 7 MG/24 HOURS TOPICAL PATCH TD SCH (09:40)
[2020-02-01] MEDS: QUEtiapine FUMARATE 100 MG TABLET (FP) PO SCH (21:13)
[2020-02-01] MEDS: THIAMINE HCL 100 MG TABLET (FP) PO SCH (21:13)
[2020-02-01] MEDS: ATORVASTATIN CA 10 MG TABLET (FP) PO SCH (21:13)
[2020-02-01] MEDS: MELATONIN 5 MG TABLETS PO PRN (21:13)
[2020-02-01] MEDS: MAG HYDROX/AL HYDROX/SIMETH 30 ML UNIT-DOSE CUP PO PRN (21:16)
[2020-02-02] MEDS: BUPRENORPHINE/NALOXONE 4 MG/1 MG FILM PACKET SL SCH (09:49)
[2020-02-02] MEDS: ESCITALOPRAM OXALATE 10 MG TABLET PO SCH (09:49)
[2020-02-02] MEDS: FERROUS SO4 325 MG TABLET (FP) PO SCH (09:49)
[2020-02-02] MEDS: MAG HYDROX/AL HYDROX/SIMETH 30 ML UNIT-DOSE CUP PO PRN (09:52)
[2020-02-02] MEDS: NICOTINE 7 MG/24 HOURS TOPICAL PATCH TD SCH (09:52)
[2020-02-02] MEDS: PRENATAL VITAMINS W/ FOLIC ACID TABLET (FP) PO SCH (09:53)
[2020-02-02] MEDS ORDERED: QUEtiapine FUMARATE 50 MG TABLET ONE (18:47)
[2020-02-02] MEDS: QUEtiapine FUMARATE 100 MG TABLET (FP) PO SCH (21:25)
[2020-02-02] MEDS: ATORVASTATIN CA 10 MG TABLET (FP) PO SCH (21:25)
[2020-02-02] MEDS: THIAMINE HCL 100 MG TABLET (FP) PO SCH (21:25)
[2020-02-02] MEDS: MELATONIN 5 MG TABLETS PO PRN (21:25)
[2020-02-03] MEDS: FERROUS SO4 325 MG TABLET (FP) PO SCH (09:42)
[2020-02-03] MEDS: ESCITALOPRAM OXALATE 10 MG TABLET PO SCH (09:42)
[2020-02-03] MEDS: PRENATAL VITAMINS W/ FOLIC ACID TABLET (FP) PO SCH (09:43)
[2020-02-03] MEDS: BUPRENORPHINE/NALOXONE 4 MG/1 MG FILM PACKET SL SCH (09:43)
[2020-02-03] MEDS: NICOTINE 7 MG/24 HOURS TOPICAL PATCH TD SCH (09:43)
[2020-02-03 11:10] LABS: BASO % 0.6 % (0-2.0); EOS % 0.2 % (0-4.5); HEMATOCRIT 27.8 % (32.4-45.2); HEMOGLOBIN 8.8 GM/dL (10.7-15.3); LYMPH % 52.9 % (8-40); MCH 28.3 pg (25.7-33.7); MCHC 31.6 g/dl (32.0-36.0); MEAN CELL VOLUME 89.7 fl (80-96); MEAN PLT VOLUME 7.5 fl (7.5-11.1); MONO % 16.9 % (3.8-10.2); NEUT % 29.4 % (42.8-82.8); PLATELET COUNT 368 K/MM3 (134-434); WHITE BLOOD COUNT 5.6 K/mm3 (4.0-10.0)
[2020-02-03] MEDS ORDERED: COLLOIDAL OATMEAL 1 BAR EACH TP PRN (13:07)
[2020-02-03] MEDS: QUEtiapine FUMARATE 100 MG TABLET (FP) PO SCH (21:24)
[2020-02-03] MEDS: THIAMINE HCL 100 MG TABLET (FP) PO SCH (21:24)
[2020-02-03] MEDS: MAG HYDROX/AL HYDROX/SIMETH 30 ML UNIT-DOSE CUP PO PRN (21:24)
[2020-02-03] MEDS: ATORVASTATIN CA 10 MG TABLET (FP) PO SCH (21:25)
[2020-02-04] MEDS: BUPRENORPHINE/NALOXONE 4 MG/1 MG FILM PACKET SL SCH (10:05)
[2020-02-04] MEDS: ESCITALOPRAM OXALATE 10 MG TABLET PO SCH (10:05)
[2020-02-04] MEDS: NICOTINE 7 MG/24 HOURS TOPICAL PATCH TD SCH (10:05)
[2020-02-04] MEDS: FERROUS SO4 325 MG TABLET (FP) PO SCH (10:05)
[2020-02-04] MEDS: PRENATAL VITAMINS W/ FOLIC ACID TABLET (FP) PO SCH (10:06)
[2020-02-04] MEDS: MAG HYDROX/AL HYDROX/SIMETH 30 ML UNIT-DOSE CUP PO PRN (16:27)
[2020-02-04] MEDS: THIAMINE HCL 100 MG TABLET (FP) PO SCH (21:43)
[2020-02-04] MEDS: QUEtiapine FUMARATE 100 MG TABLET (FP) PO SCH (21:44)
[2020-02-04] MEDS: ATORVASTATIN CA 10 MG TABLET (FP) PO SCH (21:44)
[2020-02-05] MEDS: BUPRENORPHINE/NALOXONE 4 MG/1 MG FILM PACKET SL SCH (09:56)
[2020-02-05] MEDS: NICOTINE 7 MG/24 HOURS TOPICAL PATCH TD SCH (09:56)
[2020-02-05] MEDS: ESCITALOPRAM OXALATE 10 MG TABLET PO SCH (09:56)
[2020-02-05] MEDS: PRENATAL VITAMINS W/ FOLIC ACID TABLET (FP) PO SCH (09:56)
[2020-02-05] MEDS: FERROUS SO4 325 MG TABLET (FP) PO SCH (09:56)
[2020-02-05] MEDS: MAG HYDROX/AL HYDROX/SIMETH 30 ML UNIT-DOSE CUP PO PRN ×2 (09:57→21:13)
[2020-02-05] MEDS: THIAMINE HCL 100 MG TABLET (FP) PO SCH (21:12)
[2020-02-05] MEDS: MELATONIN 5 MG TABLETS PO PRN (21:12)
[2020-02-05] MEDS: QUEtiapine FUMARATE 100 MG TABLET (FP) PO SCH (21:12)
[2020-02-05] MEDS: ATORVASTATIN CA 10 MG TABLET (FP) PO SCH (21:12)
[2020-02-06] MEDS: ESCITALOPRAM OXALATE 10 MG TABLET PO SCH (09:34)
[2020-02-06] MEDS: NICOTINE 7 MG/24 HOURS TOPICAL PATCH TD SCH (09:34)
[2020-02-06] MEDS: PRENATAL VITAMINS W/ FOLIC ACID TABLET (FP) PO SCH (09:34)
[2020-02-06] MEDS: FERROUS SO4 325 MG TABLET (FP) PO SCH (09:34)
[2020-02-06] MEDS: BUPRENORPHINE/NALOXONE 4 MG/1 MG FILM PACKET SL SCH (09:35)
[2020-02-06] MEDS: QUEtiapine FUMARATE 100 MG TABLET (FP) PO SCH (21:36)
[2020-02-06] MEDS: THIAMINE HCL 100 MG TABLET (FP) PO SCH (21:36)
[2020-02-06] MEDS: ATORVASTATIN CA 10 MG TABLET (FP) PO SCH (21:36)
[2020-02-06] MEDS: MAG HYDROX/AL HYDROX/SIMETH 30 ML UNIT-DOSE CUP PO PRN (21:37)
--- NOTE | 2020-02-07 09:31 | PN ---
[facility] Progress Note Note: Vital Signs Temperature 99.7 F H 02/07/20 06:25 Pulse Rate 77 02/07/20 06:25 Respiratory Rate 20 02/07/20 06:25 Blood Pressure 137/88 02/07/20 06:25 O2 Sat by Pulse Oximetry (%) 98 02/07/20 06:25 Laboratory Last Values WBC 5.6 K/mm3 (4.0-10.0) 02/03/20 08:00 RBC 3.10 M/mm3 (3.60-5.2) L 02/03/20 08:00 Hgb 8.8 GM/dL (10.7-15.3) L 02/03/20 08:00 Hct 27.8 % (32.4-45.2) L D 02/03/20 08:00 MCV 89.7 fl (80-96) 02/03/20 08:00 MCH 28.3 pg (25.7-33.7) 02/03/20 08:00 MCHC 31.6 g/dl (32.0-36.0) L 02/03/20 08:00 RDW 18.0 % (11.6-15.6) H 02/03/20 08:00 Plt Count 368 K/MM3 (134-434) D 02/03/20 08:00 MPV 7.5 fl (7.5-11.1) 02/03/20 08:00 Absolute Neuts (auto) 1.6 K/mm3 (1.5-8.0) 02/03/20 08:00 Neutrophils % 29.4 % (42.8-82.8) L D 02/03/20 08:00 Lymphocytes % 52.9 % (8-40) H D 02/03/20 08:00 Monocytes % 16.9 % (3.8-10.2) H D 02/03/20 08:00 Eosinophils % 0.2 % (0-4.5) D 02/03/20 08:00 Basophils % 0.6 % (0-2.0) 02/03/20 08:00 Nucleated RBC % 0 % (0-0) 02/03/20 08:00 POC Glucometer 106 UNITS (80-120) 02/07/20 06:29 Urine Color Yellow 01/30/20 08:15 Urine Appearance Clear 01/30/20 08:15 Urine pH 8.0 (5.0-8.0) D 01/30/20 08:15 Ur Specific [place] 1.009 (1.010-1.035) L 01/30/20 08:15 Urine Protein Negative (NEGATIVE) 01/30/20 08:15 Urine Glucose (UA) Negative (NEGATIVE) 01/30/20 08:15 Urine Ketones Negative (NEGATIVE) 01/30/20 08:15 Urine Blood Negative (NEGATIVE) 01/30/20 08:15 Urine Nitrite Negative (NEGATIVE) 01/30/20 08:15 Urine Bilirubin Negative (NEGATIVE) 01/30/20 08:15 Urine Urobilinogen 1.0 mg/dL (0.2-1.0) 01/30/20 08:15 Ur Leukocyte Esterase Negative (NEGATIVE) 01/30/20 08:15 Patient is a 64 yo female with hx of DM II on BGM monitoring BID, requested BGM to be D/C. During her stay BGM has been stable, no s/s of hypoglycemia or hyperglycemia. will d/c BGM and continue to monitor and resume if needed Patient to follow up with PCP upon discharge.
[2020-02-07] MEDS: MAG HYDROX/AL HYDROX/SIMETH 30 ML UNIT-DOSE CUP PO PRN (09:44)
[2020-02-07] MEDS: BUPRENORPHINE/NALOXONE 4 MG/1 MG FILM PACKET SL SCH (09:44)
[2020-02-07] MEDS: ESCITALOPRAM OXALATE 10 MG TABLET PO SCH (09:44)
[2020-02-07] MEDS: PRENATAL VITAMINS W/ FOLIC ACID TABLET (FP) PO SCH (09:44)
[2020-02-07] MEDS: FERROUS SO4 325 MG TABLET (FP) PO SCH (09:44)
[2020-02-07] MEDS: NICOTINE 7 MG/24 HOURS TOPICAL PATCH TD SCH (09:45)
[2020-02-07] MEDS: ATORVASTATIN CA 10 MG TABLET (FP) PO SCH (21:10)
[2020-02-07] MEDS: QUEtiapine FUMARATE 100 MG TABLET (FP) PO SCH (21:10)
[2020-02-07] MEDS: THIAMINE HCL 100 MG TABLET (FP) PO SCH (21:10)
[2020-02-07] MEDS: MELATONIN 5 MG TABLETS PO PRN (21:10)
[2020-02-08] MEDS: BUPRENORPHINE/NALOXONE 4 MG/1 MG FILM PACKET SL SCH (09:48)
[2020-02-08] MEDS: PRENATAL VITAMINS W/ FOLIC ACID TABLET (FP) PO SCH (09:48)
[2020-02-08] MEDS: ESCITALOPRAM OXALATE 10 MG TABLET PO SCH (09:48)
[2020-02-08] MEDS: FERROUS SO4 325 MG TABLET (FP) PO SCH (09:48)
[2020-02-08] MEDS: NICOTINE 7 MG/24 HOURS TOPICAL PATCH TD SCH (09:48)
[2020-02-08] MEDS: MAG HYDROX/AL HYDROX/SIMETH 30 ML UNIT-DOSE CUP PO PRN ×2 (09:49→21:37)
[2020-02-08] MEDS: THIAMINE HCL 100 MG TABLET (FP) PO SCH (21:37)
[2020-02-08] MEDS: QUEtiapine FUMARATE 100 MG TABLET (FP) PO SCH (21:37)
[2020-02-08] MEDS: ATORVASTATIN CA 10 MG TABLET (FP) PO SCH (21:37)
[2020-02-09] MEDS: PRENATAL VITAMINS W/ FOLIC ACID TABLET (FP) PO SCH (09:56)
[2020-02-09] MEDS: ESCITALOPRAM OXALATE 10 MG TABLET PO SCH (09:56)
[2020-02-09] MEDS: NICOTINE 7 MG/24 HOURS TOPICAL PATCH TD SCH (09:56)
[2020-02-09] MEDS: BUPRENORPHINE/NALOXONE 4 MG/1 MG FILM PACKET SL SCH (09:56)
[2020-02-09] MEDS: FERROUS SO4 325 MG TABLET (FP) PO SCH (09:56)
[2020-02-09] MEDS: MAG HYDROX/AL HYDROX/SIMETH 30 ML UNIT-DOSE CUP PO PRN ×2 (09:59→21:24)
[2020-02-09] MEDS: THIAMINE HCL 100 MG TABLET (FP) PO SCH (21:22)
[2020-02-09] MEDS: ATORVASTATIN CA 10 MG TABLET (FP) PO SCH (21:22)
[2020-02-09] MEDS: QUEtiapine FUMARATE 100 MG TABLET (FP) PO SCH (21:22)
[2020-02-10] MEDS: NICOTINE 7 MG/24 HOURS TOPICAL PATCH TD SCH (09:46)
[2020-02-10] MEDS: FERROUS SO4 325 MG TABLET (FP) PO SCH (09:46)
[2020-02-10] MEDS: ESCITALOPRAM OXALATE 10 MG TABLET PO SCH (09:47)
[2020-02-10] MEDS: BUPRENORPHINE/NALOXONE 4 MG/1 MG FILM PACKET SL SCH (09:47)
[2020-02-10] MEDS: PRENATAL VITAMINS W/ FOLIC ACID TABLET (FP) PO SCH (09:47)
[2020-02-10] MEDS: MAG HYDROX/AL HYDROX/SIMETH 30 ML UNIT-DOSE CUP PO PRN ×2 (09:48→21:35)
--- NOTE | 2020-02-10 12:54 | PN ---
[facility] Progress Note Note: Laboratory Tests 01/30/20 01/30/20 01/30/20 06:26 08:15 16:44 WBC RBC Hgb Hct MCV MCH MCHC RDW Plt Count MPV Absolute Neuts (auto) Neutrophils % Lymphocytes % Monocytes % Eosinophils % Basophils % Nucleated RBC % POC Glucometer 101 120 Urine Color Yellow Urine Appearance Clear Urine pH 8.0 D Ur Specific [place] 1.009 L Urine Protein Negative Urine Glucose (UA) Negative Urine Ketones Negative Urine Blood Negative Urine Nitrite Negative Urine Bilirubin Negative Urine Urobilinogen 1.0 Ur Leukocyte Esterase Negative 01/31/20 01/31/20 02/01/20 06:28 16:37 06:42 WBC RBC Hgb Hct MCV MCH MCHC RDW Plt Count MPV Absolute Neuts (auto) Neutrophils % Lymphocytes % Monocytes % Eosinophils % Basophils % Nucleated RBC % POC Glucometer 93 93 92 Urine Color Urine Appearance Urine pH Ur Specific [place] Urine Protein Urine Glucose (UA) Urine Ketones Urine Blood Urine Nitrite Urine Bilirubin Urine Urobilinogen Ur Leukocyte Esterase 02/01/20 02/02/20 02/02/20 16:35 06:32 16:37 WBC RBC Hgb Hct MCV MCH MCHC RDW Plt Count MPV Absolute Neuts (auto) Neutrophils % Lymphocytes % Monocytes % Eosinophils % Basophils % Nucleated RBC % POC Glucometer 131 125 101 Urine Color Urine Appearance Urine pH Ur Specific [place] Urine Protein Urine Glucose (UA) Urine Ketones Urine Blood Urine Nitrite Urine Bilirubin Urine Urobilinogen Ur Leukocyte Esterase 02/03/20 02/03/20 02/03/20 06:29 08:00 16:51 WBC 5.6 RBC 3.10 L Hgb 8.8 L Hct 27.8 L D MCV 89.7 MCH 28.3 MCHC 31.6 L RDW 18.0 H Plt Count 368 D MPV 7.5 Absolute Neuts (auto) 1.6 Neutrophils % 29.4 L D Lymphocytes % 52.9 H D Monocytes % 16.9 H D Eosinophils % 0.2 D Basophils % 0.6 Nucleated RBC % 0 POC Glucometer 97 148 Urine Color Urine Appearance Urine pH Ur Specific [place] Urine Protein Urine Glucose (UA) Urine Ketones Urine Blood Urine Nitrite Urine Bilirubin Urine Urobilinogen Ur Leukocyte Esterase 02/04/20 02/04/20 02/05/20 06:54 16:26 07:02 WBC RBC Hgb Hct MCV MCH MCHC RDW Plt Count MPV Absolute Neuts (auto) Neutrophils % Lymphocytes % Monocytes % Eosinophils % Basophils % Nucleated RBC % POC Glucometer 104 116 87 Urine Color Urine Appearance Urine pH Ur Specific [place] Urine Protein Urine Glucose (UA) Urine Ketones Urine Blood Urine Nitrite Urine Bilirubin Urine Urobilinogen Ur Leukocyte Esterase 02/05/20 02/06/20 02/06/20 16:34 06:35 16:53 WBC RBC Hgb Hct MCV MCH MCHC RDW Plt Count MPV Absolute Neuts (auto) Neutrophils % Lymphocytes % Monocytes % Eosinophils % Basophils % Nucleated RBC % POC Glucometer 128 108 163 Urine Color Urine Appearance Urine pH Ur Specific [place] Urine Protein Urine Glucose (UA) Urine Ketones Urine Blood Urine Nitrite Urine Bilirubin Urine Urobilinogen Ur Leukocyte Esterase 02/07/20 06:29 WBC RBC Hgb Hct MCV MCH MCHC RDW Plt Count MPV Absolute Neuts (auto) Neutrophils % Lymphocytes % Monocytes % Eosinophils % Basophils % Nucleated RBC % POC Glucometer 106 Urine Color Urine Appearance Urine pH Ur Specific [place] Urine Protein Urine Glucose (UA) Urine Ketones Urine Blood Urine Nitrite Urine Bilirubin Urine Urobilinogen Ur Leukocyte Esterase Vital Signs Temperature 98 F 02/10/20 06:00 Pulse Rate 110 H 02/10/20 06:00 Respiratory Rate 16 02/10/20 06:00 Blood Pressure 126/81 02/10/20 06:00 O2 Sat by Pulse Oximetry (%) 98 02/10/20 06:00 Patient has hx of DM-11. States she was taking metformin 500mg daily which was stopped after evaluation at ED 01/29/2020. Patient states since stopping medication, her feet have been swollen and is requesting to resume medication. BGM range 90-120 PE alert and oriented x 3 skin warm and dry In nad BLE with +1 pedal edema, Full ROM amb ad janiya A/P: DM Edema Will restart BGM daily, Metformin 500mg po daily continue leg elevation monitor clinically
[2020-02-10] MEDS: MELATONIN 5 MG TABLETS PO PRN (21:34)
[2020-02-10] MEDS: QUEtiapine FUMARATE 100 MG TABLET (FP) PO SCH (21:34)
[2020-02-10] MEDS: ATORVASTATIN CA 10 MG TABLET (FP) PO SCH (21:34)
[2020-02-10] MEDS: THIAMINE HCL 100 MG TABLET (FP) PO SCH (21:34)
[2020-02-11] MEDS: metFORMIN HCL 500 MG TABLET (FP) PO SCH (07:11)
[2020-02-11] MEDS: ESCITALOPRAM OXALATE 10 MG TABLET PO SCH (10:06)
[2020-02-11] MEDS: NICOTINE 7 MG/24 HOURS TOPICAL PATCH TD SCH (10:06)
[2020-02-11] MEDS: PRENATAL VITAMINS W/ FOLIC ACID TABLET (FP) PO SCH (10:06)
[2020-02-11] MEDS: FERROUS SO4 325 MG TABLET (FP) PO SCH (10:06)
[2020-02-11] MEDS: BUPRENORPHINE/NALOXONE 4 MG/1 MG FILM PACKET SL SCH (10:07)
[2020-02-11] MEDS: MAG HYDROX/AL HYDROX/SIMETH 30 ML UNIT-DOSE CUP PO PRN ×2 (10:57→21:11)
--- NOTE | 2020-02-11 11:35 | DS ---
[facility] Rehab Discharge Summary - [facility] Rehab Discharge Summary Admission Date: 01/29/20 Discharge Date: 02/12/20 - History Present History: Cocaine dependence, Opioid dependence Additional Comments: s/p Acute Kidney Injury, dx & treated at [facility] during rehab admission Pertinent Past History: 64 year old female with history of opioid dependence and cocaine use disorder. Heroin: 2 bags daily, started at age 42, overdosed 6 months ago Cocaine: 2 bags daily, started using at age 22, PMH: HTN, DM,HLD, MAVIS secondary to dehydration Psurg: C/S and tubal ligation Psych: Schizophrenia, Bipolar trazodone seroquel Lives with daughter and granddaughter in [place] - Discharge Physical Exam Vital Signs: Vital Signs Temperature 98 F 02/11/20 07:10 Pulse Rate 112 H 02/11/20 07:10 Respiratory Rate 02/11/20 07:10 Blood Pressure 113/68 02/11/20 07:10 O2 Sat by Pulse Oximetry (%) 98 02/11/20 07:10 Pertinent Admission Physical Exam Findings: Physical General Appearance: No Apparent Distress HEENTM: EOMI, Normocephalic, Respiratory:No Respiratory Distress, No Accessory Muscle Use Neck: supple, Trachea in good position Cardiology:S1, S2, Abdominal: +BS,Non Tender, Soft, flat Musculoskeletal: full range of Motion, Gait Steady Neurological: Fully Oriented, Alert, Motor Strength 5/5 SKIN: good turgor - Treatment Discharge Condition: Outpatient referral accepted (Patient will got the [facility]. medically stable for discharge.) Hospital Course: On 01/22 sent to the ED from [facility] for hypotension, which was resolved with fluids. A renal ultrasound found mild bilateral hydronephrosis. A prerenal MAVIS secondary to the dehydration resolved with the IV fluids as well. A moderate pericardial effusion was found on an ECHO with EF 65%. A repeat ECHO said small pericardial effusion. LIsinopril and metoprolol held until f/u with outpatient doctor. Dr. Ghulam gan with discharge to [facility] as pericardial effusion reduced from moderate to small on repeat ECHO. Due to severe protein calorie malnutrition, supplemented diet with glucerna - Medication Discharge Medications: Ambulatory Orders Buspirone HCl [Buspar -] 15 mg PO BID 01/10/20 Escitalopram Oxalate [Lexapro -] 10 mg PO DAILY 01/10/20 Quetiapine Fumarate [Seroquel -] 300 mg PO HS 01/10/20 Trazodone HCl 150 mg PO HS 01/23/20 Buprenorphine HCl/Naloxone HCl [Suboxone 4 mg/1 mg Film Packet] 1 each SL DAILY 7 Days #7 film MDD 4mg/1mg film packet 02/11/20 Docusate Sodium [Colace -] 100 mg PO DAILY #7 capsule 02/11/20 Ferrous Sulfate 325 mg PO DAILY #30 tablet 02/11/20 Lovastatin [Altoprev] 20 mg PO DAILY #30 tab.sr 02/11/20 Metformin HCl [Glucophage] 500 mg PO BID #60 tablet 02/11/20 Polyethylene Glycol 3350 [Miralax 119 gm Btl -] 17 gm PO DAILY #7 bottle 02/11/20 Sennosides [Senna -] 1 tab PO HS #7 tablet 02/11/20 - Medication-Assisted Treatment (MAT) Medication-Assisted Treatment (MAT): Yes Medication Prescribed: Buprenorphine - Discharge Instructions Diet, activity, other medical instructions: Diet: as tolerated Activity: as tolerated Other medical instructions: Please follow up with discharge instructions. - Diagnosis (1) Cocaine use disorder Current Visit: Yes Status: Chronic (2) Opioid use disorder Current Visit: Yes Status: Chronic - AMA Did Patient Leave Against Medical Advice: No
[2020-02-11] MEDS: MELATONIN 5 MG TABLETS PO PRN (21:10)
[2020-02-11] MEDS: QUEtiapine FUMARATE 100 MG TABLET (FP) PO SCH (21:10)
[2020-02-11] MEDS: ATORVASTATIN CA 10 MG TABLET (FP) PO SCH (21:10)
[2020-02-11] MEDS: THIAMINE HCL 100 MG TABLET (FP) PO SCH (21:10)
[2020-02-12] MEDS: metFORMIN HCL 500 MG TABLET (FP) PO SCH (07:09)
[2020-02-12 07:15] VITALS: BP 146/87; PULSE 89; TEMP 98.7
[2020-02-12] MEDS: PRENATAL VITAMINS W/ FOLIC ACID TABLET (FP) PO SCH (09:28)
[2020-02-12] MEDS: FERROUS SO4 325 MG TABLET (FP) PO SCH (09:28)
[2020-02-12] MEDS: NICOTINE 7 MG/24 HOURS TOPICAL PATCH TD SCH (09:28)
[2020-02-12] MEDS: ESCITALOPRAM OXALATE 10 MG TABLET PO SCH (09:28)
[2020-02-12] MEDS: BUPRENORPHINE/NALOXONE 4 MG/1 MG FILM PACKET SL SCH (09:29)
== END 2020-02-12 09:37 | disposition home or self-care (01) | DRG 895 ==
LOC: YASAS 20:48 → Y3W 20:52
PROVIDERS: ADMIT Allergy & Immunology; ATTEND Allergy & Immunology
PROC: HZ42ZZZ Group Counseling for Substance Abuse Treatment, Cognitive-Behavioral (ICD-10-PCS; principal; 2020-01-29)
DX: F11.20 Opioid dependence, uncomplicated (principal); F14.20 Cocaine dependence, uncomplicated; I31.3 Pericardial effusion (noninflammatory); F17.210 Nicotine dependence, cigarettes, uncomplicated; F31.9 Bipolar disorder, unspecified; F20.9 Schizophrenia, unspecified; D64.9 Anemia, unspecified; I10 Essential (primary) hypertension; E11.9 Type 2 diabetes mellitus without complications; E78.5 Hyperlipidemia, unspecified; K59.00 Constipation, unspecified; Z86.69 Personal history of other diseases of the nervous system and sense organs; Z98.51 Tubal ligation status; Z79.84 Long term (current) use of oral hypoglycemic drugs; Z56.0 Unemployment, unspecified
CPT/HCPCS: 36415; 81003; 82962; 85025